=== PATIENT | female | born 1955 | race Caucasian/White ===

== ENCOUNTER 2022-11-07 13:36 | Outpatient (CLI) | payer MEDICARE | END 2022-11-07 13:37 | disposition critical access hospital (66) | LOC: EMS 13:36 | DX: R41.0 Disorientation, unspecified (principal); F41.9 Anxiety disorder, unspecified | CPT/HCPCS: A0425; A0427 ==

== ENCOUNTER 2022-11-07 14:57 | Inpatient (IN) | payer MEDICARE, OTHER ==
[2022-11-07] MEDS ORDERED: ONDANSETRON 4 MG/2 ML VIAL IVP STA (15:05)
--- NOTE | 2022-11-07 15:08 | ED Physician Documentation ---
PD HPI ALTERED MENTAL STATUS - Stated complaint Stated Complaint: AMS - History obtained from History obtained from: EMS - Additional information Additional information: All of the history is from EMS as the patient has altered mental status and cannot participate in history. Per EMS the son called 911 today because the patient was altered. Reportedly has been altered for a week but much worse of the last day or so. Recent report of UTI, and reportedly completed antibiotocs, but we are not sure which antibiotic.There is a history of mental health issues. Some concern for overdose. Also a history of alcoholism. Prehospital blood press ure was high in the range 160/120, the rest of her vitals were unremarkable with unremarkable blood sugar. Review of Systems Unable to obtain: Confused PD PAST MEDICAL HISTORY - Allergies Allergies/Adverse Reactions: Allergies Allergy/AdvReac Type Severity Reaction Status Date / Time No Known Drug Allergies Allergy Verified 11/07/22 15:07 PD ED PE NORMAL - Vitals Vital signs reviewed: Yes - General General: Other (Vomiting, largish pupils, which are reactive. Alert and oriented to person only. Does follow simple commands. Appears to have chills.) - HEENT HEENT: Other (Large reactive, pupils, dry mucous membranes) - Neck Neck: Supple, no meningeal sign, No bony TTP - Cardiac Cardiac: RRR, No murmur - Respiratory Respiratory: No respiratory distress, Clear bilaterally - Abdomen Abdomen: Soft, Non tender - Back Back: No CVA TTP, No spinal TTP - Derm Derm: Normal color, Warm and dry - Extremities Extremities: No edema, No calf tenderness / cord - Neuro Neuro: No motor deficit, No sensory deficit Eye Opening: Spontaneous Motor: Obeys Commands Verbal: Confused GCS Score: 14 Results - Vitals Vitals: Vital Signs - 24 hr 11/07/22 11/07/22 11/07/22 15:04 15:07 17:26 Temperature 37.2 C 37.2 C Heart Rate 70 70 103 H Respiratory 13 13 20 Rate Blood Pressure 170/89 H 170/89 H 144/100 H O2 Saturation 96 96 98 11/07/22 11/07/22 11/07/22 18:26 18:30 19:22 Temperature Heart Rate 73 72 68 Respiratory 24 24 22 Rate Blood Pressure 146/99 H 140/90 H 141/114 H O2 Saturation 94 94 100 11/07/22 19:30 Temperature 37.0 C Heart Rate 66 Respiratory 20 Rate Blood Pressure 138/90 H O2 Saturation 100 Oxygen O2 Source Room air - EKG (time done) 1521 Rate: Rate (enter#) (63) Rhythm: NSR Eunice: Normal Intervals: Normal AL QRS: Normal Ischemia: Normal ST segments - Labs Labs: Laboratory Tests 11/07/22 11/07/22 11/07/22 16:23 16:23 16:23 WBC 21.6 H RBC 4.50 Hgb 13.1 Hct 40.1 MCV 89.1 MCH 29.1 MCHC 32.7 RDW 12.7 Plt Count 298 MPV 10.0 Neut # (Auto) Not Reportable Lymph # (Auto) Not Reportable [place] # (Auto) Not Reportable Eos # (Auto) Not Reportable Baso # (Auto) Not Reportable Absolute Nucleated RBC Not Reportable Total Counted 100 Band Neuts % (Manual) 2 Abnorm Lymph % (Manual) 0 Nucleated RBC % Not Reportable Neutrophils # (Manual) 18.8 H Lymphocytes # (Manual) 1.9 Monocytes # (Manual) 0.9 Eosinophils # (Manual) 0.0 Basophils # (Manual) 0.0 Differential Comment MANUAL DIFFERENTIAL WBC Morphology 1+ TOXIC GRANULATION Platelet Estimate NORMAL (130-450,000) Platelet Morphology NORMAL APPEARANCE RBC Morph Micro Appear NORMAL APPEARANCE Sodium 138 Potassium 3.4 L Chloride 105 Carbon Dioxide 20 L Anion Gap 13.0 BUN 15 Creatinine 0.7 Estimated GFR (MDRD) 84 L Glucose 135 H Lactic Acid 2.1 Calcium 8.9 Total Bilirubin 1.2 H AST 34 ALT 16 Alkaline Phosphatase 99 Total Protein 7.3 Albumin 3.4 Globulin 3.9 Albumin/Globulin Ratio 0.9 L TSH Urine Color Urine Clarity Urine pH Ur Specific [place] Urine Protein Urine Glucose (UA) Urine Ketones Urine Occult Blood Urine Nitrite Urine Bilirubin Urine Urobilinogen Ur Leukocyte Esterase Urine RBC Urine WBC Ur Squamous Epith Cells Amorphous Sediment Urine Bacteria Urine Culture Comments Nasal Adenovirus (PCR) Nasal B. parapertussis DNA (PCR) Nasal Coronavir 229E PCR Nasal Coronavir HKU1 PCR Nasal Coronavir NL63 PCR Nasal Coronavir OC43 PCR Nasal Enterovir/Rhinovir PCR Nasal Influenza B PCR Nasal Influenza A PCR Nasal Parainfluen 1 PCR Nasal Parainfluen 2 PCR Nasal Parainfluen 3 PCR Nasal Parainfluen 4 PCR Nasal RSV (PCR) Nasal B.pertussis DNA PCR Nasal C.pneumoniae (PCR) [place] Human Metapneumo PCR Nasal M.pneumoniae (PCR) Nasal SARS-CoV-2 (PCR) Salicylates < 6.0 Urine Opiates Screen Ur Oxycodone Screen Urine Methadone Screen Ur Propoxyphene Screen Acetaminophen < 10 L Ur Barbiturates Screen Ur Tricyclics Screen Ur Phencyclidine Scrn Ur Amphetamine Screen U Methamphetamines Scrn U Benzodiazepines Scrn Urine Cocaine Screen U Cannabinoids Screen Ethyl Alcohol < 5.0 11/07/22 11/07/22 11/07/22 16:23 17:21 17:21 WBC RBC Hgb Hct MCV MCH MCHC RDW Plt Count MPV Neut # (Auto) Lymph # (Auto) [place] # (Auto) Eos # (Auto) Baso # (Auto) Absolute Nucleated RBC Total Counted Band Neuts % (Manual) Abnorm Lymph % (Manual) Nucleated RBC % Neutrophils # (Manual) Lymphocytes # (Manual) Monocytes # (Manual) Eosinophils # (Manual) Basophils # (Manual) Differential Comment WBC Morphology Platelet Estimate Platelet Morphology RBC Morph Micro Appear Sodium Potassium Chloride Carbon Dioxide Anion Gap BUN Creatinine Estimated GFR (MDRD) Glucose Lactic Acid Calcium Total Bilirubin AST ALT Alkaline Phosphatase Total Protein Albumin Globulin Albumin/Globulin Ratio TSH 0.92 Urine Color YELLOW Urine Clarity CLEAR Urine pH 7.5 Ur Specific [place] 1.015 Urine Protein NEGATIVE Urine Glucose (UA) NEGATIVE Urine Ketones 15 H Urine Occult Blood TRACE-INTA Urine Nitrite NEGATIVE Urine Bilirubin NEGATIVE Urine Urobilinogen 0.2 (NORMAL) Ur Leukocyte Esterase NEGATIVE Urine RBC 0-5 Urine WBC 0-3 Ur Squamous Epith Cells NONE SEEN Amorphous Sediment Rare Urine Bacteria None Seen Urine Culture Comments NOT INDICATED Nasal Adenovirus (PCR) NOT DETECTED Nasal B. parapertussis DNA (PCR) NOT DETECTED Nasal Coronavir 229E PCR NOT DETECTED Nasal Coronavir HKU1 PCR NOT DETECTED Nasal Coronavir NL63 PCR NOT DETECTED Nasal Coronavir OC43 PCR NOT DETECTED Nasal Enterovir/Rhinovir PCR NOT DETECTED Nasal Influenza B PCR NOT DETECTED Nasal Influenza A PCR NOT DETECTED Nasal Parainfluen 1 PCR NOT DETECTED Nasal Parainfluen 2 PCR NOT DETECTED Nasal Parainfluen 3 PCR NOT DETECTED Nasal Parainfluen 4 PCR NOT DETECTED Nasal RSV (PCR) NOT DETECTED Nasal B.pertussis DNA PCR NOT DETECTED Nasal C.pneumoniae (PCR) NOT DETECTED [place] Human Metapneumo PCR NOT DETECTED Nasal M.pneumoniae (PCR) NOT DETECTED Nasal SARS-CoV-2 (PCR) NOT DETECTED Salicylates Urine Opiates Screen NEGATIVE Ur Oxycodone Screen NEGATIVE Urine Methadone Screen NEGATIVE Ur Propoxyphene Screen NEGATIVE Acetaminophen Ur Barbiturates Screen NEGATIVE Ur Tricyclics Screen NEGATIVE Ur Phencyclidine Scrn NEGATIVE Ur Amphetamine Screen NEGATIVE U Methamphetamines Scrn NEGATIVE U Benzodiazepines Scrn POSITIVE H Urine Cocaine Screen NEGATIVE U Cannabinoids Screen NEGATIVE Ethyl Alcohol 11/07/22 19:38 WBC RBC Hgb Hct MCV MCH MCHC RDW Plt Count MPV Neut # (Auto) Lymph # (Auto) [place] # (Auto) Eos # (Auto) Baso # (Auto) Absolute Nucleated RBC Total Counted Band Neuts % (Manual) Abnorm Lymph % (Manual) Nucleated RBC % Neutrophils # (Manual) Lymphocytes # (Manual) Monocytes # (Manual) Eosinophils # (Manual) Basophils # (Manual) Differential Comment WBC Morphology Platelet Estimate Platelet Morphology RBC Morph Micro Appear Sodium Potassium Chloride Carbon Dioxide Anion Gap BUN Creatinine Estimated GFR (MDRD) Glucose Lactic Acid 2.1 Calcium Total Bilirubin AST ALT Alkaline Phosphatase Total Protein Albumin Globulin Albumin/Globulin Ratio TSH Urine Color Urine Clarity Urine pH Ur Specific [place] Urine Protein Urine Glucose (UA) Urine Ketones Urine Occult Blood Urine Nitrite Urine Bilirubin Urine Urobilinogen Ur Leukocyte Esterase Urine RBC Urine WBC Ur Squamous Epith Cells Amorphous Sediment Urine Bacteria Urine Culture Comments Nasal Adenovirus (PCR) Nasal B. parapertussis DNA (PCR) Nasal Coronavir 229E PCR Nasal Coronavir HKU1 PCR Nasal Coronavir NL63 PCR Nasal Coronavir OC43 PCR Nasal Enterovir/Rhinovir PCR Nasal Influenza B PCR Nasal Influenza A PCR Nasal Parainfluen 1 PCR Nasal Parainfluen 2 PCR Nasal Parainfluen 3 PCR Nasal Parainfluen 4 PCR Nasal RSV (PCR) Nasal B.pertussis DNA PCR Nasal C.pneumoniae (PCR) [place] Human Metapneumo PCR Nasal M.pneumoniae (PCR) Nasal SARS-CoV-2 (PCR) Salicylates Urine Opiates Screen Ur Oxycodone Screen Urine Methadone Screen Ur Propoxyphene Screen Acetaminophen Ur Barbiturates Screen Ur Tricyclics Screen Ur Phencyclidine Scrn Ur Amphetamine Screen U Methamphetamines Scrn U Benzodiazepines Scrn Urine Cocaine Screen U Cannabinoids Screen Ethyl Alcohol - Rads (name of study) Single view chest x-ray demonstrates multifocal right-sided opacities Radiology: Final report received, EMP read indepedently CT of the head shows atrophy and chronic ischemic change without anything acute. Radiology: Final report received, EMP read indepedently CT of the abdomen shows bibasilar pulmonary opacities, large hiatal hernia, otherwise unremarkable Radiology: Final report received, EMP read indepedently PD Medical Decision Making - ED course ED course: 66-year-old woman presents with an acute encephalopathy, complaints of abdominal pain but fairly benign exam but vomiting. She is tachycardic. Unable to participate in history. Work-up demonstrates a CBC showing significant leukocytosis of 21,600. CMP grossly unremarkable. Lactate normal at 2.1. TSH normal at 0.92. Urinalysis with some ketones but otherwise negative consistent with mild dehydration. Urine drug screen positive for benzodiazepines and alcohol, acetaminophen, and salicylate levels were negative. Chest x-ray demonstrating multifocal right- sided pneumonia. This fits with a leukocytosis. CT of the head and abdomen which were without acute findings. She was administered Rocephin and Zithromax after blood cultures. She will need to be admitted for pneumonia and encephalopathy. Decision to admit was made at approximately 6 PM on November 07. Unfortunately no beds are available in the hospital at this juncture and she will be boarding in the emergency department pending admission. Departure - Departure Disposition: [facility] DC/Xfer Clinical Impression: Encephalopathy, Pneumonia, Abdominal pain Condition: Serious
--- NOTE | 2022-11-07 16:23 | XRAY Report ---
PROCEDURE: Chest 1 View X-Ray INDICATIONS: chills, altered mental status TECHNIQUE: One view of the chest was acquired. COMPARISON: None. FINDINGS: Surgical changes and devices: None. Lungs and pleura: Mild opacities present at both lung bases and the right mid lung. No pleural effus ion or pneumothorax. Mediastinum: Cardiac silhouette is within normal limits for size. Possible hiatal hernia. Bones and chest wall: No suspicious bony lesions. Overlying soft tissues appear unremarkable. IMPRESSION: Opacities present at the right mid lung and both lung bases, could represent multifocal pneumonia but are nonspecific and other etiologies including but not limited to edema or atelectasis are also poss ible. Reviewed by: Jc Siddiqui MD on 11/07/2022 4:22 PM PST Approved by: Jc Siddiqui MD on 11/07/2022 4:22 PM PST Station ID: [id number]
[2022-11-07 16:34] LABS: BASOPHILS % (AUTO) 0.2 %; EOSINOPHILS % (AUTO) 0.1 %; HCT - HEMATOCRIT 40.1 % (37.0-47.0); HGB - HEMOGLOBIN 13.1 g/dL (12.0-16.0); LYMPHOCYTES % (AUTO) 6.8 %; MEAN CORPUSCULAR HEMOGLOBIN 29.1 pg (27.0-31.0); MEAN CORPUSCULAR HGB CONC 32.7 g/dL (32.0-36.0); MEAN CORPUSCULAR VOLUME 89.1 fL (81.0-99.0); MONOCYTES % (AUTO) 1.6 %; NEUTROPHILS % (AUTO) 90.5 %; PLT - PLATELET COUNT 298 10^3/uL (130-450); RED CELL DISTRIBUTION WIDTH 12.7 % (12.0-15.0); WHITE BLOOD COUNT 21.6 x10^3/uL (4.8-10.8)
[2022-11-07 16:38] LABS: ABNORMAL LYMPHS % (MANUAL) 0 %
[2022-11-07 16:45] LABS: LACTIC ACID, VENOUS 2.1 mmol/L (0.5-2.2)
[2022-11-07 16:50] LABS: ACETAMINOPHEN < 10 ug/mL (10-30); ALBUMIN 3.4 g/dL (3.2-5.5); ALBUMIN/GLOBULIN RATIO 0.9 (1.0-2.2); ALKALINE PHOSPHATASE 99 IU/L (42-121); ALT ALANINE AMINOTRANSFERASE 16 IU/L (10-60); AST ASPARTATE AMINOTRANSFERASE 34 IU/L (10-42); BILIRUBIN,TOTAL 1.2 mg/dL (0.2-1.0); BUN - BLOOD UREA NITROGEN 15 mg/dL (6-20); CALCIUM 8.9 mg/dL (8.5-10.3); CARBON DIOXIDE - CO2 20 mmol/L (21-32); CHLORIDE 105 mmol/L (101-111); CREATININE 0.7 mg/dL (0.4-1.0); ETOH - ETHANOL < 5.0 mg/dL; GFR - MDRD 84 (>89); GLUCOSE 135 mg/dL (70-100); POTASSIUM 3.4 mmol/L (3.5-5.0); SALICYLATE < 6.0 mg/dL; SODIUM 138 mmol/L (135-145); TOTAL PROTEIN 7.3 g/dL (6.7-8.2)
[2022-11-07] MEDS ORDERED: iohexoL-300 100 ML VIAL ONE (16:58)
[2022-11-07 17:01] LABS: BAND NEUTROPHILS % (MANUAL) 2 %; LYMPHOCYTES # (MANUAL) 1.9 10^3/uL (1.5-3.5); LYMPHOCYTES % (MANUAL) 9 %; MONOCYTES # (MANUAL) 0.9 10^3/uL (0.0-1.0); NEUTROPHILS # (MANUAL) 18.8 10^3/uL (1.5-6.6)
[2022-11-07 17:02] LABS: DIFFERENTIAL COMMENT MANUAL DIFFERENTIAL; PLATELET ESTIMATE, MANUAL NORMAL (130-450,000) (NORMAL); PLATELET MORPHOLOGY NORMAL APPEARANCE (NORMAL); RBC MORPHOLOGY (MULTIPLE) NORMAL APPEARANCE (NORMAL); WBC MORPHOLOGY (MULTIPLE) 1+ TOXIC GRANULATION (NORMAL)
[2022-11-07 17:26] LABS: MUDS CUTOFF CONCENTRATIONS CUTOFF CONC BELOW:
[2022-11-07 17:32] LABS: BILIRUBIN,URINE NEGATIVE (NEGATIVE); GLUCOSE, URINE (UA) NEGATIVE (NEGATIVE); KETONES,URINE (UA) 15 mg/dL (NEGATIVE); LEUKOCYTE ESTERASE, URINE NEGATIVE (NEGATIVE); NITRITE,URINE NEGATIVE (NEGATIVE); OCCULT BLOOD,URINE TRACE-INTA (NEGATIVE); PH,URINE 7.5 PH (5.0-7.5); PROTEIN,URINE NEGATIVE (NEGATIVE); UROBILINOGEN,URINE 0.2 (NORMAL) E.U./dL (NORMAL)
[2022-11-07 17:45] LABS: AMORPHOUS SEDIMENT,UR Rare /LPF; BACTERIA,URINE None Seen /HPF (None Seen); CLARITY,URINE CLEAR (CLEAR); RBC,URINE 0-5 /HPF (0-5); SQUAMOUS EPITHELIAL CELL,UR NONE SEEN (<= Few); WBC,URINE 0-3 /HPF (0-5)
[2022-11-07 17:47] LABS: AMPHETAMINE SCREEN,URINE NEGATIVE (NEGATIVE); BARBITURATE SCREEN,UR NEGATIVE (NEGATIVE); BENZODIAZEPINES SCREEN, URINE POSITIVE (NEGATIVE); COCAINE SCREEN URINE NEGATIVE (NEGATIVE); METHADONE SCREEN, URINE NEGATIVE (NEGATIVE); METHAMPHETAMINES SCREEN, URINE NEGATIVE (NEGATIVE); OPIATE SCREEN, URINE NEGATIVE (NEGATIVE); OXYCODONE SCREEN, URINE NEGATIVE (NEGATIVE); PROPOXYPHENE SCREEN, URINE NEGATIVE (NEGATIVE); THC CANNABINOID SCREEN, URINE NEGATIVE (NEGATIVE); TRICYCLIC ANTIDEPRESSANT,URINE NEGATIVE (NEGATIVE)
[2022-11-07] MEDS ORDERED: AZITHROMYCIN INJ 500 MG in SODIUM CHLORIDE 0.9% 250 ML IV STA (17:55)
[2022-11-07] MEDS ORDERED: cefTRIAXone 1 GM VIAL IVP STA (17:55)
[2022-11-07] MEDS ORDERED: ACETAMINOPHEN 500 MG TABLET PO PRN (17:56)
--- NOTE | 2022-11-07 18:08 | CT Report ---
PROCEDURE: CT brain without contrast INDICATIONS: ams TECHNIQUE: Noncontrast 4.5 mm thick angled axial sections acquired from the foramen magnum to the vertex. For r adiation dose reduction, the following was used: automated exposure control, adjustment of mA and/or kV according to patient size. COMPARISON: None. FINDINGS: Image quality: Excellent. CSF spaces: Basal cisterns are patent. No extra-axial fluid collections. Ventricles are normal in size and shape. Brain: No midline shift. No intracranial masses or hemorrhage. Honeycutt-white matter interface is norm al. Moderate atrophy and multifocal white matter chronic ischemic change noted. Atherosclerotic vasc ular calcification noted in the cavernous segments of both internal carotid arteries as well as the i ntradural vertebral arteries. Skull and face: Calvarium and visualized facial bones are intact, without suspicious lesions. Sinuses: Visualized sinuses and mastoids are clear. IMPRESSION: Atrophy and chronic ischemic change without intracranial hemorrhage or mass effect Reviewed by: Marvel Benson MD on 11/07/2022 5:07 PM AKST Approved by: Marvel Benson MD on 11/07/2022 5:07 PM AKST Station ID: [id number]
--- NOTE | 2022-11-07 18:11 | CT Report ---
PROCEDURE: ABDOMEN/PELVIS W INDICATIONS: iv only, abd pain CONTRAST: 100mL Omni 300 TECHNIQUE: After the administration of IV contrast, 5 mm thick sections acquired from the diaphragms to the symp hysis. 5 mm thick coronal and sagittal reformats were acquired. For radiation dose reduction, the f ollowing was used: automated exposure control, adjustment of mA and/or kV according to patient size. COMPARISON: None. FINDINGS: Image quality: Degraded by motion artifact. ABDOMEN: Lung bases: There is possible mild by basilar groundglass pulmonary opacity. Heart size is normal. Solid organs: Liver and spleen are normal in size and enhancement. Gallbladder grossly unremarkable . Biliary system is non dilated. Pancreas enhances normally. No adrenal nodules. Kidneys demonstr ate normal size and enhancement, without hydronephrosis. Peritoneum and bowel: Large hiatal hernia. Bowel loops demonstrate normal wall thickness and caliber . No free fluid or air. Normal appendix. Nodes and vessels: No retroperitoneal or mesenteric adenopathy by size criteria. Aorta and inferior vena cava are normal in size. Miscellaneous: No ventral hernias. PELVIS: Genitourinary: Bladder wall thickness is normal. Miscellaneous: No inguinal hernias or adenopathy. Bones: No suspicious bony lesions. No vertebral body compression fractures. IMPRESSION: 1. Bibasilar pulmonary opacities, consistent with edema versus pneumonia. 2. Large hiatal hernia. 3. Normal appendix. Reviewed by: Tomasa Arias MD on 11/07/2022 6:10 PM PST Approved by: Tomasa Arias MD on 11/07/2022 6:10 PM PST Station ID: [id number]
[2022-11-07 18:18] LABS: CORONAVIRUS 229E-RESP PCR NOT DETECTED; CORONAVIRUS HKU1-RESP PCR NOT DETECTED; CORONAVIRUS NL63-RESP PCR NOT DETECTED; CORONAVIRUS OC43-RESP PCR NOT DETECTED; HUMAN METAPNEUMOVIRUS NOT DETECTED; INFLUENZA A- RESP PCR PANEL NOT DETECTED; RHINOVIRUS/ENTEROVIRUS NOT DETECTED; SARS-CoV-2 -RESP PCR PANEL NOT DETECTED
[2022-11-07] MEDS: ONDANSETRON 4 MG/2 ML VIAL IVP PRN (18:18)
[2022-11-07 18:19] LABS: B. PARAPERTUSSIS- RESP PCR PAN NOT DETECTED; B. PERTUSSIS- RESP PCR PANEL NOT DETECTED; C. PNEUMONIAE- RESP PCR PANEL NOT DETECTED; INFLUENZA B - RESP PCR PANEL NOT DETECTED; M. PNEUMONIAE- RESP PCR PANEL NOT DETECTED; PARAINFLUENZA VIRUS 1 NOT DETECTED; PARAINFLUENZA VIRUS 2 NOT DETECTED; PARAINFLUENZA VIRUS 3 NOT DETECTED; PARAINFLUENZA VIRUS 4 NOT DETECTED; RSV- RESP PCR PANEL NOT DETECTED
[2022-11-07] MEDS ORDERED: iohexoL-300 100 ML VIAL IVP ONE (19:31)
[2022-11-07 19:54] LABS: LACTIC ACID, VENOUS 2.1 mmol/L (0.5-2.2)
[2022-11-07] MEDS ORDERED: METOCLOPRAMIDE 10 MG/2 ML VIAL IVP PRN (21:12)
[2022-11-07] MEDS ORDERED: LORazepam 2 MG/ML VIAL IVP STA (22:55)
[2022-11-07 23:05] LABS: LACTIC ACID, VENOUS 2.4 mmol/L (0.5-2.2)
[2022-11-08] MEDS ORDERED: LORazepam 2 MG/ML VIAL IVP STA ×3 (01:09→06:03)
[2022-11-08] MEDS: ONDANSETRON 4 MG/2 ML VIAL IVP PRN (04:50)
[2022-11-08 05:55] LABS: BASOPHILS % (AUTO) 0.2 %; HCT - HEMATOCRIT 37.7 % (37.0-47.0); HGB - HEMOGLOBIN 12.6 g/dL (12.0-16.0); LYMPHOCYTES # (AUTO) 1.7 10^3/uL (1.5-3.5); MEAN CORPUSCULAR HEMOGLOBIN 29.6 pg (27.0-31.0); MEAN CORPUSCULAR HGB CONC 33.4 g/dL (32.0-36.0); MEAN CORPUSCULAR VOLUME 88.5 fL (81.0-99.0); MEAN PLATELET VOLUME 10.2 fL (7.9-10.8); MONOCYTES # (AUTO) 0.7 10^3/uL (0.0-1.0); MONOCYTES % (AUTO) 3.7 %; NEUTROPHILS # (AUTO) 15.8 10^3/uL (1.5-6.6); NEUTROPHILS % (AUTO) 86.5 %; PLT - PLATELET COUNT 330 10^3/uL (130-450); RED BLOOD COUNT 4.26 10^6/uL (4.20-5.40); RED CELL DISTRIBUTION WIDTH 12.9 % (12.0-15.0); WHITE BLOOD COUNT 18.3 x10^3/uL (4.8-10.8)
[2022-11-08 06:11] LABS: CALCIUM 8.7 mg/dL (8.5-10.3); CREATININE 0.8 mg/dL (0.4-1.0); POTASSIUM 2.9 mmol/L (3.5-5.0)
[2022-11-08] MEDS ORDERED: PANTOPRAZOLE 40 MG TABLET PO SCH (07:00)
[2022-11-08] MEDS ORDERED: PANTOPRAZOLE 80 MG in SODIUM CHLORIDE 0.9% 100ML 100 ML IV STA ×4 (08:29)
[2022-11-08] MEDS ORDERED: SODIUM CHLORIDE 0.9% 1,000 ML IV STA (08:30)
--- NOTE | 2022-11-08 08:47 | ED Physician Documentation ---
ED Addendum - Addendum Addendum: Patient was signed out to me at shift change. She is boarding in the emergency department awaiting an inpatient bed.She is being treated for alcohol withdrawal, altered mental status, pneumonia and UTI. This morning she had 2 episodes of coffee-ground emesis. Lovenox was ordered but does not appear to have been given yet as DVT prophylaxis for pending admission.She was not able to tolerate p.o. Protonix this morning. Her potassium is low at 2.9. I did order IV replacement.I have DC'd the Lovenox and the p.o. Protonix. I have ordered a Protonix bolus and drip. 11/08/22 08:37 Discussed with on-call surgery, Dr. Aguilera. She will evaluate the patient And request that medicine help with resuscitating the patient first before consideration of any procedure. She does not band varices. I do not see any prior endoscopy notes here or through the [facility] to see if she has a known history of varices. 0842 - I updated the patient's son Baltazar. He reports that she has a history of acid reflux and was scheduled for an upper endoscopy at [facility] on November 15. He does not know of any prior upper endoscopies. He states that his mother has been sober since 2013 and does not feel that she has recently been drinking without his knowledge.He is aware of her episodes of emesis concerning for blood at this morning and continued plans for admission. Case D/W Dr. English. There is a bed available Patient will be admitted to the hospitalist service. She requests an ammonia level which has resulted and is negative.Patient has not had any further episodes of coffee-ground emesis. Patient was a difficult IV access. Anesthesia came down and placed a central line as there was high volume and acuity in the ED. She was given 2 mg of Versed for cooperation. She has been encephalopathic and trying to sit up and get out of bed so nonviolent restraints were also ordered. Departure - Departure Disposition: [facility] DC/Xfer Clinical Impression: Encephalopathy, Pneumonia, Abdominal pain, Coffee ground emesis Condition: Serious Discharge Date/Time: 11/08/22 15:37
[2022-11-08] MEDS ORDERED: cefTRIAXone 1 GM in SODIUM CHLORIDE 0.9% MINIBAG 100 ML IV SCH (09:00)
[2022-11-08] MEDS ORDERED: AZITHROMYCIN INJ 500 MG in SODIUM CHLORIDE 0.9% 250 ML IV SCH (09:00)
[2022-11-08] MEDS ORDERED: ENOXAPARIN 40 MG/0.4 ML SYRINGE SUBQ SCH (09:00)
[2022-11-08] MEDS: MULTIVITAMIN TABLET PO SCH (09:06)
[2022-11-08 09:39] LABS: HCT - HEMATOCRIT 39.4 % (37.0-47.0); HGB - HEMOGLOBIN 12.8 g/dL (12.0-16.0)
[2022-11-08 09:49] LABS: INR 1.2 (0.8-1.2); PT - PROTHROMBIN TIME 13.1 secs (9.9-12.6)
[2022-11-08] MEDS: POTASSIUM CHLOR 10 MEQ/100 ML 10 MEQ/100 ML BAG IV SCH ×4 (09:49→13:22)
--- NOTE | 2022-11-08 11:10 | CONSULTATION NOTE ---
Referring Provider Name of Referring Provider:: ED physician Consult Date: 11/08/22 Chief Complaint - Chief Complaint Chief Complaint: Hematemesis, altered mental status History of Present Illness - Admitted From Admitted From:: ED - History Obtained From History obtained from: ED physician Exam Limitations: Patient with altered mental status and unable to provide history - History of Present Illness HPI Comment/Other: The patient was admitted yesterday to the ED with altered mental status. She has a history of alcohol abuse. She does not have any documented scopes. This morning she had coffee-ground emesis. For this reason I was consulted. Upon my consult she was nonverbal and not able to answer any questions. Meds/Allgy - Allergies Allergies/Adverse Reactions: Allergies Allergy/AdvReac Type Severity Reaction Status Date / Time No Known Drug Allergies Allergy Verified 11/07/22 15:07 Review of Systems - Other Findings Other Findings: Unable to obtain due to nonverbal status except for grunting and mumbling Exam - Vital Signs Vital Signs: Vital Signs x48h Temp Pulse Resp BP Pulse Ox 11/08/22 10:49 100 27 H 123/101 H 99 11/08/22 10:13 92 22 120/77 98 11/08/22 08:18 98.8 F 102 H 23 132/76 H 98 11/08/22 07:00 73 20 131/85 H 99 11/08/22 06:30 94 20 107/88 H 99 11/08/22 06:00 100 24 140/87 H 96 11/08/22 05:30 73 25 H 140/87 H 96 11/08/22 05:00 97.3 F L 106 H 26 H 113/83 H 11/08/22 04:30 113 H 29 H 104/69 94 11/08/22 03:30 104 H 23 141/88 H 98 - Physical Exam General Appearance: positive: No acute distress, Other (Disheveled and nonverbal) Eyes Bilateral: positive: No scleral icterus Neck: positive: Nml inspection, No JVD, Trachea midline Respiratory: positive: Chest non-tender, No respiratory distress Cardiovascular: positive: Tachycardia (Mild sinus tachycardia) Peripheral Pulses: positive: 2+ Abdomen: positive: Non-tender, No organomegaly, No distention Skin: positive: Color nml Extremities: positive: Non-tender Neurologic/Psychiatric: positive: Disoriented to person, Disoriented to place, Disoriented to time Conclusion/Plan - Problem List (1) Hematemesis Conclusion/Plan: I have discussed plan with both the ED and the hospitalist. I will consult for hematemesis, but if the patient has any bright red blood she would need transfer for higher level of care due to concern for esophageal varices. Continue management for encephalopathy. Protonix drip. Continue n.p.o. status. - Lab Results Fish Bones: 11/08/22 09:33 11/08/22 05:16 - Diagnostic Imaging Results Diagnostic Imaging Results: positive: Final report reviewed (Films reviewed)
[2022-11-08] MEDS ORDERED: MIDAZOLAM 2 MG/2 ML VIAL IVP STA (11:55)
--- NOTE | 2022-11-08 12:26 | ANESTHESIA PROCEDURE NOTE ---
Anesth Central Line Template - Central Line Central Line Preparation: Unable to obtain consent, Time out completed, Ultra sound used, Sterile prep and drape Central line location: Right IJ Central line type: Triple lumen Central line catheter tip site resides: Superior vena cava (SVC) Central line aftercare: Chlorhexidine disc placed, Secured, Placement confirmed, No complications, Pt tolerated well
--- NOTE | 2022-11-08 13:19 | XRAY Report ---
PROCEDURE: Chest for Line Placement INDICATIONS: check for central line placement TECHNIQUE: One view of the chest was acquired. COMPARISON: 11/07/2022 FINDINGS: Surgical changes and devices: Right internal jugular vein central venous catheter is present, tip of which is in the lower SVC. Lungs and pleura: No pleural effusions or pneumothorax. Lungs are clear. Mediastinum: Mediastinal contours appear normal. Heart size is normal. Bones and chest wall: No suspicious bony lesions. Overlying soft tissues appear unremarkable. IMPRESSION: No acute process. Reviewed by: Tomasa Arias MD on 11/08/2022 1:18 PM PST Approved by: Tomasa Arias MD on 11/08/2022 1:18 PM PST Station ID: [id number]
[2022-11-08] MEDS ORDERED: ONDANSETRON 4 MG/2 ML VIAL IVP PRN (14:16)
[2022-11-08] MEDS ORDERED: SODIUM CHLORIDE FLUSH 0.9% 10 ML SYRINGE IVP PRN (14:16)
[2022-11-08] MEDS ORDERED: ONDANSETRON ODT 4 MG TABLET TL PRN (14:16)
[2022-11-08] MEDS ORDERED: ACETAMINOPHEN 325 MG TABLET PO PRN (14:16)
--- NOTE | 2022-11-08 14:29 | HISTORY & PHYSICAL EXAMINATION ---
History of Present Illness - Admitted From Admitted From:: home - History Obtained From Records Reviewed: [facility] History obtained from: son and Dr. Willoughby Exam Limitations: she is still not verbalizing - History of Present Illness HPI Comment/Other: Son lives with her and he called EMS. She'd been sick for 2 weeks. Got a UTI and on abx for that. Sees Ny Wiley at [facility]. Bseline for her is fine. She has GERD easily. Scheduled for endoscopy in next few days. Kind of tired and s edentary. Slowing down. In last few years cognitive ability going and can't remember things. She's worried bc of family hx of Alzheimers. Mental health issues are depression over the years, some anxiety. She has at times talked about killing herself but in the past described suicidal ideation but no attempts. Finances are a issue right now and last year so more anxious. 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 2 days before Saturday not sleeping much bc of anxiety so by Saturday went to bed and sleeping round the clock. When asked if she was ok she said her mind was racing about taxes but no fevers, cough, runny nose. On saturday still sleeping and i afternoon, emesis. Dry heaving. Delirious. Not speaking correctly and not making sense. 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 Brought in. When ambulance brought her into the ER temperature is 37.2. Heart rate was 70, regular, and sinus rhythm. Blood pressure 170/89. Respiratory effort was 13, normal, nonlabored. She is 96% on room air. She started having emesis. Pupils were large but reactive. She was alert and oriented to person only. Could not follow commands and appeared to be having rigors. She had dry mucous membranes. No respiratory distress. Benign abdomen. And a Miller Coma Scale of 14. Chest x-ray had right midlung and lung base opacities. Multifocal pneumonia was thought about, or atelectasis. A repeat chest x-ray after central line today shows no infiltrates. Because of the emesis head CT and abdominal pelvis CT was done. The head had atrophic and chronic ischemic changes without intracranial hemorrhage or affect. The abdomen had mild bibasilar groundglass opacities. Heart was normal. Solid organs were all normal. There is no hydronephrosis. On peritoneum and bowel she had a large hiatal hernia, and bowel loops were normal. No free air. Pelvis had normal bladder, no adenopathy no suspicious lesions. Urinalysis was without infection. White cell count was 21.6, and is now 18.3. Hemoglobin is 13.1 and is 12.8 today. Platelets were 298 and today they are 330. MCV is normal. INR is 1.2. Admission sodium was 138. Potassium 3.4. BUN 15, creatinine 0.7. Random glucose 135. Lactic acid was 2.1. Total bili 1.2. Liver enzymes normal. Ammonia level is 15. TSH is 0.92. Even though her son stated that mom was not drinking, there was a suspicion of alcohol withdrawal. Alcohol level was less than 5. Acetaminophen and salicylate levels were low. Her talk screen was positive for only benzodiazepines. She does not have benzodiazepines on her med list. Her son states that she had a bottle of temazepam in her room. Its a bottle that was le ft over from her 's prescriptions. Son is postulating that mom was so tired and wanted to get some sleep and may have taken her 's temazepam to get to sleep on Saturday. She was kept in the emergency room overnight because there are no beds. And this morning she had 2 episodes of coffee-ground emesis. She was not able to take p.o. Potassium was 2.9. As such a central line was placed in the ER, and she had potassium replacement. General surgery was called and she evaluated the patient but advised us that this hospital cannot handle esophageal varices. At this time CT of the chest and abdomen do not show us esophageal varices. She does not have black tarry stools. Over the course of her ER stay hemoglobin began at 13.1 and is 12.8 today. INR is 1.2. She has received azithromycin and ceftriaxone for the abnormal chest x-ray was identified the first time around. There has been no fever during her stay. She has been hypertensive at 154/111. Oxygenating well. There is now a bed available on [facility] and the patient is being placed in acute care status to be evaluated for the continued encephalopathy. History - Past Medical History Cardiovascular: reports: None Respiratory: reports: None Neuro: reports: None GI: reports: GERD, Other (hepatitis C) HOME MORTGAGE DISCLOSURE ACT SPECIALIST: reports: Other () : reports: Kidney stones HEENT: reports: Other (wears glasses) Psych: reports: Depression, Anxiety Musculoskeletal: reports: Osteoarthritis, Chronic back pain MRSA Hx?: No - Past Surgical History Ortho: reports: Arthroscopic surgery (L knee) /HOME MORTGAGE DISCLOSURE ACT SPECIALIST: reports: Hysterectomy, Oophrectomy - Family & Social History Family History Comment/Other: smoker. quit years ago. She was about 2013. alco hol abuse, quit 2013,. lives with son. Worked until 2005 when she and moved here. Was in [place], Living arrangement: At home Living Situation: With family Social History Notes: Mom still alive but dementia in [facility]. Dad of heart failure. Siblings: younger brother (halthy_ and older sister (stroke). Son is healthy - Substance History Use: Uses substance without health or social issues: NONE Abuse: Recurrent use of substance despite neg consequences: NONE Dependence: Experiences withdrawal or developed tolerances: NONE - POLST Patient has POLST: No POLST Status: Full Code (has advanced directive to be DNR if terminal or vegetative) Meds/Allgy - Allergies Allergies/Adverse Reactions: Allergies Allergy/AdvReac Type Severity Reaction Status Date / Time No Known Drug Allergies Allergy Verified 11/07/22 15:07 Review of Systems - Other Findings Other Findings: Unable to do review of systems other than what son told me in HPI Prior Level of Functionality: Described as still driving, paying bills, buying groceries, cooking, cleaning house. Slowing down, and no use of durable medical equipment Exam - Vital Signs Vital Signs: Vital Signs x48h Temp Pulse Resp BP Pulse Ox 11/08/22 14:00 95 21 152/94 H 95 11/08/22 13:30 102 H 19 147/114 H 100 11/08/22 12:30 100 24 134/100 H 98 11/08/22 11:30 36.4 C L 95 21 154/111 H 98 11/08/22 11:15 36.3 C L 94 26 H 131/84 H 96 11/08/22 10:49 100 27 H 123/101 H 99 11/08/22 10:13 92 22 120/77 98 11/08/22 08:18 37.1 C 102 H 23 132/76 H 98 11/08/22 07:00 73 20 131/85 H 99 11/08/22 06:30 94 20 107/88 H 99 Conclusion/Plan - Problem List (1) Encephalopathy Conclusion/Plan: Differential diagnosis of drug overdose with her 's temazepam. But no other toxicology is positive. Possibility of infection with white cell count of 21.6 thousand on admission. Today it is 18.3 with empiric antibiotics. However chest x-ray shows resolution of the pneumonia seen on admission, and no blood or urine cultures were done. Urinalysis had ketonuria but no bacteria was seen. Belly is benign and CT of chest abdomen pelvis and head do not show any anatomic changes of an infection. Possibility of stroke or seizure. No stroke is seen on CT. If this is seizure, this is a very prolonged postictal state. Plan: Supportive care is going to be our focus. IV fluids, antipyretics. (2) Coffee ground emesis Conclusion/Plan: In a patient who has a history of severe reflux, a large hiatal hernia. Sober since 2013 with alcohol level less than 5. CT of the chest shows no changes of the esophagus indicating varices. She does not have black tarry stools and her hemoglobin hematocrit are normal. This all seems to be more indicative of a gastritis. She is already been on a proton pump inhibitor. General surgery is already been consulted. Plan: Serial hemograms Continue proton pump inhibitor IV since she is not clearly taking p.o. (3) Leukocytosis Conclusion/Plan: Again, infection has already been considered and a good work-up has been done. The only thing left to do would be a lumbar puncture. White cell count is come down with empiric antibiotics to treat the "pneumonia" seen on first chest x- ray. She may have had some emesis changes with some pneumonitis. What I am seeing on the chest x-ray after central line placement and on lung exam is no signs or symptoms of pneumonia. I will not continue antibiotics and will continue to monitor for pneumonia Qualifiers: Leukocytosis type: unspecified Qualified Code(s): D72.829 - Elevated white blood cell count, unspecified - Lab Results Lab results reviewed: Yes Fish Bones: 11/08/22 09:33 11/08/22 05:16 - Diagnostic Imaging Results Diagnostic Imaging Results: positive: Final report reviewed - EKG Results EKG Interpreted Independently: No Core Measures - Anticipated LOS I expect patient to be DC'd or transferred within 96 hours.: Yes - DVT/VTE - Prophylaxis VTE/DVT Prophylaxis med ordered at admit?: Yes
[2022-11-08] MEDS: SODIUM CHLORIDE 0.9% 1,000 ML IV SCH (17:48)
[2022-11-08] MEDS: SODIUM CHLORIDE FLUSH 0.9% 10 ML SYRINGE IVP SCH (22:29)
[2022-11-09] MEDS: SODIUM CHLORIDE FLUSH 0.9% 10 ML SYRINGE IVP SCH ×3 (01:17→16:26)
[2022-11-09] MEDS: LORazepam 2 MG/ML VIAL IVP PRN ×2 (01:49→05:19)
[2022-11-09] MEDS: SODIUM CHLORIDE 0.9% 1,000 ML IV SCH ×2 (01:54→12:34)
[2022-11-09] MEDS: MULTIVITAMIN TABLET PO SCH (09:08)
[2022-11-09 09:12] LABS: BASOPHILS % (AUTO) 0.1 %; HCT - HEMATOCRIT 34.3 % (37.0-47.0); HGB - HEMOGLOBIN 11.4 g/dL (12.0-16.0); LYMPHOCYTES # (AUTO) 2.5 10^3/uL (1.5-3.5); LYMPHOCYTES % (AUTO) 18.1 %; MEAN CORPUSCULAR HEMOGLOBIN 29.8 pg (27.0-31.0); MEAN CORPUSCULAR HGB CONC 33.2 g/dL (32.0-36.0); MEAN CORPUSCULAR VOLUME 89.6 fL (81.0-99.0); MEAN PLATELET VOLUME 9.8 fL (7.9-10.8); MONOCYTES # (AUTO) 0.8 10^3/uL (0.0-1.0); NEUTROPHILS # (AUTO) 10.6 10^3/uL (1.5-6.6); NEUTROPHILS % (AUTO) 75.3 %; PLT - PLATELET COUNT 300 10^3/uL (130-450); RED BLOOD COUNT 3.83 10^6/uL (4.20-5.40); RED CELL DISTRIBUTION WIDTH 13.1 % (12.0-15.0); WHITE BLOOD COUNT 14.1 x10^3/uL (4.8-10.8)
[2022-11-09 09:18] LABS: CALCIUM 8.6 mg/dL (8.5-10.3); CREATININE 0.7 mg/dL (0.4-1.0)
--- NOTE | 2022-11-09 10:38 | PROVIDER PROGRESS NOTE ---
Subjective - Prog Note Date Prog Note Date: 11/09/22 Prog Note Time: 10:36 - Subjective Subjective: No acute events Objective - Vital Signs/Intake & Output Vital Signs: Vital Signs x48h Temp Pulse Resp BP BP Pulse Ox 11/09/22 08:33 99.1 F 73 16 131/83 H 98 11/09/22 04:00 99.0 F 80 18 138/81 H 97 Intake & Output: Intake & Output 11/06/22 11/07/22 11/08/22 11/09/22 23:59 23:59 23:59 23:59 Intake Total 250 1841.667 810 Output Total 300 Balance -50 1841.667 810 - Objective General Appearance: positive: No acute distress Neck: positive: Nml inspection Respiratory: positive: No respiratory distress Cardiovascular: positive: Regular rate & rhythm Abdomen: positive: Non-tender, No distention Extremities: positive: Non-tender Neurologic/Psychiatric: positive: Disoriented to place, Disoriented to time - Lab Results Fish Bones: 11/09/22 09:03 11/09/22 09:03 Other Labs: Lab Results x24hrs 11/09/22 11/09/22 11/08/22 Range/Units 09:03 09:03 12:15 WBC 14.1 H (4.8-10.8) x10^3/uL RBC 3.83 L (4.20-5.40) 10^6/uL Hgb 11.4 L (12.0-16.0) g/dL Hct 34.3 L (37.0-47.0) % MCV 89.6 (81.0-99.0) fL MCH 29.8 (27.0-31.0) pg MCHC 33.2 (32.0-36.0) g/dL RDW 13.1 (12.0-15.0) % Plt Count 300 (130-450) 10^3/uL MPV 9.8 (7.9-10.8) fL Neut # (Auto) 10.6 H (1.5-6.6) 10^3/uL Lymph # (Auto) 2.5 (1.5-3.5) 10^3/uL [place] # (Auto) 0.8 (0.0-1.0) 10^3/uL Eos # (Auto) 0.0 (0.0-0.7) 10^3/uL Baso # (Auto) 0.0 (0.0-0.1) 10^3/uL Absolute Nucleated RBC 0.00 x10^3/uL Nucleated RBC % 0.0 /100WBC Sodium 141 (135-145) mmol/L Potassium 3.0 L (3.5-5.0) mmol/L Chloride 111 (101-111) mmol/L Carbon Dioxide 17 L (21-32) mmol/L Anion Gap 13.0 (6-13) BUN 14 (6-20) mg/dL Creatinine 0.7 (0.4-1.0) mg/dL Estimated GFR (MDRD) 84 L (>89) Glucose 103 H (70-100) mg/dL Calcium 8.6 (8.5-10.3) mg/dL Ammonia 15.7 (7-35) umol/L - Diagnostic Imaging Diagnostic Imaging Results: positive: Final report reviewed Assessment/Plan - Problem List (1) Hematemesis Impression: H/H currently stable, no evidence of further hematemesis at this point. Mental status slightly improved. Continue medical mgmt. Will need outpatient endoscopy. Will follow for any surgical needs.
[2022-11-09] MEDS: POTASSIUM CHLORIDE 10 MEQ CAPSULE PO SCH ×3 (11:35→19:26)
[2022-11-09] MEDS: ENOXAPARIN 40 MG/0.4 ML SYRINGE SUBQ SCH (11:36)
[2022-11-09] MEDS: PANTOPRAZOLE 40 MG TABLET PO SCH ×2 (11:36→16:25)
--- NOTE | 2022-11-09 14:29 | PROVIDER PROGRESS NOTE ---
Subjective - Prog Note Date Prog Note Date: 11/09/22 Prog Note Time: 14:36 - Subjective Subjective: Patient is lying in bed quietly. Eyes open and she stares at the ceiling and wall. Turns her head to look at me when I walk in. Smiled spontaneously. Re straints are still in place because she is fidgety, agitated and keeps on wanting to pull out things. She has a right IJ. Unable to answer any my questions in a meaningful way. Current Medications - Current Medications Current Medications: Active Medications Acetaminophen (Acetaminophen 325 Mg Tablet) 650 mg PO Q4HR PRN PRN Reason: Pain 1 to 4, or Fever Enoxaparin Sodium (Enoxaparin 40 Mg/0.4 Ml Syringe) 40 mg SUBQ DAILY [facility] Last Admin: 11/09/22 11:36 Dose: 40 mg Sodium Chloride (Normal Saline 0.9%) 1,000 mls @ 100 mls/hr IV .Q10H [facility] Last Admin: 11/09/22 12:34 Dose: 100 mls/hr Lorazepam (Lorazepam 2 Mg/Ml Vial) 0.5 mg IVP Q2H PRN PRN Reason: Anxiety Last Admin: 11/09/22 05:19 Dose: 0.5 mg Metoclopramide HCl (Metoclopramide 10 Mg/2 Ml Vial) 10 mg IVP Q6H PRN PRN Reason: Nausea / Vomiting Last Admin: 11/07/22 21:23 Dose: 10 mg Multivitamins (Multivitamin Tablet) 1 tab PO DAILYWM [facility] Last Admin: 11/09/22 09:08 Dose: 1 tab Ondansetron HCl (Ondansetron Odt 4 Mg Tablet) 4 mg TL Q6HR PRN PRN Reason: Nausea / Vomiting Ondansetron HCl (Ondansetron 4 Mg/2 Ml Vial) 4 mg IVP Q6HR PRN PRN Reason: Nausea / Vomiting Pantoprazole Sodium (Pantoprazole 40 Mg Tablet) 40 mg PO BIDAC [facility] Last Admin: 11/09/22 11:36 Dose: 40 mg Potassium Chloride (Potassium Chloride 10 Meq Capsule) 20 meq PO Q4H [facility] Stop: 11/09/22 18:01 Last Admin: 11/09/22 11:35 Dose: 20 meq Sodium Chloride (Sodium Chloride Flush 0.9% 10 Ml Syringe) 10 ml IVP PRN PRN PRN Reason: NEEDED PER PROVIDER ORDERS Sodium Chloride (Sodium Chloride Flush 0.9% 10 Ml Syringe) 10 ml IVP 0100,090 0,1700 JAZMIN Last Admin: 11/09/22 09:09 Dose: 10 ml Ibuprofen [Motrin] 800 mg PO Q8H PRN 11/08/22 cephALEXin [Keflex] 500 mg PO Q6H 11/08/22 Objective - Vital Signs/Intake & Output Reviewed Vital Signs: Yes Vital Signs: Vital Signs x48h Temp Pulse Resp BP Pulse Ox 11/09/22 11:40 37.2 C 65 16 139/57 H 98 11/09/22 08:33 37.3 C 73 16 131/83 H 98 11/09/22 08:00 37.2 C 16 98 Intake & Output: Intake & Output 11/06/22 11/07/22 11/08/22 11/09/22 23:59 23:59 23:59 23:59 Intake Total 250 1474.997 4693 Output Total 300 Balance -50 1698.828 8487 - Objective General Appearance: positive: No acute distress, Alert, Other (Eyes open, looks at me, but verbal ability limited and she has echolalia) Eyes Bilateral: positive: PERRL, EOMI ENT: positive: No signs of dehydration Neck: positive: No JVD. negative: Stiff neck Respiratory: positive: No respiratory distress. negative: Wheezes, Rales, Rhonchi Cardiovascular: positive: Regular rate & rhythm Abdomen: positive: Non-tender, No organomegaly, Nml bowel sounds, No distention Skin: positive: Warm, Dry Extremities: positive: Full ROM. negative: No pedal edema Neurologic/Psychiatric: positive: CN's nml (2-12), Motor nml, Disoriented to person, Disoriented to place, Disoriented to time, Slurred/abnml speech (While she does repeat what I ask her. No spontaneous conversation. No questions of her own) - Lab Results Fish Bones: 11/09/22 09:03 11/09/22 09:03 Other Labs: Lab Results x24hrs 11/09/22 11/09/22 Range/Units 09:03 09:03 WBC 14.1 H (4.8-10.8) x10^3/uL RBC 3.83 L (4.20-5.40) 10^6/uL Hgb 11.4 L (12.0-16.0) g/dL Hct 34.3 L (37.0-47.0) % MCV 89.6 (81.0-99.0) fL MCH 29.8 (27.0-31.0) pg MCHC 33.2 (32.0-36.0) g/dL RDW 13.1 (12.0-15.0) % Plt Count 300 (130-450) 10^3/uL MPV 9.8 (7.9-10.8) fL Neut # (Auto) 10.6 H (1.5-6.6) 10^3/uL Lymph # (Auto) 2.5 (1.5-3.5) 10^3/uL [place] # (Auto) 0.8 (0.0-1.0) 10^3/uL Eos # (Auto) 0.0 (0.0-0.7) 10^3/uL Baso # (Auto) 0.0 (0.0-0.1) 10^3/uL Absolute Nucleated RBC 0.00 x10^3/uL Nucleated RBC % 0.0 /100WBC Sodium 141 (135-145) mmol/L Potassium 3.0 L (3.5-5.0) mmol/L Chloride 111 (101-111) mmol/L Carbon Dioxide 17 L (21-32) mmol/L Anion Gap 13.0 (6-13) BUN 14 (6-20) mg/dL Creatinine 0.7 (0.4-1.0) mg/dL Estimated GFR (MDRD) 84 L (>89) Glucose 103 H (70-100) mg/dL Calcium 8.6 (8.5-10.3) mg/dL Assessment/Plan - Problem List (1) Encephalopathy Impression: (1) Encephalopathy Conclusion/Plan: Differential diagnosis of drug overdose with her 's temazepam. Our thought of that is because that was the only positive drug in her toxicology screen. Pharmacy shared with me that she also had Nucynta in the plastic bag of pills brought in. It's generic name is Tapentadol, brand names Nucynta among others, and is a centrally acting opioid analgesic of the benzenoid class with a dual mode of action as an agonist of the mu-opioid receptor and as a norepinephrine reuptake inhibitor. Analgesia occurs within 32 minutes of oral administration, and lasts for 46 hours. Our pharmacist tells me that it is not available in this country. It needs to be brought [place] from [place]. [place] specifically. But I would think that her opioid tox screen would be positive and it is not. Other possibility of infection with white cell count of 21.6 thousand on admission. Today it has come down to 14.1 with empiric antibiotics. However repeat chest x-ray shows resolution of the pneumonia seen on admission, And urin e cultures were not done. Blood cultures were done and are negative.. Urinalysis had ketonuria but no bacteria was seen. Belly is benign and CT of chest abdomen pelvis and head do not show any anatomic changes of an infection. Possibility of stroke or seizure. No stroke is seen on CT. If this is seizure, this is a very prolonged postictal state. Possibility of some type of psychotic break. She started waking up the afternoon of November 08. But had echolalia. This morning she continues to be asleep but awakens easily. Smiles, is cooperative, and can tell me her name but not her last name. Cannot tell me where she is. And to be honest repeats the questions I asked her with echolalia again. She is fidgety. Restless. Constantly rolling back and forth in bed. She has a central line with the right IJ in place. Nurses are worried she is going to pull it out. She has been in restraints since admission. Plan: Supportive care Continues to be our focus. IV fluids, antipyretics. I am removing restraints to see how she does. But if she starts picking at her IV or her central line we may have to go back to the using a soft extremity restraints Start diet Telepsych phone consult when she is more verbal and able to participate (2) Coffee ground emesis Conclusion/Plan: In a patient who has a history of severe reflux, a large hiatal hernia. Sober since 2013 with alcohol level less than 5. CT of the chest shows no changes of the esophagus indicating varices. She does not have black tarry stools and her hemoglobin hematocrit are normal. This all seems to be more indicative of a gastritis. She is already been on a proton pump inhibitor. She had 2 episodes in the emergency room and has had none since she was brought to [facility] yesterday. General surgery has seen her as well. Hemoglobin staying stable. Plan: Serial hemograms Will stop today. Change proton pump inhibitor to p.o. I told general surgery they could sign off the case and she seems to be stable and no intervention on their part is needed right now. I will recall them if we need to (3) Leukocytosis Conclusion/Plan: Again, infection has already been considered and a good work-up has been done. The only thing left to do would be a lumbar puncture. White cell count is come down with empiric antibiotics to treat the "pneumonia" seen on first chest x- ray. She may have had some emesis changes with some pneumonitis. What I am seeing on the chest x-ray after central line placement and on lung exam is no signs or symptoms of pneumonia. I will not continue antibiotics and will continue to monitor for pneumonia So far exam has been negative. No hypoxia. No fever. And white cell count continues to come down with empiric antibiotics. Qualifiers: Leukocytosis type: unspecified Qualified Code(s): D72.829 - Elevated white blood cell count, unspecified (4) hypokalemia Supplement p.o. And recheck tomorrow.
[2022-11-09] MEDS ORDERED: AZITHROMYCIN INJ 500 MG in SODIUM CHLORIDE 0.9% 250 ML IV STA (14:40)
[2022-11-09] MEDS: cefTRIAXone 1 GM in SODIUM CHLORIDE 0.9% MINIBAG 100 ML IV SCH (14:55)
[2022-11-09] MEDS ORDERED: ZINC OXIDE 20% OINT 30 GM TUBE TOP PRN (18:25)
[2022-11-10] MEDS: SODIUM CHLORIDE 0.9% 1,000 ML IV SCH (00:16)
[2022-11-10] MEDS: SODIUM CHLORIDE FLUSH 0.9% 10 ML SYRINGE IVP SCH ×3 (00:16→16:35)
[2022-11-10 05:05] LABS: BASOPHILS % (AUTO) 0.1 %; HCT - HEMATOCRIT 35.4 % (37.0-47.0); HGB - HEMOGLOBIN 11.6 g/dL (12.0-16.0); LYMPHOCYTES # (AUTO) 1.9 10^3/uL (1.5-3.5); LYMPHOCYTES % (AUTO) 19.2 %; MEAN CORPUSCULAR HEMOGLOBIN 28.9 pg (27.0-31.0); MEAN CORPUSCULAR HGB CONC 32.8 g/dL (32.0-36.0); MEAN CORPUSCULAR VOLUME 88.1 fL (81.0-99.0); MEAN PLATELET VOLUME 9.9 fL (7.9-10.8); MONOCYTES # (AUTO) 0.8 10^3/uL (0.0-1.0); MONOCYTES % (AUTO) 7.8 %; NEUTROPHILS # (AUTO) 7.3 10^3/uL (1.5-6.6); NEUTROPHILS % (AUTO) 72.4 %; PLT - PLATELET COUNT 317 10^3/uL (130-450); RED BLOOD COUNT 4.02 10^6/uL (4.20-5.40); RED CELL DISTRIBUTION WIDTH 12.6 % (12.0-15.0); WHITE BLOOD COUNT 10.1 x10^3/uL (4.8-10.8)
[2022-11-10 05:24] LABS: CALCIUM 8.5 mg/dL (8.5-10.3); CREATININE 0.7 mg/dL (0.4-1.0)
[2022-11-10 06:02] LABS: POTASSIUM 2.5 mmol/L (3.5-5.0)
[2022-11-10] MEDS ORDERED: POTASSIUM CHLOR 10 MEQ/100 ML 10 MEQ/100 ML BAG IV ONE (06:40)
[2022-11-10] MEDS: PANTOPRAZOLE 40 MG TABLET PO SCH ×2 (07:08→16:34)
[2022-11-10] MEDS: ENOXAPARIN 40 MG/0.4 ML SYRINGE SUBQ SCH ×2 (09:54→10:05)
[2022-11-10] MEDS: POTASSIUM CHLOR 10 MEQ/100 ML 10 MEQ/100 ML BAG IV SCH ×4 (09:54→13:02)
[2022-11-10] MEDS: MULTIVITAMIN TABLET PO SCH (09:55)
[2022-11-10] MEDS: cefTRIAXone 1 GM in SODIUM CHLORIDE 0.9% MINIBAG 100 ML IV SCH (10:07)
--- NOTE | 2022-11-10 16:32 | PROVIDER PROGRESS NOTE ---
Progress Note November 10, 2022 4:19 PM She continues to need restraints this morning and all day long. She pulled out her IV last night. She still has the IJ in the right neck. Nursing reports that she was up all night long. She really did not sleep at all. Her last Ativan was around 11 PM, and she stayed awake all night. And then this morning around 8 AM went to sleep and is difficult to arouse. When I saw her this morning, she would not wake up to my shoulder shaking or calling her name. Pupils are still mid dilated, but reactive. She appears comfortable in her sleep. At 4:00 this afternoon I heard somebody saying "I need to pee". I got up to see who it was and its this patient. She is awake, alert, and does not really remember how she got here. But she knows that her son told her that she was acting strangely and that she vomited. She says that she is lucid. She is awake. And she promises not to pull out her IJ line. She also asks again "can I please go to the bathroom". In order to maintain the IJ, I redid the restraint orders for soft restraints. I may remove the order if she is compliant. Active Medications Acetaminophen (Acetaminophen 325 Mg Tablet) 650 mg PO Q4HR PRN PRN Reason: Pain 1 to 4, or Fever Enoxaparin Sodium (Enoxaparin 40 Mg/0.4 Ml Syringe) 40 mg SUBQ DAILY JAZMIN Last Admin: 11/10/22 10:05 Dose: Not Given Ceftriaxone Sodium 1 gm/ (Sodium Chloride) 100 mls @ 200 mls/hr IV DAILY [facility] Last Infusion: 11/10/22 10:37 Dose: Infused Lorazepam (Lorazepam 2 Mg/Ml Vial) 0.5 mg IVP Q2H PRN PRN Reason: Anxiety Last Admin: 11/09/22 05:19 Dose: 0.5 mg Metoclopramide HCl (Metoclopramide 10 Mg/2 Ml Vial) 10 mg IVP Q6H PRN PRN Reason: Nausea / Vomiting Last Admin: 11/07/22 21:23 Dose: 10 mg Multi-Ingredient Ointment (Zinc Oxide 20% Oint 30 Gm Tube) 1 applic TOP PRN PRN PRN Reason: Skin Care Last Admin: 11/10/22 14:41 Dose: 1 applic Multivitamins (Multivitamin Tablet) 1 tab PO DAILYWM [facility] Last Admin: 11/10/22 09:55 Dose: Not Given Ondansetron HCl (Ondansetron Odt 4 Mg Tablet) 4 mg TL Q6HR PRN PRN Reason: Nausea / Vomiting Ondansetron HCl (Ondansetron 4 Mg/2 Ml Vial) 4 mg IVP Q6HR PRN PRN Reason: Nausea / Vomiting Pantoprazole Sodium (Pantoprazole 40 Mg Tablet) 40 mg PO BIDAC [facility] Last Admin: 11/10/22 07:08 Dose: 40 mg Sodium Chloride (Sodium Chloride Flush 0.9% 10 Ml Syringe) 10 ml IVP PRN PRN PRN Reason: NEEDED PER PROVIDER ORDERS Last Admin: 11/09/22 19:26 Dose: 10 ml Sodium Chloride (Sodium Chloride Flush 0.9% 10 Ml Syringe) 10 ml IVP 0100,0900,1700 [facility] Last Admin: 11/10/22 09:55 Dose: 10 ml Ibuprofen [Motrin] 800 mg PO Q8H PRN 11/08/22 cephALEXin [Keflex] 500 mg PO Q6H 11/08/22 Exam: Temperature is 36.8. Pulse 65. Blood pressure 126/76. Respirations 16. 98% on room air. Alert oriented to place but not time. Does not really have a recollection of what happened in the last few days. Neck is supple and the right IJ is in place Lungs are clear to auscultation percussion without any tachypnea or respiratory effort. She is comfortable from a respiratory perspective Regular rate and rhythm Abdomen is soft, nontender. Even though she has been offered food she has not really eaten anything because she is not been awake enough. Last bowel movement was November 09. She has normal bowel sounds. Extremities are without edema. Sodium 139, potassium 2.5, BUN 10, creatinine 0.7. Hemoglobin 11.6. White cell count 10.1. Hematocrit 35. Platelets 317. Blood culture without growth for 2 days Assessment/plan 1. Acute encephalopathy. We wondered if she accidentally had a drug overdose with her 's temazepam. She is also taking a drug not approved by the FDA called Nucynta. We ruled her out for stroke, and treated her for him infection with empiric antibiotics, and thought about a mental disorder. Today she is abruptly at baseline. I am very happy for her. Right now she wo uld like to go to the bathroom. Would like to eat something. After a while I may go back and we speak to her about her recollection of anything that happened before this. It was a temazepam? Was that the Nucynta? I will stop restraint orders. And she promises not to pull out her right IJ 2. Coffee-ground emesis in the emergency room while awaiting admission. She is on proton pump inhibitor. Has not had recurrence of the emesis. Hemoglobin started at 13.1 and admission is now 11.6. General surgery has signed off. She may be a candidate for EGD in the outpatient setting. 3. Leukocytosis. Resolved today. We have been treating her empirically with ceftriaxone and azithromycin for possible scant pneumonia that was identified in the emergency room on chest x-ray. She completed azithromycin. Today will be day 3 of Rocephin. Plan for 5 days then discontinue. 4. Continued hypokalemia. Yesterday she can only take 2 of her 3 doses of potassium. This morning she continues to be hypokalemic. We gave her a K rider. Now that she is awake [place] supplemented orally.
[2022-11-10] MEDS: LORazepam 2 MG/ML VIAL IVP PRN (22:57)
[2022-11-11] MEDS: SODIUM CHLORIDE FLUSH 0.9% 10 ML SYRINGE IVP SCH ×3 (01:00→16:58)
[2022-11-11] MEDS: PANTOPRAZOLE 40 MG TABLET PO SCH ×2 (06:30→16:58)
[2022-11-11 08:09] LABS: CALCIUM 8.8 mg/dL (8.5-10.3); CREATININE 0.7 mg/dL (0.4-1.0); POTASSIUM 2.9 mmol/L (3.5-5.0)
[2022-11-11] MEDS: ENOXAPARIN 40 MG/0.4 ML SYRINGE SUBQ SCH (09:26)
[2022-11-11] MEDS: cefTRIAXone 1 GM in SODIUM CHLORIDE 0.9% MINIBAG 100 ML IV SCH (09:27)
[2022-11-11] MEDS: MULTIVITAMIN TABLET PO SCH (09:27)
[2022-11-11 10:16] LABS: BASOPHILS % (AUTO) 0.1 %; HCT - HEMATOCRIT 36.2 % (37.0-47.0); HGB - HEMOGLOBIN 12.2 g/dL (12.0-16.0); LYMPHOCYTES # (AUTO) 2.1 10^3/uL (1.5-3.5); LYMPHOCYTES % (AUTO) 22.1 %; MEAN CORPUSCULAR HEMOGLOBIN 29.5 pg (27.0-31.0); MEAN CORPUSCULAR HGB CONC 33.7 g/dL (32.0-36.0); MEAN CORPUSCULAR VOLUME 87.7 fL (81.0-99.0); MEAN PLATELET VOLUME 9.9 fL (7.9-10.8); MONOCYTES # (AUTO) 0.8 10^3/uL (0.0-1.0); MONOCYTES % (AUTO) 8.1 %; NEUTROPHILS # (AUTO) 6.6 10^3/uL (1.5-6.6); NEUTROPHILS % (AUTO) 69.1 %; PLT - PLATELET COUNT 350 10^3/uL (130-450); RED BLOOD COUNT 4.13 10^6/uL (4.20-5.40); RED CELL DISTRIBUTION WIDTH 12.7 % (12.0-15.0); WHITE BLOOD COUNT 9.5 x10^3/uL (4.8-10.8)
--- NOTE | 2022-11-11 15:13 | Discharge Plan ---
Discharge Plan Problem Reviewed?: Yes Disposition: Home, Self Care Condition: Fair Prescriptions: Pantoprazole [Protonix] 40 mg PO DAILY #30 tablet Diet: Regular Activity Restrictions: Activity as Tolerated Shower Restrictions: No Driving Restrictions: No Health Concerns: You presented to the hospital by ambulance because your son could not wake you up. You have been getting increasingly anxious about taxes and finances since your . He had not filed taxes for 2 years and you were left within approximately $60,000 tax burden. This was leaving you feeling more more anxious. You had not slept in a couple of days. We were able to figure out from what your son said and what you told us later that you took your 's tranquilizer pills. We also found you with blister packets of Nucynta which is an opioid drug from [place]. It is not available in the [place]. Your son let you sleep for the day but the next day you were not waking up. And when he did try and wake you up you were delirious and not making any sense we called an ambulance. While you are in the emergency room you vomited twice and you vomit ed but we think may have been old blood. We brought you into the hospital and gave you IV fluids just to support you through this. Your delirious, not making any sense. When he finally were able to speak you just repeated everything somebody asked you. On the evening of November 10 you woke up. You were yourself. You were lucid, and really could not remember much of anything. You were evaluated by department of mental health today. We talked about your previous history of depression, but this was not an overdose attempt. As such, the mental health provider feels that you are safe to go home. Plan of Treatment: 1. Please see your primary care provider, Ny Wiley, in the next 2 weeks. We would like her to see you for anxiety and depression and possibly refer you for counseling as well as medication. 2. Pharmacy feels that the tranquilizers from her 's prescription, and the Nucynta are not safe for you and those will not be returned to you. 3. Because you had the vomiting in the emergency room, please take Protonix once a day for the next 30 days. You are scheduled for an upper and lower endoscopy in the next few weeks. Make sure you keep that appointment. Care Goals: Hopefully the stressors in your life will not remain overwhelming. We offered our condolences on the loss of your . And we also understand what you must be going through with regards to finances and stressors. We hope that you have an answer to your reflux with the endoscopies in the next couple of weeks. And we hope that you are able to see your primary care provider for help. Assessment: Patient is alert, oriented, completely lucid again. Speech is normal. Following commands. Son will now be helping her take her medications. No Smoking: If you smoke, Please STOP! Call for help. Follow-up with: NY WILEY ARNP [Primary Care Provider] -
[2022-11-11] MEDS ORDERED: POTASSIUM CHLORIDE 20 MEQ TABLET PO ONE (15:26)
--- NOTE | 2022-11-11 15:30 | DISCHARGE SUMMARY ---
Discharge Summary Admit Date: 11/08/22 Discharge Date: 11/11/22 Discharging Provider: Casi English MD Primary Care Provider: Ny Wiley MD Code Status: Attempt Resuscitation Condition at Discharge: Fair Discharge Disposition: 01 Home, Self Care - DIAGNOSES Discharge Diagnoses with Status of Each Condition: 1. Acute metabolic encephalopathy and delirium 2. Coffee-ground emesis 3. Leukocytosis 4. Hypokalemia 5. Depression with anxiety 6. Use of nonprescription opioid drugs 7. Patient takes nonprescribed prescription medication - HPI History of Present Illness: Son lives with her and he called EMS. She'd been sick for 2 weeks. Got a UTI and on abx for that. Sees Ny Wiley at [facility]. Bseline for her is fine. She has GERD easily. Scheduled for endoscopy in next few days. Kind of tired and sedentary. Slowing down. In last few years cognitive ability going and can't remember things. She's worried bc of family hx of Alzheimers. Mental health issues are depression over the years, some anxiety. She has at times talked about killing herself but in the past described suicidal ideation but no attempts. Finances are a issue right now and last year so more anxious. 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 2 days before Saturday not sleeping much bc of anxiety so by Saturday went to bed and sleeping round the clock. When asked if she was ok she said her mind was racing about taxes but no fevers, cough, runny nose. On saturday still sleeping and i afternoon, emesis. Dry heaving. Delirious. Not speaking correctly and not making sense. 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 Brought in. When ambulance brought her into the ER temperature is 37.2. Heart rate was 70, regular, and sinus rhythm. Blood pressure 170/89. Respiratory effort was 13, normal, nonlabored. She is 96% on room air. She started having emesis. Pupils were large but reactive. She was alert and oriented to person only. Could not follow commands and appeared to be having rigors. She had dry mucous membranes. No respiratory distress. Benign abdomen. And a [place] Coma Scale of 14. Chest x-ray had right midlung and lung base opacities. Multifocal pneumonia was thought about, or atelectasis. A repeat chest x-ray after central line today shows no infiltrates. Because of the emesis head CT and abdominal pelvis CT was done. The head had atrophic and chronic ischemic changes without intracranial hemorrhage or affect. The abdomen had mild bibasilar groundglass opacities. Heart was normal. Solid organs were all normal. There is no hydronephrosis. On peritoneum and bowel she had a large hiatal hernia, and bowel loops were normal. No free air. Pelvis had normal bladder, no adenopathy no suspicious lesions. Urinalysis was without infection. White cell count was 21.6, and is now 18.3. Hemoglobin is 13.1 and is 12.8 today. Platelets were 298 and today they are 330. MCV is normal. INR is 1.2. Admission sodium was 138. Potassium 3.4. BUN 15, creatinine 0.7. Random glucose 135. Lactic acid was 2.1. Total bili 1.2. Liver enzymes normal. Ammonia level is 15. TSH is 0.92. Even though her son stated that mom was not drinking, there was a suspicion of alcohol withdrawal. Alcohol level was less than 5. Acetaminophen and salicylate levels were low. Her talk screen was positive for only benzodiazepines. She does not have benzodiazepines on her med list. Her son states that she had a bottle of temazepam in her room. Its a bottle that was left over from her 's prescriptions. Son is postulating that mom was so tired and wanted to get some sleep and may have taken her 's temazepam to get to sleep on Saturday. She was kept in the emergency room overnight because there are no beds. And this morning she had 2 episodes of coffee-ground emesis. She was not able to take p.o. Potassium was 2.9. As such a central line was placed in the ER, and she had potassium replacement. General surgery was called and she evaluated the patient but advised us that this hospital cannot handle esophageal varices. At this time CT of the chest and abdomen do not show us esophageal varices. She does not have black tarry stools. Over the course of her ER stay hemoglobin began at 13.1 and is 12.8 today. INR is 1.2. She has received azithromycin and ceftriaxone for the abnormal chest x-ray was identified the first time around. There has been no fever during her stay. She has been hypertensive at 154/111. Oxygenating well. There is now a bed available on [facility] and the patient is being placed in acute care status to be evaluated for the continued encephalopathy. - Past Medical History Cardiovascular: reports: None Respiratory: reports: None Neuro: reports: None GI: reports: GERD, Other (hepatitis C) SHOP TECH: reports: Other () : reports: Kidney stones HEENT: reports: Other (wears glasses) Psych: reports: Depression, Anxiety Musculoskeletal: reports: Osteoarthritis, Chronic back pain MRSA Hx?: No - Past Surgical History Ortho: reports: Arthroscopic surgery (L knee) /SHOP TECH: reports: Hysterectomy, Oophrectomy - HOSPITAL COURSE Hospital Course: The patient took 2 days to wake up. When she was alert enough to speak, she had echolalia. She was cooperative but really not eating or drinking on her own. We provided her with IV fluids. Unfortunately we had to have her in soft upper extremity restraints because she kept on fidgeting. She pulled out her IV. And we did not want her to pull out her right IJ line. On the evening of November 10 she was completely awake. I heard a voice in the hallway asking "can someone help me pee" and I went to get up and it was her. She was lucid. Speech was intact. Conversation was normal. She was asking appropriate questions and answering appropriately. We found that she had been taking her 's temazepam (he is and had an old bottle left at home) and we also found that she was taking Nucynta. The latter is a controlled substance that is available through [place] and not available in the [place]. She has been clean and sober since 2013 and is adamant she is not drinking alcohol. She did receive empiric antibiotics for a scant infiltrate seen on chest x-ray. She completed 3 days of azithromycin and 4 days of Rocephin. White cell count was 21,000 on admission and it came down to 10,000 on November 10. At discharge she was 9.5 thousand. Oxygenating normally and had a normal lung exam. Because we were worried about anxiety, depression and possibly a suicide attemp t, [facility] was called and evaluated her. They were able to elicit a history of stress, anxiety, and quite a bit of financial worried because of her 's . But there is no suicide attempt. She was advised not to take any prescriptions that were not specifically for her. She is to follow-up with an upper and lower endoscopy in the next few weeks as already scheduled by her primary care provider for other problems. She is discharged in stable condition, temperature is 37. Heart rate 64. Blood pressure 113/66. Respirations 17. 97% on room air. Lungs were clear. No respiratory distress. Regular rate and rhythm. Abdomen soft, nontender. Extremities without edema. Ambulating in the room without any assistance or ataxia. She was alert and oriented to person place and time. No cranial nerve deficits found. No focal neurologic strength deficits found. Greater than 30 minutes was spent coordinating discharge - ALLERGIES Allergies/Adverse Reactions: Allergies Allergy/AdvReac Type Severity Reaction Status Date / Time No Known Drug Allergies Allergy Verified 11/07/22 15:07 - MEDICATIONS Home Medications: Ambulatory Orders Medication Instructions Recorded Confirmed Ibuprofen [Motrin] 800 mg PO Q8H PRN 11/08/22 11/08/22 cephALEXin [Keflex] 500 mg PO Q6H 11/08/22 11/08/22 Pantoprazole [Protonix] 40 mg PO DAILY #30 tablet 11/11/22 - LABS Result Diagrams: 11/11/22 04:20 11/11/22 04:20
[2022-11-11 17:45] VITALS: BP 138/81
== END 2022-11-11 18:00 | disposition home or self-care (01) | DRG 917 ==
LOC: EDUNIT# → ED 14:57 → MS2 11-08 14:16
PROVIDERS: ADMIT Specialist; ATTEND Specialist
DX: T42.4X4A Poisoning by benzodiazepines, undetermined, initial encounter (principal); G93.40 Encephalopathy, unspecified; F10.239 Alcohol dependence with withdrawal, unspecified; G92.8 Other toxic encephalopathy; R41.82 Altered mental status, unspecified; R11.10 Vomiting, unspecified; J18.9 Pneumonia, unspecified organism; N39.0 Urinary tract infection, site not specified; Z20.822 Contact with and (suspected) exposure to COVID-19; K92.0 Hematemesis; Y92.009 Unspecified place in unspecified non-institutional (private) residence as the place of occurrence of the external cause; K29.70 Gastritis, unspecified, without bleeding; E87.6 Hypokalemia; F41.8 Other specified anxiety disorders; T40.2X4A Poisoning by other opioids, undetermined, initial encounter; K21.9 Gastro-esophageal reflux disease without esophagitis; R41.89 Other symptoms and signs involving cognitive functions and awareness; Z78.1 Physical restraint status; I10 Essential (primary) hypertension; R48.8 Other symbolic dysfunctions; F43.9 Reaction to severe stress, unspecified; Z87.891 Personal history of nicotine dependence; K44.9 Diaphragmatic hernia without obstruction or gangrene
CPT/HCPCS: 36415; 51701; 70450; 71045; 74177; 80048; 80053; 80306; 80307; 81001; 82140; 83605; 83735; 84443; 85014; 85018; 85025; 85610; 86850; 86900; 86901; 87040; 87633; 93005; 96365; 96366; 96367; 96368; 96375; 96376; 99284; 99285; A9270; G0480; J1650; J2060; J2765; Q9967; 80320; 80329; 87086

== ENCOUNTER 2022-11-13 12:41 | Outpatient (CLI) | payer MEDICARE | END 2022-11-13 12:42 | disposition left against medical advice (07) | LOC: EMS 12:41 | DX: R44.1 Visual hallucinations (principal); R11.2 Nausea with vomiting, unspecified; Z72.820 Sleep deprivation; R45.4 Irritability and anger; R45.1 Restlessness and agitation; M79.605 Pain in left leg; M79.604 Pain in right leg ==

== ENCOUNTER 2023-05-20 13:12 | Outpatient (CLI) | payer MEDICARE | END 2023-05-20 23:59 | disposition short-term general hospital (02) | LOC: EMS 13:12 | DX: R53.1 Weakness (principal); R11.2 Nausea with vomiting, unspecified; R30.0 Dysuria; R41.0 Disorientation, unspecified | CPT/HCPCS: A0425; A0427; A0888 ==

== ENCOUNTER 2023-05-27 11:08 | Outpatient (CLI) | payer MEDICARE | END 2023-05-27 23:59 | disposition short-term general hospital (02) | LOC: EMS 11:08 | DX: R11.2 Nausea with vomiting, unspecified (principal) | CPT/HCPCS: A0425; A0427; A0888 ==

== ENCOUNTER 2023-09-24 12:19 | Outpatient (CLI) | payer MEDICARE | END 2023-09-24 12:20 | disposition short-term general hospital (02) | LOC: EMS 12:19 | PROVIDERS: ATTEND Emergency Medicine | DX: R10.31 Right lower quadrant pain (principal); R19.7 Diarrhea, unspecified; R11.2 Nausea with vomiting, unspecified | CPT/HCPCS: A0425; A0429 ==

== ENCOUNTER 2024-04-20 19:55 | Outpatient (CLI) | payer MEDICARE | END 2024-04-20 23:59 | disposition critical access hospital (66) | LOC: EMS 19:55 | DX: T40.2X1A Poisoning by other opioids, accidental (unintentional), initial encounter (principal); R41.82 Altered mental status, unspecified; R29.810 Facial weakness | CPT/HCPCS: A0425; A0427 ==

== ENCOUNTER 2024-04-20 20:23 | Inpatient (IN) | payer MEDICARE ==
[2024-04-20] MEDS: LORazepam 2 MG/ML VIAL IVP STA (20:45)
[2024-04-20] MEDS: SODIUM CHLORIDE 0.9% 1,000 ML IV STA (20:45)
[2024-04-20 21:22] LABS: INR 1.1 (0.8-1.2); PT - PROTHROMBIN TIME 12.4 secs (9.9-12.6)
[2024-04-20] MEDS: DROPERIDOL 5 MG/2 ML VIAL IVP STA (21:22)
[2024-04-20 21:31] LABS: CK- CREATINE KINASE 71 IU/L (30-223); ETOH - ETHANOL < 10.0 mg/dL; MAGNESIUM 1.8 mg/dL (1.7-2.3)
[2024-04-20 21:33] LABS: ALBUMIN 4.5 g/dL (3.2-5.5); ALBUMIN/GLOBULIN RATIO 1.2 (1.0-2.2); ALKALINE PHOSPHATASE 111 IU/L (42-121); ALT ALANINE AMINOTRANSFERASE 11 IU/L (10-60); AST ASPARTATE AMINOTRANSFERASE 23 IU/L (10-42); BILIRUBIN,TOTAL 0.8 mg/dL (0.2-1.0); BUN - BLOOD UREA NITROGEN 14 mg/dL (6-20); CALCIUM 10.3 mg/dL (8.5-10.3); CARBON DIOXIDE - CO2 22 mmol/L (21-32); CHLORIDE 104 mmol/L (101-111); CREATININE 0.8 mg/dL (0.6-1.3); GFR - MDRD 72 (>89); GLUCOSE 164 mg/dL (74-104); LIPASE < 10 U/L (11-82); POTASSIUM 3.8 mmol/L (3.5-4.5); SODIUM 142 mmol/L (135-145); TOTAL PROTEIN 8.4 g/dL (6.4-8.9)
[2024-04-20 21:34] LABS: ACETAMINOPHEN < 0.1 ug/mL; SALICYLATE < 1.5 mg/dL
[2024-04-20 22:00] LABS: BASOPHILS % (AUTO) 0.1 %; HCT - HEMATOCRIT 39.8 % (37.0-47.0); LYMPHOCYTES % (AUTO) 10.1 %; MEAN CORPUSCULAR HEMOGLOBIN 25.4 pg (27.0-31.0); MEAN CORPUSCULAR HGB CONC 30.2 g/dL (32.0-36.0); MEAN CORPUSCULAR VOLUME 84.3 fL (81.0-99.0); MEAN PLATELET VOLUME 9.7 fL (7.9-10.8); MONOCYTES # (AUTO) 0.3 10^3/uL (0.0-1.0); MONOCYTES % (AUTO) 3.1 %; NEUTROPHILS # (AUTO) 8.6 10^3/uL (1.5-6.6); NEUTROPHILS % (AUTO) 86.5 %; PLT - PLATELET COUNT 352 10^3/uL (130-450); RED BLOOD COUNT 4.72 10^6/uL (4.20-5.40); WHITE BLOOD COUNT 9.9 x10^3/uL (4.8-10.8)
[2024-04-20 22:01] LABS: VBG BASE EXCESS -2.4 mmol/L (-2 - +2); VBG HCO3 19.6 mmol/L (23-28); VBG OXYGEN SATURATION 78.3 % (60-80); VBG PCO2 26.8 mmHg (41-51); VBG PH 7.482 (7.31-7.41); VBG PO2 39.8 mmHg (25-47); VBG TOTAL CO2 20.4 mmol/L (24-29)
[2024-04-20 22:09] LABS: B. PARAPERTUSSIS- RESP PCR PAN NOT DETECTED; B. PERTUSSIS- RESP PCR PANEL NOT DETECTED; C. PNEUMONIAE- RESP PCR PANEL NOT DETECTED; CORONAVIRUS 229E-RESP PCR NOT DETECTED; CORONAVIRUS HKU1-RESP PCR NOT DETECTED; CORONAVIRUS NL63-RESP PCR NOT DETECTED; CORONAVIRUS OC43-RESP PCR NOT DETECTED; HUMAN METAPNEUMOVIRUS NOT DETECTED; INFLUENZA A- RESP PCR PANEL NOT DETECTED; INFLUENZA B - RESP PCR PANEL NOT DETECTED; M. PNEUMONIAE- RESP PCR PANEL NOT DETECTED; PARAINFLUENZA VIRUS 1 NOT DETECTED; PARAINFLUENZA VIRUS 2 NOT DETECTED; PARAINFLUENZA VIRUS 3 NOT DETECTED; PARAINFLUENZA VIRUS 4 NOT DETECTED; RHINOVIRUS/ENTEROVIRUS NOT DETECTED; RSV- RESP PCR PANEL NOT DETECTED; SARS-CoV-2 -RESP PCR PANEL NOT DETECTED
--- NOTE | 2024-04-20 22:35 | XRAY Report ---
PROCEDURE: Chest 1V INDICATIONS: chest pain TECHNIQUE: One view of the chest was acquired. COMPARISON: Chest x-ray 8 11/08/2022 FINDINGS: Surgical changes and devices: None. Lungs and pleura: No pleural effusions or pneumothorax. Lungs are clear. Mediastinum: Mediastinal contours appear normal. Heart size is normal. Bones and chest wall: No suspicious bony lesions. Overlying soft tissues appear unremarkable. IMPRESSION: No acute cardiopulmonary process. Reviewed by: Vickie Thompson MD on 04/20/2024 10:33 PM PDT Approved by: Vickie Thompson MD on 04/20/2024 10:33 PM PDT Station ID: [id number]
--- NOTE | 2024-04-20 22:36 | CT Report ---
PROCEDURE: Head WO INDICATIONS: AMS TECHNIQUE: Noncontrast 4.5 mm thick angled axial sections acquired from the foramen magnum to the vertex. For r adiation dose reduction, the following was used: automated exposure control, adjustment of mA and/or kV according to patient size. COMPARISON: CT head 11/07/2022 FINDINGS: Image quality: Excellent. CSF spaces: Basal cisterns are patent. No extra-axial fluid collections. Ventricles are normal in size and shape. Brain: No midline shift. No intracranial masses or hemorrhage. Honeycutt-white matter interface is norm al. Skull and face: Calvarium and visualized facial bones are intact, without suspicious lesions. Sinuses: Visualized sinuses demonstrate trace scattered mucosal thickening most prominent in the max illary sinuses. IMPRESSION: No acute intracranial pathology. Reviewed by: Vickie Thompson MD on 04/20/2024 10:34 PM PDT Approved by: Vickie Thompson MD on 04/20/2024 10:34 PM PDT Station ID: [id number]
[2024-04-20 23:36] LABS: BILIRUBIN,URINE NEGATIVE (NEGATIVE); GLUCOSE, URINE (UA) 100 mg/dL (NEGATIVE); KETONES,URINE (UA) 15 mg/dL (NEGATIVE); LEUKOCYTE ESTERASE, URINE NEGATIVE (NEGATIVE); NITRITE,URINE NEGATIVE (NEGATIVE); OCCULT BLOOD,URINE TRACE-LYSE (NEGATIVE); PH,URINE 7.5 PH (5.0-7.5); PROTEIN,URINE NEGATIVE (NEGATIVE); UROBILINOGEN,URINE 0.2 (NORMAL) E.U./dL (NORMAL)
[2024-04-20 23:37] LABS: CLARITY,URINE CLEAR (CLEAR)
[2024-04-20 23:48] LABS: AMPHETAMINE SCREEN,URINE NEGATIVE (NEGATIVE); BARBITURATE SCREEN,UR NEGATIVE (NEGATIVE); BENZODIAZEPINES SCREEN, URINE POSITIVE (NEGATIVE); BUPRENORPHINE SCREEN, URINE NEGATIVE (NEGATIVE); COCAINE SCREEN URINE NEGATIVE (NEGATIVE); METHADONE SCREEN, URINE NEGATIVE (NEGATIVE); METHAMPHETAMINES SCREEN, URINE NEGATIVE (NEGATIVE); OPIATE SCREEN, URINE NEGATIVE (NEGATIVE); OXYCODONE SCREEN, URINE NEGATIVE (NEGATIVE); THC CANNABINOID SCREEN, URINE NEGATIVE (NEGATIVE); TRICYCLIC ANTIDEPRESSANT,URINE NEGATIVE (NEGATIVE)
[2024-04-20] MEDS: cefTRIAXone 1 GM VIAL IVP STA (23:53)
[2024-04-21] MEDS ORDERED: iohexoL-300 100 ML VIAL ONE (00:37)
[2024-04-21] MEDS: METOCLOPRAMIDE 10 MG/2 ML VIAL IVP STA ×2 (00:39→03:22)
[2024-04-21] MEDS: iohexoL-300 100 ML VIAL IVP ONE (01:47)
--- NOTE | 2024-04-21 01:53 | CT Report ---
PROCEDURE: Angio Chest INDICATIONS: AMS, sepsis unknown sour, rule out PE CONTRAST: Omni 300, 100mls TECHNIQUE: After the administration of intravenous contrast, 2 mm axial images were acquired from the pulmonary apices to the posterior costophrenic angles during the arterial phase. In addition, 1 mm lung kernel and 5 mm soft tissue kernel reconstructions were performed. 3-dimensional coronal oblique maximum int ensity projection (MIP) reformats, 8 mm axial MIP, and 5 mm coronal and sagittal MPR reformats were t hen performed through the thorax. For radiation dose reduction, the following was used: automated exp osure control, adjustment of mA and/or kV according to patient size. COMPARISON: Chest x-ray 04/20/2024 FINDINGS: Image quality: Contrast opacification of the pulmonary arteries is suboptimal for branches distal to the central pulmonary arteries. Large vessels: No filling defects within the opacified pulmonary arteries, accounting for motion and contrast timing. No evidence of acute aortic syndrome or aortic aneurysm. Lungs and pleura: No consolidation. No pleural effusions. No pneumothorax. No suspicious pulmonary n odules which require follow up. Mediastinum: Heart size is normal. No pericardial effusion. No large vessel abnormality. No mediastin al adenopathy by size criteria. Large hiatal hernia. Chest wall and lower neck: Thyroid is unremarkable. No axillary or supraclavicular adenopathy by size . Bones: No aggressive osseous abnormality. Upper Abdomen: Unremarkable. IMPRESSION: No central pulmonary embolism. Reviewed by: Vickie Thompson MD on 04/21/2024 1:52 AM PDT Approved by: Vickie Thompson MD on 04/21/2024 1:52 AM PDT Station ID: [id number]
--- NOTE | 2024-04-21 01:56 | CT Report ---
PROCEDURE: Abdomen/Pelvis W INDICATIONS: AMS, N/V, sepsis, unclear source CONTRAST: Omni 300, 100mls TECHNIQUE: After the administration of intravenous contrast, a CT scan of the abdomen and pelvis was performed. Images were recorded and evaluated at appropriate window settings. Reformats: coronal and sagittal. F or radiation dose reduction, the following was used: automated exposure control, adjustment of mA and /or kV according to patient size. COMPARISON: CT abdomen pelvis 11/07/2022. FINDINGS: Image quality: Diagnostic. Lower chest: Unremarkable. Liver: No solid mass. Hepatic steatosis. Gallbladder: Unremarkable. Biliary tree: No intrahepatic or extrahepatic dilation, accounting for age. Spleen: No splenomegaly. Pancreas: No pancreatic ductal dilation. Adrenals: No adrenal nodule. Kidneys and ureters: No hydronephrosis. No renal cystic lesion which requires follow up. No solid mas s. Stomach, bowel and peritoneum: No gastric or small bowel dilation. Colon demonstrates a diffuse thick ened appearance although incompletely distended. Small areas of questionable minimal inflammatory stef nge are present.. No pathologic free fluid. Large hiatal hernia is. Lymph nodes: No central or retroperitoneal adenopathy. Vessels: No infrarenal aortic aneurysm. Patent portal vein. PELVIS Reproductive organs: Unremarkable. Bladder: No abnormal wall thickening, accounting for underdistention. Pelvic lymph nodes: No pelvic adenopathy by size criteria. Bones: No aggressive osseous abnormality. Other: No significant ventral or inguinal hernia. IMPRESSION: Diffuse appearance of colonic thickening. While this could be secondary to incomplete distention, it is noted small areas of inflammatory change are present. Findings are suspicious for developing colit is secondary to infection/formation. Large hiatal hernia. Reviewed by: Vickie Thompson MD on 04/21/2024 1:54 AM PDT Approved by: Vickie Thompson MD on 04/21/2024 1:54 AM PDT Station ID: [id number]
[2024-04-21] MEDS: SODIUM CHLORIDE 0.9% 1,000 ML IV STA (03:22)
--- NOTE | 2024-04-21 04:45 | ED Physician Documentation ---
History of Present Illness - Stated complaint Stated Complaint: AMS - Chief complaint Chief Complaint: Neuro - Additonal information Additional information: 68-year-old female presents to the emergency department with altered mental status. Last known well more than 24 hours ago. Family found her obtunded and confused at home. There were 5 x10 packs of the medication known as tapentadol, 100 mg tabletsNear her. Family does not know anything about this medication, by whom it was prescribed and why. She was given Narcan prior to arrival with significant improvement in mentation however remains persistently confused. She is intermittently alert and orientated to self. Moves all extremities spontaneously. History limited by her altered mentation. 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: Hysterectomy, Oophrectomy - Present Medications Home Medications: Ambulatory Orders Medication Instructions Recorded Confirmed Ibuprofen [Motrin] 800 mg PO Q8H PRN 11/08/22 11/08/22 cephALEXin [Keflex] 500 mg PO Q6H 11/08/22 11/08/22 Pantoprazole [Protonix] 40 mg PO DAILY #30 tablet 11/11/22 - Allergies Allergies/Adverse Reactions: Allergies Allergy/AdvReac Type Severity Reaction Status Date / Time No Known Drug Allergies Allergy Verified 04/20/24 20:49 - Social History Does the pt smoke?: No Smoking Status: Never smoker - POLST Patient has POLST: No POLST Status: Full Code (has advanced directive to be DNR if terminal or vegetative) PD ED PE NORMAL - Vitals Vital signs reviewed: Yes - General General: No acute distress, Well developed/nourished, Other (Patient is alert, sitting up in bed, she demonstrates some psychomotor agitation, fidgeting continuously with her upper and lower extremities.) - HEENT HEENT: Atraumatic, PERRL, EOMI, Ears normal, Moist mucous membranes, Pharynx benign, Dentition benign, Other - Neck Neck: Supple, no meningeal sign, No bony TTP, No JVD, No bruit, C-Spine cleared by NEXUS criteria - Cardiac Cardiac: RRR, No gallop - Respiratory Respiratory: No respiratory distress, Clear bilaterally - Abdomen Abdomen: Normal bowel sounds, Soft, Non tender - Female Female : Deferred - Rectal Rectal: Deferred - Back Back: No CVA TTP - Derm Derm: Normal color - Extremities Extremities: No deformity - 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, No motor deficit, No sensory deficit, Normal speech Results - Vitals Vitals: Vital Signs - 24 hr 04/20/24 04/20/24 04/20/24 20:27 20:32 22:00 Temperature 37.9 C Heart Rate 78 86 84 Respiratory 16 21 20 Rate Blood Pressure 143/85 H 149/77 H 160/102 H O2 Saturation 98 98 99 04/20/24 04/20/24 04/21/24 23:31 23:36 00:17 Temperature Heart Rate 77 73 Respiratory 30 H 24 32 H Rate Blood Pressure 142/78 H O2 Saturation 94 94 04/21/24 04/21/24 01:30 03:27 Temperature 100.5 C H Heart Rate 69 81 Respiratory 22 18 Rate Blood Pressure 128/98 H 153/90 H O2 Saturation 97 97 Oxygen O2 Source Room air - Labs Labs: Laboratory Tests 04/20/24 04/20/24 04/20/24 20:55 20:56 20:56 WBC RBC Hgb Hct MCV MCH MCHC RDW Plt Count MPV Neut # (Auto) Lymph # (Auto) [place] # (Auto) Eos # (Auto) Baso # (Auto) Absolute Nucleated RBC Nucleated RBC % PT 12.4 INR 1.1 VBG pH VBG pCO2 VBG pO2 VBG HCO3 VBG Total CO2 VBG O2 Saturation VBG Base Excess Sodium 142 Potassium 3.8 Chloride 104 Carbon Dioxide 22 Anion Gap 16.0 H BUN 14 Creatinine 0.8 Estimated GFR (MDRD) 72 L Glucose 164 H Lactic Acid Calcium 10.3 Magnesium 1.8 Total Bilirubin 0.8 AST 23 ALT 11 Alkaline Phosphatase 111 Ammonia 26.4 Total Creatine Kinase 71 Troponin I High Sens Total Protein 8.4 Albumin 4.5 Globulin 3.9 Albumin/Globulin Ratio 1.2 Lipase < 10 L Urine Color Urine Clarity Urine pH Ur Specific Jeffrey Urine Protein Urine Glucose (UA) Urine Ketones Urine Occult Blood Urine Nitrite Urine Bilirubin Urine Urobilinogen Ur Leukocyte Esterase Ur Microscopic Review Urine Culture Comments Nasal Adenovirus (PCR) Nasal B. parapertussis DNA (PCR) Nasal Coronavir 229E PCR Nasal Coronavir HKU1 PCR Nasal Coronavir NL63 PCR Nasal Coronavir OC43 PCR Nasal Enterovir/Rhinovir PCR Nasal Influenza B PCR Nasal Influenza A PCR Nasal Parainfluen 1 PCR Nasal Parainfluen 2 PCR Nasal Parainfluen 3 PCR Nasal Parainfluen 4 PCR Nasal RSV (PCR) Nasal B.pertussis DNA PCR Nasal C.pneumoniae (PCR) [place] Human Metapneumo PCR Nasal M.pneumoniae (PCR) Nasal SARS-CoV-2 (PCR) Salicylates < 1.5 Urine Opiates Screen Ur Buprenorphine Scrn Ur Oxycodone Screen Urine Methadone Screen Acetaminophen < 0.1 Ur Barbiturates Screen Ur Tricyclics Screen Ur Phencyclidine Scrn Ur Amphetamine Screen U Methamphetamines Scrn U Benzodiazepines Scrn Urine Cocaine Screen U Cannabinoids Screen Ur Drug Screen Comment Ethyl Alcohol < 10.0 04/20/24 04/20/24 04/20/24 21:15 21:55 21:55 WBC 9.9 RBC 4.72 Hgb 12.0 Hct 39.8 MCV 84.3 MCH 25.4 L MCHC 30.2 L RDW 15.0 Plt Count 352 MPV 9.7 Neut # (Auto) 8.6 H Lymph # (Auto) 1.0 L [place] # (Auto) 0.3 Eos # (Auto) 0.0 Baso # (Auto) 0.0 Absolute Nucleated RBC 0.00 Nucleated RBC % 0.0 PT INR VBG pH VBG pCO2 VBG pO2 VBG HCO3 VBG Total CO2 VBG O2 Saturation VBG Base Excess Sodium Potassium Chloride Carbon Dioxide Anion Gap BUN Creatinine Estimated GFR (MDRD) Glucose Lactic Acid 3.6 H* Calcium Magnesium Total Bilirubin AST ALT Alkaline Phosphatase Ammonia Total Creatine Kinase Troponin I High Sens Total Protein Albumin Globulin Albumin/Globulin Ratio Lipase Urine Color Urine Clarity Urine pH Ur Specific Jeffrey Urine Protein Urine Glucose (UA) Urine Ketones Urine Occult Blood Urine Nitrite Urine Bilirubin Urine Urobilinogen Ur Leukocyte Esterase Ur Microscopic Review Urine Culture Comments Nasal Adenovirus (PCR) NOT DETECTED Nasal B. parapertussis DNA (PCR) NOT DETECTED Nasal Coronavir 229E PCR NOT DETECTED Nasal Coronavir HKU1 PCR NOT DETECTED Nasal Coronavir NL63 PCR NOT DETECTED Nasal Coronavir OC43 PCR NOT DETECTED Nasal Enterovir/Rhinovir PCR NOT DETECTED Nasal Influenza B PCR NOT DETECTED Nasal Influenza A PCR NOT DETECTED Nasal Parainfluen 1 PCR NOT DETECTED Nasal Parainfluen 2 PCR NOT DETECTED Nasal Parainfluen 3 PCR NOT DETECTED Nasal Parainfluen 4 PCR NOT DETECTED Nasal RSV (PCR) NOT DETECTED Nasal B.pertussis DNA PCR NOT DETECTED Nasal C.pneumoniae (PCR) NOT DETECTED [place] Human Metapneumo PCR NOT DETECTED Nasal M.pneumoniae (PCR) NOT DETECTED Nasal SARS-CoV-2 (PCR) NOT DETECTED Salicylates Urine Opiates Screen Ur Buprenorphine Scrn Ur Oxycodone Screen Urine Methadone Screen Acetaminophen Ur Barbiturates Screen Ur Tricyclics Screen Ur Phencyclidine Scrn Ur Amphetamine Screen U Methamphetamines Scrn U Benzodiazepines Scrn Urine Cocaine Screen U Cannabinoids Screen Ur Drug Screen Comment Ethyl Alcohol 04/20/24 04/20/24 04/21/24 21:55 23:20 03:20 WBC RBC Hgb Hct MCV MCH MCHC RDW Plt Count MPV Neut # (Auto) Lymph # (Auto) [place] # (Auto) Eos # (Auto) Baso # (Auto) Absolute Nucleated RBC Nucleated RBC % PT INR VBG pH 7.482 H VBG pCO2 26.8 L VBG pO2 39.8 VBG HCO3 19.6 L VBG Total CO2 20.4 L VBG O2 Saturation 78.3 VBG Base Excess -2.4 L Sodium Potassium Chloride Carbon Dioxide Anion Gap BUN Creatinine Estimated GFR (MDRD) Glucose Lactic Acid 1.6 Calcium Magnesium Total Bilirubin AST ALT Alkaline Phosphatase Ammonia Total Creatine Kinase Troponin I High Sens Total Protein Albumin Globulin Albumin/Globulin Ratio Lipase Urine Color YELLOW Urine Clarity CLEAR Urine pH 7.5 Ur Specific Jeffrey 1.020 Urine Protein NEGATIVE Urine Glucose (UA) 100 H Urine Ketones 15 H Urine Occult Blood TRACE-LYSE Urine Nitrite NEGATIVE Urine Bilirubin NEGATIVE Urine Urobilinogen 0.2 (NORMAL) Ur Leukocyte Esterase NEGATIVE Ur Microscopic Review NOT INDICATED Urine Culture Comments NOT INDICATED Nasal Adenovirus (PCR) Nasal B. parapertussis DNA (PCR) Nasal Coronavir 229E PCR Nasal Coronavir HKU1 PCR Nasal Coronavir NL63 PCR Nasal Coronavir OC43 PCR Nasal Enterovir/Rhinovir PCR Nasal Influenza B PCR Nasal Influenza A PCR Nasal Parainfluen 1 PCR Nasal Parainfluen 2 PCR Nasal Parainfluen 3 PCR Nasal Parainfluen 4 PCR Nasal RSV (PCR) Nasal B.pertussis DNA PCR Nasal C.pneumoniae (PCR) [place] Human Metapneumo PCR Nasal M.pneumoniae (PCR) Nasal SARS-CoV-2 (PCR) Salicylates Urine Opiates Screen NEGATIVE Ur Buprenorphine Scrn NEGATIVE Ur Oxycodone Screen NEGATIVE Urine Methadone Screen NEGATIVE Acetaminophen Ur Barbiturates Screen NEGATIVE Ur Tricyclics Screen NEGATIVE Ur Phencyclidine Scrn NEGATIVE Ur Amphetamine Screen NEGATIVE U Methamphetamines Scrn NEGATIVE U Benzodiazepines Scrn POSITIVE H Urine Cocaine Screen NEGATIVE U Cannabinoids Screen NEGATIVE Ur Drug Screen Comment CUTOFF CONC BELOW: Ethyl Alcohol 04/21/24 04:10 WBC RBC Hgb Hct MCV MCH MCHC RDW Plt Count MPV Neut # (Auto) Lymph # (Auto) [place] # (Auto) Eos # (Auto) Baso # (Auto) Absolute Nucleated RBC Nucleated RBC % PT INR VBG pH VBG pCO2 VBG pO2 VBG HCO3 VBG Total CO2 VBG O2 Saturation VBG Base Excess Sodium Potassium Chloride Carbon Dioxide Anion Gap BUN Creatinine Estimated GFR (MDRD) Glucose Lactic Acid Calcium Magnesium Total Bilirubin AST ALT Alkaline Phosphatase Ammonia Total Creatine Kinase Troponin I High Sens 25.7 H* Total Protein Albumin Globulin Albumin/Globulin Ratio Lipase Urine Color Urine Clarity Urine pH Ur Specific Jeffrey Urine Protein Urine Glucose (UA) Urine Ketones Urine Occult Blood Urine Nitrite Urine Bilirubin Urine Urobilinogen Ur Leukocyte Esterase Ur Microscopic Review Urine Culture Comments Nasal Adenovirus (PCR) Nasal B. parapertussis DNA (PCR) Nasal Coronavir 229E PCR Nasal Coronavir HKU1 PCR Nasal Coronavir NL63 PCR Nasal Coronavir OC43 PCR Nasal Enterovir/Rhinovir PCR Nasal Influenza B PCR Nasal Influenza A PCR Nasal Parainfluen 1 PCR Nasal Parainfluen 2 PCR Nasal Parainfluen 3 PCR Nasal Parainfluen 4 PCR Nasal RSV (PCR) Nasal B.pertussis DNA PCR Nasal C.pneumoniae (PCR) [place] Human Metapneumo PCR Nasal M.pneumoniae (PCR) Nasal SARS-CoV-2 (PCR) Salicylates Urine Opiates Screen Ur Buprenorphine Scrn Ur Oxycodone Screen Urine Methadone Screen Acetaminophen Ur Barbiturates Screen Ur Tricyclics Screen Ur Phencyclidine Scrn Ur Amphetamine Screen U Methamphetamines Scrn U Benzodiazepines Scrn Urine Cocaine Screen U Cannabinoids Screen Ur Drug Screen Comment Ethyl Alcohol PD Medical Decision Making - ED course Complexity details: reviewed old records, reviewed results, re-evaluated patient, considered differential, d/w family ED course: 68-year-old female comes to the emergency department with altered mental status. She is found down by family, last known well greater than 1 day ago. She received Narcan prior to arrival with improvement in her mentation. She arrives alert and orientated x 1, demonstrating psychomotor agitation, diaphoresis and piloerection consistent with mild to moderate opiate withdrawal. She is initially given Ativan as well as droperidol for chemical calming as she is too agitated to allow for accurate EKG and obtaining further blood work and imaging. Notably she moves all extremities spontaneously. She has no nuchal rigidity. She has clear aeration in all lung snyder and is maintaining oxygen saturations on room air. Her abdominal exam is benign. She does have frequent episodes nausea vomiting and is given doses Reglan to help with this. CT of the head is benign. CT of the chest abdomen pelvis is similarly benign. Her lab work is all very reassuring. Her initial EKG had a minimal QT prolongation at [address]-T wave abnormalities in the setting of moderate motion artifact. Poison control was contacted concerning the 5 blister packs ofTapentadol. They recommend monitoring until patient back at baseline mentation. The remainder of her labs are all very reassuring. No leukocytosis. She does have mild fever here in the emergency department however no nuchal rigidity is appreciated though she remains confused her mentation appears to be clearing slowly here in the emergency department. On repeat evaluation at approximately 0330 hrs. she seemed able to answer yes/no questions, denies any pain, and was able to follow some commands. I do not see any indication for lumbar puncture at this time. She was given a single dose of Rocephin empirically as part of her early workup. Her care is discussed with the hospitalist service who graciously agreed to hospitalize for further evaluation and treatment. Departure - Departure Disposition: 67 [facility] DC/Xfer Clinical Impression: Encephalopathy, Fever Opiate overdose Qualifiers: Encounter type: initial encounter Injury intent: undetermined intent Qualified Code(s): T40.604A - Poisoning by unspecified narcotics, undetermined, initial encounter Forms: PCP List
[2024-04-21] MEDS ORDERED: SODIUM CHLORIDE FLUSH 0.9% 10 ML SYRINGE IVP PRN (05:02)
[2024-04-21] MEDS ORDERED: ACETAMINOPHEN 325 MG TABLET PO PRN (05:02)
--- NOTE | 2024-04-21 05:12 | HISTORY & PHYSICAL EXAMINATION ---
Chief Complaint - Chief Complaint Chief Complaint: syncope due to opioid overdose History of Present Illness - Admitted From Admitted From:: ED - History Obtained From Records Reviewed: EMR History obtained from: ED staff and RN Exam Limitations: Tele medicine - History of Present Illness HPI Comment/Other: 68YOF who was found down at home with opioids around her. It seems patient had overdose on opioid Tapentadol. Patient had a blister pack and it was not clear how much did she take. Patient reportedly found by . EMS was called and patient was given Narcan which had a positive effect in the field. Patient was brought into the ED where workup has been non insightful. Oddly urine drug screen was not positive for opioids. Patient's mentation has slowly improved while in the ED. Non focal exam. She is now following command however her response to questions are still not baseline. ED subsequently reached out to Poison Control who recommended observing still baseline. ED staff then reached out to Hospital Medicine for assistance with medical management. 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 quit years ago. She was about 2013. alcohol abuse, quit 2013,. lives with son. Worked until 2005 when she and moved here. Was in [place], Living Situation: With family Social History Notes: Mom still alive but dementia in [place]. Dad of heart failure. Siblings: younger brother (halthy_ and older sister (stroke). Son is healthy - Substance History Use: Uses substance without health or social issues: NONE - POLST Patient has POLST: No POLST Status: Full Code (has advanced directive to be DNR if terminal or vegetative) Meds/Allgy - Home Medications Home Medications: Ambulatory Orders Medication Instructions Recorded Confirmed Ibuprofen [Motrin] 800 mg PO Q8H PRN 11/08/22 11/08/22 cephALEXin [Keflex] 500 mg PO Q6H 11/08/22 11/08/22 Pantoprazole [Protonix] 40 mg PO DAILY #30 tablet 11/11/22 - Allergies Allergies/Adverse Reactions: Allergies Allergy/AdvReac Type Severity Reaction Status Date / Time No Known Drug Allergies Allergy Verified 04/20/24 20:49 Review of Systems - Other Findings Other Findings: limited 2/2 encephalopathy Exam - Vital Signs Reviewed Vital Signs: Yes Vital Signs: Vital Signs x48h Temp Pulse Resp BP Pulse Ox 04/21/24 05:06 75 24 162/82 H 99 04/21/24 03:27 100.5 C H 81 18 153/90 H 97 04/21/24 01:30 69 22 128/98 H 97 04/21/24 00:17 73 32 H 94 04/20/24 23:36 24 04/20/24 23:31 77 30 H 142/78 H 94 04/20/24 22:00 84 20 160/102 H 99 - Physical Exam General Appearance: positive: No acute distress, Alert Eyes Bilateral: positive: Normal inspection ENT: positive: ENT inspection nml Neck: positive: Nml inspection Skin: positive: Color nml Extremities: positive: Full ROM, Nml appearance Neurologic/Psychiatric: positive: CN's nml (2-12), Motor nml. negative: Oriented x3 Conclusion/Plan - Problem List (1) Encephalopathy Conclusion/Plan: currently not at baseline but improving. hx and pattern of improvement in the ED supportive of encephalopathy from tapentadol overdose. vital stable. on room air. Per ED staff d/w Poison Control, no further intervention needed and simply monitor. will obs monitor patient. fall and aspiration precaution. monitor for possible occult infection. Qualifiers: Encephalopathy type: toxic Toxic encephalopathy cause: unspecified toxin Qualified Code(s): G92.9 - Unspecified toxic encephalopathy (2) Opioid abuse Conclusion/Plan: noted abuse of tapentadol. stable vitals. monitor as noted above. (3) GERD (gastroesophageal reflux disease) Conclusion/Plan: noted hx of GERD c large hiatal hernia on imaging. PPI equivalent. Qualifiers: Esophagitis presence: without esophagitis Qualified Code(s): K21.9 - Gastro-esophageal reflux disease without esophagitis - Lab Results Lab results reviewed: Yes Fish Bones: 04/20/24 21:55 04/20/24 20:56 - Diagnostic Imaging Results Diagnostic Imaging Results: positive: Final report reviewed Diagnostic Imaging Results Comments: large hiatal hernia. otherwise CT head, CTA chest. CT abd/pelvis were non insightful Core Measures - Anticipated LOS I expect patient to be DC'd or transferred within 96 hours.: Yes - Issues Hospital Issues and Management Plan: The patient consented to receive this telemedicine service, which I performed via live two-way audiovisual equipment. The patient is at ([facility]) and I am physically in Health system. A nurse assisted me in the visit. Full code SCD Observation Devaughn Ruiz DO Internal Medicine [employer] Tele Branch Coordinator - DVT/VTE - Prophylaxis VTE/DVT Device ordered at admit?: Yes Telemedicine Consult Details - Provider Location & Consult Time Telemedicine consultation conducted via videoconferencing?: Yes List names and roles of persons who participated in consult:: ED staff and RN and patient Telemedicine provider location:: [facility] Time Telemedicine consult began:: 04:50 Time Telemedicine consult completed:: 05:45
[2024-04-21 07:19] LABS: BASOPHILS % (AUTO) 0.1 %; HCT - HEMATOCRIT 34.7 % (37.0-47.0); LYMPHOCYTES % (AUTO) 14.2 %; MEAN CORPUSCULAR HEMOGLOBIN 25.9 pg (27.0-31.0); MEAN CORPUSCULAR HGB CONC 31.7 g/dL (32.0-36.0); MEAN CORPUSCULAR VOLUME 81.6 fL (81.0-99.0); MEAN PLATELET VOLUME 9.6 fL (7.9-10.8); MONOCYTES # (AUTO) 0.8 10^3/uL (0.0-1.0); MONOCYTES % (AUTO) 5.5 %; NEUTROPHILS # (AUTO) 11.4 10^3/uL (1.5-6.6); NEUTROPHILS % (AUTO) 79.8 %; PLT - PLATELET COUNT 371 10^3/uL (130-450); RED BLOOD COUNT 4.25 10^6/uL (4.20-5.40); RED CELL DISTRIBUTION WIDTH 15.5 % (12.0-15.0); WHITE BLOOD COUNT 14.3 x10^3/uL (4.8-10.8)
[2024-04-21 07:23] LABS: ALBUMIN/GLOBULIN RATIO 1.2 (1.0-2.2); ALKALINE PHOSPHATASE 92 IU/L (42-121); ALT ALANINE AMINOTRANSFERASE 10 IU/L (10-60); AST ASPARTATE AMINOTRANSFERASE 21 IU/L (10-42); BILIRUBIN,TOTAL 0.6 mg/dL (0.2-1.0); BUN - BLOOD UREA NITROGEN 12 mg/dL (6-20); CARBON DIOXIDE - CO2 22 mmol/L (21-32); CHLORIDE 107 mmol/L (101-111); CREATININE 0.8 mg/dL (0.6-1.3); GFR - MDRD 72 (>89); GLUCOSE 137 mg/dL (74-104); MAGNESIUM 1.4 mg/dL (1.7-2.3); PHOSPHORUS 1.4 mg/dL (2.5-5.0); POTASSIUM 2.8 mmol/L (3.5-4.5); SODIUM 139 mmol/L (135-145); TOTAL PROTEIN 7.3 g/dL (6.4-8.9)
[2024-04-21 07:25] LABS: PROCALCITONIN < 0.05 ng/mL (<0.5)
[2024-04-21 07:28] LABS: TROPONIN I HIGH SENSITIVITY 28.8 ng/L (2.3-14.8)
[2024-04-21 07:34] LABS: THYROID STIMULATING HORMONE 1.62 uIU/mL (0.34-5.60)
[2024-04-21] MEDS ORDERED: POTASSIUM CHLORIDE INJ 40 MEQ in SODIUM CHLORIDE 0.9% 500 ML IV ONE (07:34)
[2024-04-21] MEDS: SODIUM CHLORIDE 0.9% 1,000 ML IV SCH (08:29)
[2024-04-21] MEDS: MAGNESIUM SULFATE 2 GRAM 2 GM/50 ML BAG IV ONE (08:29)
[2024-04-21] MEDS: POTASSIUM CHLOR 10 MEQ/100 ML 10 MEQ/100 ML BAG IV SCH (08:37)
[2024-04-21] MEDS: SODIUM CHLORIDE FLUSH 0.9% 10 ML SYRINGE IVP SCH (08:38)
--- NOTE | 2024-04-21 11:24 | PHARMACY PROGRESS NOTE ---
- Best Possible Medication History Admit Date and Time: 04/21/24 0504 Processed by: Pharmacy Medications reviewed in ED?: No Patient Interview: Pt unable to participate Secondary Source(s): Other family member (Medication Reconciliation completed v ia telephone call with patient's son by Process Mechanic Carmina) As the person ultimately responsible for medication therapy, providers are able to order a medication from an existing home medication list in [facility] via the "Reconcile Routine" prior to Confirmation of that medication by field support rep. Such practice is discouraged except when the physician, in their clinical judgment, deems that a medical need exists for a medication without regard to previous use.
[2024-04-21] MEDS: PANTOPRAZOLE 40 MG TABLET PO SCH (11:37)
--- NOTE | 2024-04-21 12:05 | PROVIDER PROGRESS NOTE ---
Assessment/Plan - Problem List (1) Encephalopathy Qualifiers: Encephalopathy type: toxic Toxic encephalopathy cause: unspecified toxin Qualified Code(s): G92.9 - Unspecified toxic encephalopathy Assessment/Plan: Most likely secondary to drug overdose with benzo's and /or Nucynta. Have spoken to son over the phone and patient had similar presentation last year (11/29). Does not have a prescription for either and UDS + benzo but negative for opiates. Continues to be somnolent and not able to follow commands but ple asant. Oriented to self. On admit CT head-negative, CTA chest-negative and CT abdomen and pelvis-concerning for developing colitis. Hold antibiotics for now as patient is afebrile and WBC slightly elevated. (2) Opioid abuse Assessment/Plan: According to son patient is taking tapentadol or Nucynta. Did received narcan with improvement in alertness however need ativan afterwards due to agitation. UDS negative for opiates. Have discussed with son the need to fu with PCP vs psychiatry. Continue to hold all opiates, benzo's while inpatient. (3) Leukocytosis Assessment/Plan: Possibly due to developing colitis and diarrhea. Doubtful C diff as WBC not significantly elevated and only 4 large episodes. Will continue to trend WBC curve and hold antibiotics for now. (4) Elevated troponin level not due to acute coronary syndrome Assessment/Plan: Troponin elevation of 25.7 on admit to 32.6. Patient is unreliable as historian but does not appear to have chest pains. EKG not consistent with ACS. Most likely due to demand ischemia. Continue to trend troponin, check TTE and fu with PCP or cardiology as outpatient for possible stress test. - Current Meds Current Meds: Current Medications Generic Name Dose Route Start Last Admin Trade Name Freq PRN Reason Stop Dose Admin Sodium Chloride 1,000 mls @ 100 mls/hr 04/21/24 08:00 04/21/24 08:29 Normal Saline 0.9% IV 100 mls/hr .Q10H JAZMIN Administration Pantoprazole Sodium 40 mg 04/21/24 09:00 04/21/24 11:37 Pantoprazole 40 Mg Tablet PO Not Given DAILY JAZMIN Sodium Chloride 10 ml 04/21/24 09:00 04/21/24 08:38 Sodium Chloride Flush 0.9% 10 Ml Syringe IVP 10 ml 0100,0900,1700 JAZMIN Administration - Lab Result Fish Bone Diagrams: 04/21/24 06:50 04/21/24 06:50 - EKG Results EKG Interpreted Independently: Yes EKG Findings: NSR, borderline prolonged QT interval - Additional Planning My Orders: My Active Orders 04/21/24 07:31 Telemetry (24 Hour) [RC] Q4HR 04/21/24 08:00 Sodium Chloride 0.9% [Normal Saline 0.9%] 1,000 ml IV 100 mls/hr 04/21/24 10:56 Echo Transthoracic Complete [ECHO] Routine 04/21/24 17:00 TROPONIN I HIGH SENSITIVITY [CHEM] Routine Subjective - Subjective Patient Reports: Resting Comfortably Nursing Reports: Diarrhea Objective Vital Signs: Vital Signs - 24 hr 04/20/24 04/20/24 04/20/24 20:27 20:32 22:00 Temperature 37.9 C Heart Rate 78 86 84 Heart Rate [ Brachial] Respiratory 16 21 20 Rate Blood Pressure 143/85 H 149/77 H 160/102 H Blood Pressure [Right Brachial artery] O2 Saturation 98 98 99 04/20/24 04/20/24 04/21/24 23:31 23:36 00:17 Temperature Heart Rate 77 73 Heart Rate [ Brachial] Respiratory 30 H 24 32 H Rate Blood Pressure 142/78 H Blood Pressure [Right Brachial artery] O2 Saturation 94 94 04/21/24 04/21/24 04/21/24 01:30 03:27 05:06 Temperature 38.1 C H Heart Rate 69 81 75 Heart Rate [ Brachial] Respiratory 22 18 24 Rate Blood Pressure 128/98 H 153/90 H 162/82 H Blood Pressure [Right Brachial artery] O2 Saturation 97 97 99 04/21/24 04/21/24 06:36 08:00 Temperature 37.2 C 37.6 C Heart Rate Heart Rate [ 76 82 Brachial] Respiratory 16 18 Rate Blood Pressure Blood Pressure 160/84 H 165/92 H [Right Brachial artery] O2 Saturation 96 93 Oxygen O2 Source Room air I&O (Last 24 Hrs): Intake and Output Totals x24h 04/19/24 04/20/24 04/21/24 23:59 23:59 23:59 Intake Total 1000 100 Balance 1000 100 General: Cooperative, No acute distress HEENT: Atraumatic Neck: Supple Lymphatic: no adenopathy Neuro: Alert, Disoriented, Non Focal Cardiovascular: Regular rate Respiratory: Chest non-tender Abdomen: Normal bowel sounds Skin: No breakdown - Results Results: Laboratory Results WBC 14.3 x10^3/uL (4.8-10.8) H 04/21/24 06:50 RBC 4.25 10^6/uL (4.20-5.40) 04/21/24 06:50 Hgb 11.0 g/dL (12.0-16.0) L 04/21/24 06:50 Hct 34.7 % (37.0-47.0) L 04/21/24 06:50 MCV 81.6 fL (81.0-99.0) 04/21/24 06:50 MCH 25.9 pg (27.0-31.0) L 04/21/24 06:50 MCHC 31.7 g/dL (32.0-36.0) L 04/21/24 06:50 RDW 15.5 % (12.0-15.0) H 04/21/24 06:50 Plt Count 371 10^3/uL (130-450) 04/21/24 06:50 MPV 9.6 fL (7.9-10.8) 04/21/24 06:50 Neut # (Auto) 11.4 10^3/uL (1.5-6.6) H 04/21/24 06:50 Lymph # (Auto) 2.0 10^3/uL (1.5-3.5) 04/21/24 06:50 [place] # (Auto) 0.8 10^3/uL (0.0-1.0) 04/21/24 06:50 Eos # (Auto) 0.0 10^3/uL (0.0-0.7) 04/21/24 06:50 Baso # (Auto) 0.0 10^3/uL (0.0-0.1) 04/21/24 06:50 Absolute Nucleated RBC 0.00 x10^3/uL 04/21/24 06:50 Nucleated RBC % 0.0 /100WBC 04/21/24 06:50 PT 12.4 secs (9.9-12.6) 04/20/24 20:56 INR 1.1 (0.8-1.2) 04/20/24 20:56 VBG pH 7.482 (7.31-7.41) H 04/20/24 21:55 VBG pCO2 26.8 mmHg (41-51) L 04/20/24 21:55 VBG pO2 39.8 mmHg (25-47) 04/20/24 21:55 VBG HCO3 19.6 mmol/L (23-28) L 04/20/24 21:55 VBG Total CO2 20.4 mmol/L (24-29) L 04/20/24 21:55 VBG O2 Saturation 78.3 % (60-80) 04/20/24 21:55 VBG Base Excess -2.4 mmol/L (-2 - +2) L 04/20/24 21:55 Sodium 139 mmol/L (135-145) 04/21/24 06:50 Potassium 2.8 mmol/L (3.5-4.5) L 04/21/24 06:50 Chloride 107 mmol/L (101-111) 04/21/24 06:50 Carbon Dioxide 22 mmol/L (21-32) 04/21/24 06:50 Anion Gap 10.0 (6-13) 04/21/24 06:50 BUN 12 mg/dL (6-20) 04/21/24 06:50 Creatinine 0.8 mg/dL (0.6-1.3) 04/21/24 06:50 Estimated GFR (MDRD) 72 (>89) L 04/21/24 06:50 Glucose 137 mg/dL (74-104) H 04/21/24 06:50 Lactic Acid 1.6 mmol/L (0.5-2.2) 04/21/24 03:20 Calcium 9.0 mg/dL (8.5-10.3) 04/21/24 06:50 Phosphorus 1.4 mg/dL (2.5-5.0) L 04/21/24 06:50 Magnesium 1.4 mg/dL (1.7-2.3) L 04/21/24 06:50 Total Bilirubin 0.6 mg/dL (0.2-1.0) 04/21/24 06:50 AST 21 IU/L (10-42) 04/21/24 06:50 ALT 10 IU/L (10-60) 04/21/24 06:50 Alkaline Phosphatase 92 IU/L (42-121) 04/21/24 06:50 Ammonia 26.4 umol/L (18-72) 04/20/24 20:55 Total Creatine Kinase 71 IU/L (30-223) 04/20/24 20:56 Troponin I High Sens 32.6 ng/L (2.3-14.8) H* 04/21/24 10:24 B-Natriuretic Peptide 381 pg/mL (5-100) H 04/21/24 06:50 Total Protein 7.3 g/dL (6.4-8.9) 04/21/24 06:50 Albumin 4.0 g/dL (3.2-5.5) 04/21/24 06:50 Globulin 3.3 g/dL (2.1-4.2) 04/21/24 06:50 Albumin/Globulin Ratio 1.2 (1.0-2.2) 04/21/24 06:50 Lipase < 10 U/L (11-82) L 04/20/24 20:56 Procalcitonin Immunoas < 0.05 ng/mL (<0.5) 04/21/24 06:50 TSH 1.62 uIU/mL (0.34-5.60) 04/21/24 06:50 Urine Color YELLOW 04/20/24 23:20 Urine Clarity CLEAR (CLEAR) 04/20/24 23:20 Urine pH 7.5 PH (5.0-7.5) 04/20/24 23:20 Ur Specific [place] 1.020 (1.002-1.030) 04/20/24 23:20 Urine Protein NEGATIVE mg/dL (NEGATIVE) 04/20/24 23:20 Urine Glucose (UA) 100 mg/dL (NEGATIVE) H 04/20/24 23:20 Urine Ketones 15 mg/dL (NEGATIVE) H 04/20/24 23:20 Urine Occult Blood TRACE-LYSE (NEGATIVE) 04/20/24 23:20 Urine Nitrite NEGATIVE (NEGATIVE) 04/20/24 23:20 Urine Bilirubin NEGATIVE (NEGATIVE) 04/20/24 23:20 Urine Urobilinogen 0.2 (NORMAL) E.U./dL (NORMAL) 04/20/24 23:20 Ur Leukocyte Esterase NEGATIVE (NEGATIVE) 04/20/24 23:20 Ur Microscopic Review NOT INDICATED 04/20/24 23:20 Urine Culture Comments NOT INDICATED 04/20/24 23:20 Nasal Adenovirus (PCR) NOT DETECTED 04/20/24 21:15 Nasal B. parapertussis DNA (PCR) NOT DETECTED 04/20/24 21:15 Nasal Coronavir 229E PCR NOT DETECTED 04/20/24 21:15 Nasal Coronavir HKU1 PCR NOT DETECTED 04/20/24 21:15 Nasal Coronavir NL63 PCR NOT DETECTED 04/20/24 21:15 Nasal Coronavir OC43 PCR NOT DETECTED 04/20/24 21:15 Nasal Enterovir/Rhinovir PCR NOT DETECTED 04/20/24 21:15 Nasal Influenza B PCR NOT DETECTED 04/20/24 21:15 Nasal Influenza A PCR NOT DETECTED 04/20/24 21:15 Nasal Parainfluen 1 PCR NOT DETECTED 04/20/24 21:15 Nasal Parainfluen 2 PCR NOT DETECTED 04/20/24 21:15 Nasal Parainfluen 3 PCR NOT DETECTED 04/20/24 21:15 Nasal Parainfluen 4 PCR NOT DETECTED 04/20/24 21:15 Nasal RSV (PCR) NOT DETECTED 04/20/24 21:15 Nasal B.pertussis DNA PCR NOT DETECTED 04/20/24 21:15 Nasal C.pneumoniae (PCR) NOT DETECTED 04/20/24 21:15 [place] Human Metapneumo PCR NOT DETECTED 04/20/24 21:15 Nasal M.pneumoniae (PCR) NOT DETECTED 04/20/24 21:15 Nasal SARS-CoV-2 (PCR) NOT DETECTED 04/20/24 21:15 Salicylates < 1.5 mg/dL 04/20/24 20:56 Urine Opiates Screen NEGATIVE (NEGATIVE) 04/20/24 23:20 Ur Buprenorphine Scrn NEGATIVE (NEGATIVE) 04/20/24 23:20 Ur Oxycodone Screen NEGATIVE (NEGATIVE) 04/20/24 23:20 Urine Methadone Screen NEGATIVE (NEGATIVE) 04/20/24 23:20 Acetaminophen < 0.1 ug/mL 04/20/24 20:56 Ur Barbiturates Screen NEGATIVE (NEGATIVE) 04/20/24 23:20 Ur Tricyclics Screen NEGATIVE (NEGATIVE) 04/20/24 23:20 Ur Phencyclidine Scrn NEGATIVE (NEGATIVE) 04/20/24 23:20 Ur Amphetamine Screen NEGATIVE (NEGATIVE) 04/20/24 23:20 U Methamphetamines Scrn NEGATIVE (NEGATIVE) 04/20/24 23:20 U Benzodiazepines Scrn POSITIVE (NEGATIVE) H 04/20/24 23:20 Urine Cocaine Screen NEGATIVE (NEGATIVE) 04/20/24 23:20 U Cannabinoids Screen NEGATIVE (NEGATIVE) 04/20/24 23:20 Ur Drug Screen Comment CUTOFF CONC BELOW: 04/20/24 23:20 Ethyl Alcohol < 10.0 mg/dL 04/20/24 20:56 ABX Reporting Has patient been on IV antibiotics over the past 48 hours?: No
[2024-04-21 17:42] LABS: CALCIUM 9.1 mg/dL (8.5-10.3); CREATININE 0.7 mg/dL (0.6-1.3)
[2024-04-21 18:20] LABS: TROPONIN I HIGH SENSITIVITY 27.9 ng/L (2.3-14.8)
[2024-04-22 07:11] LABS: HSV 1 IGG TYPE SPEC <0.91 index (0.00-0.90); HSV 2 IGG TYPE SPEC <0.91 index (0.00-0.90)
--- NOTE | 2024-04-22 09:05 | PROVIDER PROGRESS NOTE ---
Assessment/Plan - Problem List (1) Encephalopathy Qualifiers: Encephalopathy type: toxic Toxic encephalopathy cause: unspecified toxin Qualified Code(s): G92.9 - Unspecified toxic encephalopathy Assessment/Plan: Encephalopathy type: toxic Toxic encephalopathy cause: unspecified toxin Qualified Code(s): G92.9 - Unspecified toxic encephalopathy Assessment/Plan: Most likely secondary to drug overdose with benzo's and /or Nucynta. Have spoken to son over the phone and patient had similar presentation last year (11/29). Does not have a prescription for either and UDS + benzo but negative for opiates. Continues to be somnolent and not able to follow commands but pleasant. Oriented to self. On admit CT head-negative, CTA chest-negative and CT abdomen and pelvis-concerning for developing colitis. Hold antibiotics for now as patient is afebrile and WBC slightly elevated. (2) Opioid abuse Assessment/Plan: According to son patient is taking tapentadol or Nucynta. Did received narcan with improvement in alertness however need ativan afterwards due to agitation. UDS negative for opiates. Have discussed with son the need to fu with PCP vs psychiatry. Continue to hold all opiates, benzo's while inpatient. (3) Leukocytosis Assessment/Plan: Possibly due to developing colitis and diarrhea. Doubtful C diff as WBC not significantly elevated and only 4 large episodes. Will continue to trend WBC curve and hold antibiotics for now. (4) Elevated troponin level not due to acute coronary syndrome Assessment/Plan: Troponin elevation of 25.7 on admit to 32.6. Patient is unreliable as historian but does not appear to have chest pains. EKG not consistent with ACS. Most likely due to demand ischemia. Continue to trend troponin, check TTE and fu with PCP or cardiology as outpatient for possible stress test. - Current Meds Current Meds: Current Medications Generic Name Dose Route Start Last Admin Trade Name Freq PRN Reason Stop Dose Admin Sodium Chloride 1,000 mls @ 100 mls/hr 04/21/24 08:00 04/22/24 04:16 Normal Saline 0.9% IV 100 mls/hr .Q10H JAZMIN Administration Pantoprazole Sodium 40 mg 04/21/24 09:00 04/21/24 11:37 Pantoprazole 40 Mg Tablet PO Not Given DAILY JAZMIN Sodium Chloride 10 ml 04/21/24 09:00 04/22/24 01:51 Sodium Chloride Flush 0.9% 10 Ml Syringe IVP 10 ml 0100,0900,1700 [facility] Administration - Lab Result Fish Bone Diagrams: 04/21/24 06:50 04/21/24 17:20 - Additional Planning My Orders: My Active Orders 04/23/24 05:00 BMP - BASIC METABOLIC PANEL [CHEM] Routine Objective Vital Signs: Vital Signs - 24 hr 04/21/24 04/21/24 04/22/24 15:48 20:16 01:00 Temperature 37.1 C 36.7 C 37.0 C Heart Rate [ 75 66 92 Brachial] Respiratory 20 24 16 Rate Blood Pressure 170/95 H 139/85 H 160/99 H [Right Brachial artery] O2 Saturation 97 96 98 04/22/24 04:43 Temperature 36.7 C Heart Rate [ 60 Brachial] Respiratory 18 Rate Blood Pressure 158/89 H [Right Brachial artery] O2 Saturation 98 Oxygen O2 Source Room air I&O (Last 24 Hrs): Intake and Output Totals x24h 04/20/24 04/21/24 04/22/24 23:59 23:59 23:59 Intake Total 1000 1193.333 985 Balance 1000 1193.333 985 - Results Results: Laboratory Results WBC 14.3 x10^3/uL (4.8-10.8) H 04/21/24 06:50 RBC 4.25 10^6/uL (4.20-5.40) 04/21/24 06:50 Hgb 11.0 g/dL (12.0-16.0) L 04/21/24 06:50 Hct 34.7 % (37.0-47.0) L 04/21/24 06:50 MCV 81.6 fL (81.0-99.0) 04/21/24 06:50 MCH 25.9 pg (27.0-31.0) L 04/21/24 06:50 MCHC 31.7 g/dL (32.0-36.0) L 04/21/24 06:50 RDW 15.5 % (12.0-15.0) H 04/21/24 06:50 Plt Count 371 10^3/uL (130-450) 04/21/24 06:50 MPV 9.6 fL (7.9-10.8) 04/21/24 06:50 Neut # (Auto) 11.4 10^3/uL (1.5-6.6) H 04/21/24 06:50 Lymph # (Auto) 2.0 10^3/uL (1.5-3.5) 04/21/24 06:50 [place] # (Auto) 0.8 10^3/uL (0.0-1.0) 04/21/24 06:50 Eos # (Auto) 0.0 10^3/uL (0.0-0.7) 04/21/24 06:50 Baso # (Auto) 0.0 10^3/uL (0.0-0.1) 04/21/24 06:50 Absolute Nucleated RBC 0.00 x10^3/uL 04/21/24 06:50 Nucleated RBC % 0.0 /100WBC 04/21/24 06:50 PT 12.4 secs (9.9-12.6) 04/20/24 20:56 INR 1.1 (0.8-1.2) 04/20/24 20:56 VBG pH 7.482 (7.31-7.41) H 04/20/24 21:55 VBG pCO2 26.8 mmHg (41-51) L 04/20/24 21:55 VBG pO2 39.8 mmHg (25-47) 04/20/24 21:55 VBG HCO3 19.6 mmol/L (23-28) L 04/20/24 21:55 VBG Total CO2 20.4 mmol/L (24-29) L 04/20/24 21:55 VBG O2 Saturation 78.3 % (60-80) 04/20/24 21:55 VBG Base Excess -2.4 mmol/L (-2 - +2) L 04/20/24 21:55 Sodium 140 mmol/L (135-145) 04/21/24 17:20 Potassium 3.0 mmol/L (3.5-4.5) L 04/21/24 17:20 Chloride 109 mmol/L (101-111) 04/21/24 17:20 Carbon Dioxide 22 mmol/L (21-32) 04/21/24 17:20 Anion Gap 9.0 (6-13) 04/21/24 17:20 BUN 10 mg/dL (6-20) 04/21/24 17:20 Creatinine 0.7 mg/dL (0.6-1.3) 04/21/24 17:20 Estimated GFR (MDRD) 83 (>89) L 04/21/24 17:20 Glucose 133 mg/dL (74-104) H 04/21/24 17:20 Lactic Acid 1.6 mmol/L (0.5-2.2) 04/21/24 03:20 Calcium 9.1 mg/dL (8.5-10.3) 04/21/24 17:20 Phosphorus 1.4 mg/dL (2.5-5.0) L 04/21/24 06:50 Magnesium 1.4 mg/dL (1.7-2.3) L 04/21/24 06:50 Total Bilirubin 0.6 mg/dL (0.2-1.0) 04/21/24 06:50 AST 21 IU/L (10-42) 04/21/24 06:50 ALT 10 IU/L (10-60) 04/21/24 06:50 Alkaline Phosphatase 92 IU/L (42-121) 04/21/24 06:50 Ammonia 26.4 umol/L (18-72) 04/20/24 20:55 Total Creatine Kinase 71 IU/L (30-223) 04/20/24 20:56 Troponin I High Sens 27.9 ng/L (2.3-14.8) H* 04/21/24 17:20 B-Natriuretic Peptide 381 pg/mL (5-100) H 04/21/24 06:50 Total Protein 7.3 g/dL (6.4-8.9) 04/21/24 06:50 Albumin 4.0 g/dL (3.2-5.5) 04/21/24 06:50 Globulin 3.3 g/dL (2.1-4.2) 04/21/24 06:50 Albumin/Globulin Ratio 1.2 (1.0-2.2) 04/21/24 06:50 Lipase < 10 U/L (11-82) L 04/20/24 20:56 Procalcitonin Immunoas < 0.05 ng/mL (<0.5) 04/21/24 06:50 TSH 1.62 uIU/mL (0.34-5.60) 04/21/24 06:50 Urine Color YELLOW 04/20/24 23:20 Urine Clarity CLEAR (CLEAR) 04/20/24 23:20 Urine pH 7.5 PH (5.0-7.5) 04/20/24 23:20 Ur Specific [place] 1.020 (1.002-1.030) 04/20/24 23:20 Urine Protein NEGATIVE mg/dL (NEGATIVE) 04/20/24 23:20 Urine Glucose (UA) 100 mg/dL (NEGATIVE) H 04/20/24 23:20 Urine Ketones 15 mg/dL (NEGATIVE) H 04/20/24 23:20 Urine Occult Blood TRACE-LYSE (NEGATIVE) 04/20/24 23:20 Urine Nitrite NEGATIVE (NEGATIVE) 04/20/24 23:20 Urine Bilirubin NEGATIVE (NEGATIVE) 04/20/24 23:20 Urine Urobilinogen 0.2 (NORMAL) E.U./dL (NORMAL) 04/20/24 23:20 Ur Leukocyte Esterase NEGATIVE (NEGATIVE) 04/20/24 23:20 Ur Microscopic Review NOT INDICATED 04/20/24 23:20 Urine Culture Comments NOT INDICATED 04/20/24 23:20 Nasal Adenovirus (PCR) NOT DETECTED 04/20/24 21:15 Nasal B. parapertussis DNA (PCR) NOT DETECTED 04/20/24 21:15 Nasal Coronavir 229E PCR NOT DETECTED 04/20/24 21:15 Nasal Coronavir HKU1 PCR NOT DETECTED 04/20/24 21:15 Nasal Coronavir NL63 PCR NOT DETECTED 04/20/24 21:15 Nasal Coronavir OC43 PCR NOT DETECTED 04/20/24 21:15 Nasal Enterovir/Rhinovir PCR NOT DETECTED 04/20/24 21:15 Nasal Influenza B PCR NOT DETECTED 04/20/24 21:15 Nasal Influenza A PCR NOT DETECTED 04/20/24 21:15 Nasal Parainfluen 1 PCR NOT DETECTED 04/20/24 21:15 Nasal Parainfluen 2 PCR NOT DETECTED 04/20/24 21:15 Nasal Parainfluen 3 PCR NOT DETECTED 04/20/24 21:15 Nasal Parainfluen 4 PCR NOT DETECTED 04/20/24 21:15 Nasal RSV (PCR) NOT DETECTED 04/20/24 21:15 Nasal B.pertussis DNA PCR NOT DETECTED 04/20/24 21:15 Nasal C.pneumoniae (PCR) NOT DETECTED 04/20/24 21:15 [place] Human Metapneumo PCR NOT DETECTED 04/20/24 21:15 Nasal M.pneumoniae (PCR) NOT DETECTED 04/20/24 21:15 Nasal SARS-CoV-2 (PCR) NOT DETECTED 04/20/24 21:15 Salicylates < 1.5 mg/dL 04/20/24 20:56 Urine Opiates Screen NEGATIVE (NEGATIVE) 04/20/24 23:20 Ur Buprenorphine Scrn NEGATIVE (NEGATIVE) 04/20/24 23:20 Ur Oxycodone Screen NEGATIVE (NEGATIVE) 04/20/24 23:20 Urine Methadone Screen NEGATIVE (NEGATIVE) 04/20/24 23:20 Acetaminophen < 0.1 ug/mL 04/20/24 20:56 Ur Barbiturates Screen NEGATIVE (NEGATIVE) 04/20/24 23:20 Ur Tricyclics Screen NEGATIVE (NEGATIVE) 04/20/24 23:20 Ur Phencyclidine Scrn NEGATIVE (NEGATIVE) 04/20/24 23:20 Ur Amphetamine Screen NEGATIVE (NEGATIVE) 04/20/24 23:20 U Methamphetamines Scrn NEGATIVE (NEGATIVE) 04/20/24 23:20 U Benzodiazepines Scrn POSITIVE (NEGATIVE) H 04/20/24 23:20 Urine Cocaine Screen NEGATIVE (NEGATIVE) 04/20/24 23:20 U Cannabinoids Screen NEGATIVE (NEGATIVE) 04/20/24 23:20 Ur Drug Screen Comment CUTOFF CONC BELOW: 04/20/24 23:20 Ethyl Alcohol < 10.0 mg/dL 04/20/24 20:56 HSV I IgG Ab <0.91 index (0.00-0.90) 04/21/24 07:30 HSV II IgG <0.91 index (0.00-0.90) 04/21/24 07:30
[2024-04-22 12:10] LABS: CALCIUM 9.3 mg/dL (8.5-10.3); CREATININE 0.7 mg/dL (0.6-1.3); POTASSIUM 2.7 mmol/L (3.5-4.5)
[2024-04-22] MEDS: POTASSIUM CHLORIDE 20 MEQ TABLET PO SCH ×2 (14:09→21:02)
[2024-04-22] MEDS: MAGNESIUM SULFATE 2 GRAM 2 GM/50 ML BAG IV ONE (14:09)
[2024-04-22] MEDS: POTASSIUM CHLOR 10 MEQ/100 ML 10 MEQ/100 ML BAG IV SCH (14:59)
[2024-04-22] MEDS: ONDANSETRON 4 MG/2 ML VIAL IVP PRN (21:02)
[2024-04-22] MEDS: FAMOTIDINE 20 MG TABLET PO SCH (21:02)
[2024-04-23] MEDS: hydrALAZINE INJ 20 MG/ML VIAL IVP ONE (00:59)
[2024-04-23 02:50] LABS: BILIRUBIN,URINE NEGATIVE (NEGATIVE); GLUCOSE, URINE (UA) NEGATIVE (NEGATIVE); KETONES,URINE (UA) TRACE mg/dL (NEGATIVE); LEUKOCYTE ESTERASE, URINE NEGATIVE (NEGATIVE); NITRITE,URINE NEGATIVE (NEGATIVE); OCCULT BLOOD,URINE SMALL (NEGATIVE); PROTEIN,URINE NEGATIVE (NEGATIVE); UROBILINOGEN,URINE 0.2 (NORMAL) E.U./dL (NORMAL)
[2024-04-23 02:52] LABS: CLARITY,URINE CLEAR (CLEAR)
[2024-04-23 03:00] LABS: BACTERIA,URINE Rare /HPF (None Seen); RBC,URINE 0-5 /HPF (0-5); SQUAMOUS EPITHELIAL CELL,UR FEW Squamous (<= Few); WBC,URINE 0-3 /HPF (0-5)
[2024-04-23] MEDS: PANTOPRAZOLE 40 MG TABLET PO SCH (06:17)
[2024-04-23 06:36] LABS: CALCIUM 9.4 mg/dL (8.5-10.3); CREATININE 0.8 mg/dL (0.6-1.3); POTASSIUM 2.9 mmol/L (3.5-4.5)
[2024-04-23] MEDS: MAGNESIUM SULFATE 2 GRAM 2 GM/50 ML BAG IV ONE (07:41)
[2024-04-23 08:04] VITALS: BP 141/95; O2SAT 97
--- NOTE | 2024-04-23 08:22 | PROVIDER PROGRESS NOTE ---
Assessment/Plan - Problem List (1) Encephalopathy Qualifiers: Encephalopathy type: toxic Toxic encephalopathy cause: unspecified toxin Qualified Code(s): G92.9 - Unspecified toxic encephalopathy Assessment/Plan: (1) Encephalopathy Qualifiers: Encephalopathy type: toxic Toxic encephalopathy cause: unspecified toxin Qualified Code(s): G92.9 - Unspecified toxic encephalopathy Assessment/Plan: Encephalopathy type: toxic Toxic encephalopathy cause: unspecified toxin Qualified Code(s): G92.9 - Unspecified toxic encephalopathy Assessment/Plan: Most likely secondary to drug overdose with benzo's and Tramadol. Have spoken t o son over the phone and patient had similar presentation last year (11/29). Does not have a prescription for either and UDS + benzo but negative for opiates. Mentation improved, oriented to self and place and more conversant this am. On admit CT head-negative, CTA chest-negative and CT abdomen and pelvis-concerning for developing colitis. (2) Opioid abuse Assessment/Plan: According to patient she has been taking Tramadol in addition to benzo's. In the Ed did received narcan with improvement in alertness however need ativan afterwards due to agitation. UDS negative for opiates. Have discussed with son the need to fu with PCP vs psychiatry. (3) Leukocytosis Assessment/Plan: Most likely reactive, doubtful infectious etiology, not currently on antibiotics, trend WBC and temp. (4) Elevated troponin level not due to acute coronary syndrome Assessment/Plan: Troponin elevation of 25.7 on admit to 32.6 and down trending to 27.9. Patient denies chest pains. EKG not consistent with ACS. Most likely due to demand ischemia. F/u TTE and fu with PCP or cardiology as outpatient for possible stress test. 5. Hypokalemia -continue to replace and monitor 6. Hypomag -replace - Current Meds Current Meds: Current Medications Generic Name Dose Route Start Last Admin Trade Name Freq PRN Reason Stop Dose Admin Famotidine 20 mg 04/22/24 21:00 04/22/24 21:02 Famotidine 20 Mg Tablet PO 20 mg BID JAZMIN Administration Ondansetron HCl 4 mg 04/21/24 05:02 04/22/24 21:02 Ondansetron 4 Mg/2 Ml Vial IVP 4 mg Q6HR PRN Administration Nausea / Vomiting Pantoprazole Sodium 40 mg 04/23/24 07:00 04/23/24 06:17 Pantoprazole 40 Mg Tablet PO 40 mg QDAC JAZMIN Administration Sodium Chloride 10 ml 04/21/24 09:00 04/23/24 01:03 Sodium Chloride Flush 0.9% 10 Ml Syringe IVP 10 ml 0100,0900,1700 JAZMIN Administration - Lab Result Fish Bone Diagrams: 04/21/24 06:50 04/23/24 05:39 - Additional Planning My Orders: My Active Orders 04/22/24 21:00 Famotidine [Pepcid] 20 mg PO BID 04/23/24 09:00 Potassium Chloride [K-Dur] 40 meq PO BID lisinopriL [Zestril] 5 mg PO DAILY Objective Vital Signs: Vital Signs - 24 hr 04/22/24 04/22/24 04/22/24 09:00 15:36 20:55 Temperature 36.7 C 37.1 C 37.3 C Heart Rate [ 54 L 102 H 85 Brachial] Respiratory 18 20 20 Rate Blood Pressure Blood Pressure 182/110 H [Left Brachial artery] Blood Pressure 164/91 H 156/103 H [Right Brachial artery] Blood Pressure [Right Radial artery] O2 Saturation 97 98 97 04/22/24 04/22/24 04/23/24 20:59 23:36 00:59 Temperature 37.4 C Heart Rate [ 84 60 Brachial] Respiratory 18 Rate Blood Pressure 172/90 H Blood Pressure 159/80 H [Left Brachial artery] Blood Pressure [Right Brachial artery] Blood Pressure 185/114 H [Right Radial artery] O2 Saturation 94 04/23/24 04/23/24 04/23/24 01:19 01:23 01:27 Temperature 37.3 C Heart Rate [ 73 87 Brachial] Respiratory 16 Rate Blood Pressure Blood Pressure 146/86 H 157/87 H 149/98 H [Left Brachial artery] Blood Pressure [Right Brachial artery] Blood Pressure [Right Radial artery] O2 Saturation 04/23/24 04/23/24 01:33 07:54 Temperature 36.7 C Heart Rate [ 95 Brachial] Respiratory 16 Rate Blood Pressure Blood Pressure 153/95 H 141/95 H [Left Brachial artery] Blood Pressure [Right Brachial artery] Blood Pressure [Right Radial artery] O2 Saturation 97 Oxygen O2 Source Room air I&O (Last 24 Hrs): Intake and Output Totals x24h 04/21/24 04/22/24 04/23/24 23:59 23:59 23:59 Intake Total 2193.333 1535 1100 Output Total 150 250 Balance 2193.333 1385 850 - Results Results: Laboratory Results WBC 14.3 x10^3/uL (4.8-10.8) H 04/21/24 06:50 RBC 4.25 10^6/uL (4.20-5.40) 04/21/24 06:50 Hgb 11.0 g/dL (12.0-16.0) L 04/21/24 06:50 Hct 34.7 % (37.0-47.0) L 04/21/24 06:50 MCV 81.6 fL (81.0-99.0) 04/21/24 06:50 MCH 25.9 pg (27.0-31.0) L 04/21/24 06:50 MCHC 31.7 g/dL (32.0-36.0) L 04/21/24 06:50 RDW 15.5 % (12.0-15.0) H 04/21/24 06:50 Plt Count 371 10^3/uL (130-450) 04/21/24 06:50 MPV 9.6 fL (7.9-10.8) 04/21/24 06:50 Neut # (Auto) 11.4 10^3/uL (1.5-6.6) H 04/21/24 06:50 Lymph # (Auto) 2.0 10^3/uL (1.5-3.5) 04/21/24 06:50 Payne # (Auto) 0.8 10^3/uL (0.0-1.0) 04/21/24 06:50 Eos # (Auto) 0.0 10^3/uL (0.0-0.7) 04/21/24 06:50 Baso # (Auto) 0.0 10^3/uL (0.0-0.1) 04/21/24 06:50 Absolute Nucleated RBC 0.00 x10^3/uL 04/21/24 06:50 Nucleated RBC % 0.0 /100WBC 04/21/24 06:50 PT 12.4 secs (9.9-12.6) 04/20/24 20:56 INR 1.1 (0.8-1.2) 04/20/24 20:56 VBG pH 7.482 (7.31-7.41) H 04/20/24 21:55 VBG pCO2 26.8 mmHg (41-51) L 04/20/24 21:55 VBG pO2 39.8 mmHg (25-47) 04/20/24 21:55 VBG HCO3 19.6 mmol/L (23-28) L 04/20/24 21:55 VBG Total CO2 20.4 mmol/L (24-29) L 04/20/24 21:55 VBG O2 Saturation 78.3 % (60-80) 04/20/24 21:55 VBG Base Excess -2.4 mmol/L (-2 - +2) L 04/20/24 21:55 Sodium 139 mmol/L (135-145) 04/23/24 05:39 Potassium 2.9 mmol/L (3.5-4.5) L 04/23/24 05:39 Chloride 109 mmol/L (101-111) 04/23/24 05:39 Carbon Dioxide 20 mmol/L (21-32) L 04/23/24 05:39 Anion Gap 10.0 (6-13) 04/23/24 05:39 BUN 13 mg/dL (6-20) 04/23/24 05:39 Creatinine 0.8 mg/dL (0.6-1.3) 04/23/24 05:39 Estimated GFR (MDRD) 72 (>89) L 04/23/24 05:39 Glucose 111 mg/dL (74-104) H 04/23/24 05:39 Lactic Acid 1.6 mmol/L (0.5-2.2) 04/21/24 03:20 Calcium 9.4 mg/dL (8.5-10.3) 04/23/24 05:39 Phosphorus 1.4 mg/dL (2.5-5.0) L 04/21/24 06:50 Magnesium 1.6 mg/dL (1.7-2.3) L 04/22/24 11:42 Total Bilirubin 0.6 mg/dL (0.2-1.0) 04/21/24 06:50 AST 21 IU/L (10-42) 04/21/24 06:50 ALT 10 IU/L (10-60) 04/21/24 06:50 Alkaline Phosphatase 92 IU/L (42-121) 04/21/24 06:50 Ammonia 26.4 umol/L (18-72) 04/20/24 20:55 Total Creatine Kinase 71 IU/L (30-223) 04/20/24 20:56 Troponin I High Sens 27.9 ng/L (2.3-14.8) H* 04/21/24 17:20 B-Natriuretic Peptide 381 pg/mL (5-100) H 04/21/24 06:50 Total Protein 7.3 g/dL (6.4-8.9) 04/21/24 06:50 Albumin 4.0 g/dL (3.2-5.5) 04/21/24 06:50 Globulin 3.3 g/dL (2.1-4.2) 04/21/24 06:50 Albumin/Globulin Ratio 1.2 (1.0-2.2) 04/21/24 06:50 Lipase < 10 U/L (11-82) L 04/20/24 20:56 Procalcitonin Immunoas < 0.05 ng/mL (<0.5) 04/21/24 06:50 TSH 1.62 uIU/mL (0.34-5.60) 04/21/24 06:50 Urine Color YELLOW 04/23/24 02:25 Urine Clarity CLEAR (CLEAR) 04/23/24 02:25 Urine pH 7.0 PH (5.0-7.5) 04/23/24 02:25 Ur Specific [employer] 1.020 (1.002-1.030) 04/23/24 02:25 Urine Protein NEGATIVE mg/dL (NEGATIVE) 04/23/24 02:25 Urine Glucose (UA) NEGATIVE mg/dL (NEGATIVE) 04/23/24 02:25 Urine Ketones TRACE mg/dL (NEGATIVE) 04/23/24 02:25 Urine Occult Blood SMALL (NEGATIVE) H 04/23/24 02:25 Urine Nitrite NEGATIVE (NEGATIVE) 04/23/24 02:25 Urine Bilirubin NEGATIVE (NEGATIVE) 04/23/24 02:25 Urine Urobilinogen 0.2 (NORMAL) E.U./dL (NORMAL) 04/23/24 02:25 Ur Leukocyte Esterase NEGATIVE (NEGATIVE) 04/23/24 02:25 Urine RBC 0-5 /HPF (0-5) 04/23/24 02:25 Urine WBC 0-3 /HPF (0-5) 04/23/24 02:25 Ur Squamous Epith Cells FEW Squamous (<= Few) 04/23/24 02:25 Urine Bacteria Rare /HPF (None Seen) 04/23/24 02:25 Ur Microscopic Review INDICATED 04/23/24 02:25 Urine Culture Comments NOT INDICATED 04/23/24 02:25 Nasal Adenovirus (PCR) NOT DETECTED 04/20/24 21:15 Nasal B. parapertussis DNA (PCR) NOT DETECTED 04/20/24 21:15 Nasal Coronavir 229E PCR NOT DETECTED 04/20/24 21:15 Nasal Coronavir HKU1 PCR NOT DETECTED 04/20/24 21:15 Nasal Coronavir NL63 PCR NOT DETECTED 04/20/24 21:15 Nasal Coronavir OC43 PCR NOT DETECTED 04/20/24 21:15 Nasal Enterovir/Rhinovir PCR NOT DETECTED 04/20/24 21:15 Nasal Influenza B PCR NOT DETECTED 04/20/24 21:15 Nasal Influenza A PCR NOT DETECTED 04/20/24 21:15 Nasal Parainfluen 1 PCR NOT DETECTED 04/20/24 21:15 Nasal Parainfluen 2 PCR NOT DETECTED 04/20/24 21:15 Nasal Parainfluen 3 PCR NOT DETECTED 04/20/24 21:15 Nasal Parainfluen 4 PCR NOT DETECTED 04/20/24 21:15 Nasal RSV (PCR) NOT DETECTED 04/20/24 21:15 Nasal B.pertussis DNA PCR NOT DETECTED 04/20/24 21:15 Nasal C.pneumoniae (PCR) NOT DETECTED 04/20/24 21:15 [place] Human Metapneumo PCR NOT DETECTED 04/20/24 21:15 Nasal M.pneumoniae (PCR) NOT DETECTED 04/20/24 21:15 Nasal SARS-CoV-2 (PCR) NOT DETECTED 04/20/24 21:15 Salicylates < 1.5 mg/dL 04/20/24 20:56 Urine Opiates Screen NEGATIVE (NEGATIVE) 04/20/24 23:20 Ur Buprenorphine Scrn NEGATIVE (NEGATIVE) 04/20/24 23:20 Ur Oxycodone Screen NEGATIVE (NEGATIVE) 04/20/24 23:20 Urine Methadone Screen NEGATIVE (NEGATIVE) 04/20/24 23:20 Acetaminophen < 0.1 ug/mL 04/20/24 20:56 Ur Barbiturates Screen NEGATIVE (NEGATIVE) 04/20/24 23:20 Ur Tricyclics Screen NEGATIVE (NEGATIVE) 04/20/24 23:20 Ur Phencyclidine Scrn NEGATIVE (NEGATIVE) 04/20/24 23:20 Ur Amphetamine Screen NEGATIVE (NEGATIVE) 04/20/24 23:20 U Methamphetamines Scrn NEGATIVE (NEGATIVE) 04/20/24 23:20 U Benzodiazepines Scrn POSITIVE (NEGATIVE) H 04/20/24 23:20 Urine Cocaine Screen NEGATIVE (NEGATIVE) 04/20/24 23:20 U Cannabinoids Screen NEGATIVE (NEGATIVE) 04/20/24 23:20 Ur Drug Screen Comment CUTOFF CONC BELOW: 04/20/24 23:20 Ethyl Alcohol < 10.0 mg/dL 04/20/24 20:56 HSV I IgG Ab <0.91 index (0.00-0.90) 04/21/24 07:30 HSV II IgG <0.91 index (0.00-0.90) 04/21/24 07:30
[2024-04-23] MEDS: lisinopriL 5 MG TABLET PO SCH (09:57)
[2024-04-23] MEDS: POTASSIUM CHLORIDE 20 MEQ TABLET PO SCH (09:58)
--- NOTE | 2024-04-23 10:12 | Discharge Plan ---
Discharge Plan Problem Reviewed?: Yes Disposition: Home, Self Care Condition: Good Prescriptions: lisinopriL [Zestril] 5 mg PO DAILY #30 tab Diet: Regular Activity Restrictions: No Restrictions Shower Restrictions: No Driving Restrictions: Yes (f/u with PCP before operating motor vehicle) Weight Bearing: Full Weight Health Concerns: F/u with cardiology as outpatient Assessment: (1) Encephalopathy Qualifiers: Encephalopathy type: toxic Toxic encephalopathy cause: unspecified toxin Qualified Code(s): G92.9 - Unspecified toxic encephalopathy Assessment/Plan: Encephalopathy type: toxic Toxic encephalopathy cause: unspecified toxin Qualified Code(s): G92.9 - Unspecified toxic encephalopathy Assessment/Plan: Most likely secondary to drug overdose with benzo's and Tramadol. Have spoken to son over the phone and patient had similar presentation last year (11/29). Does not have a prescription for either and UDS + benzo but negative for opiates. Mentation improved, oriented to self and place and more conversant this am. On admit CT head-negative, CTA chest-negative and CT abdomen and pelvis-concerning for developing colitis. (2) Opioid abuse Assessment/Plan: According to patient she has been taking Tramadol in addition to benzo's. In the Ed did received narcan with improvement in alertness however need ativan afterwards due to agitation. UDS negative for opiates. Have discussed with son the need to fu with PCP vs psychiatry. (3) Leukocytosis Assessment/Plan: Most likely reactive, doubtful infectious etiology, not currently on antibiotics, trend WBC and temp. (4) Elevated troponin level not due to acute coronary syndrome Assessment/Plan: Troponin elevation of 25.7 on admit to 32.6 and down trending to 27.9. Patient denies chest pains. EKG not consistent with ACS. Most likely due to demand ischemia. F/u TTE and fu with PCP or cardiology as outpatient for possible stress test. 5. Hypokalemia -continue to replace and monitor 6. Hypomag -replace Additional Instructions or Follow Up instructions: F/u with PCP in 1 week No Smoking: If you smoke, Please STOP! Call for help.
--- NOTE | 2024-04-23 10:29 | DISCHARGE SUMMARY ---
Discharge Summary Discharge Date: 04/23/24 Discharging Provider: Dr. Aman Lee Code Status: Attempt Resuscitation Condition at Discharge: Good Discharge Disposition: 01 Home, Self Care Discharge Facility Name: home - DIAGNOSES Admission Diagnoses: Acute toxic metabolic encephalopathy Discharge Diagnoses with Status of Each Condition: (1) Encephalopathy Qualifiers: Encephalopathy type: toxic Toxic encephalopathy cause: unspecified toxin Qualified Code(s): G92.9 - Unspecified toxic encephalopathy Assessment/Plan: (1) Encephalopathy Qualifiers: Encephalopathy type: toxic Toxic encephalopathy cause: unspecified toxin Qualified Code(s): G92.9 - Unspecified toxic encephalopathy Assessment/Plan: Encephalopathy type: toxic Toxic encephalopathy cause: unspecified toxin Qualified Code(s): G92.9 - Unspecified toxic encephalopathy Assessment/Plan: Most likely secondary to drug overdose with benzo's and Tramadol. Have spoken to son over the phone and patient had similar presentation last year (11/29). Does not have a prescription for either and UDS + benzo but negative for opiates. Mentation improved, oriented to self and place and more conversant this am. On admit CT head-negative, CTA chest-negative and CT abdomen and pelvis-concerning for developing colitis. (2) Opioid abuse Assessment/Plan: According to patient she has been taking Tramadol in addition to benzo's. In the Ed did received narcan with improvement in alertness however need ativan afterwards due to agitation. UDS negative for opiates. Have discussed with son the need to fu with PCP vs psychiatry. (3) Leukocytosis Assessment/Plan: Most likely reactive, doubtful infectious etiology, not currently on antibiotics, trend WBC and temp. (4) Elevated troponin level not due to acute coronary syndrome Assessment/Plan: Troponin elevation of 25.7 on admit to 32.6 and down trending to 27.9. Patient denies chest pains. EKG not consistent with ACS. Most likely due to demand ischemia. F/u TTE and fu with PCP or cardiology as outpatient for possible stress test. 5. Hypokalemia -continue to replace and monitor 6. Hypomag -replace - HPI History of Present Illness: [id number] who was found down at home with opioids around her. It seems patient had overdose on opioid Tapentadol. Patient had a blister pack and it was not clear how much did she take. Patient reportedly found by . EMS was called and patient was given Narcan which had a positive effect in the field. Patient was brought into the ED where workup has been non insightful. Oddly urine drug screen was not positive for opioids. Patient's mentation has slowly improved while in the ED. Non focal exam. She is now following command however her response to questions are still not baseline. ED subsequently reached out to Poison Control who recommended observing still baseline. ED staff then reached out to Hospital Medicine for assistance with medical management. - HOSPITAL COURSE Hospital Course: 68 year old female with a PMH as stated above. [facility] toxic metabolic enecphalopathy secondary to drug overdose. UDS + benzo's however negative for opiates. CT head negative. CTA negative for central pe, CT abdomen and pelvis showing diffuse appearance of colonic thickening, possibly representing colitis. Patient without abdominal pains, afebrile and no infectious etiology identified while as inpatient. No antibiotics given. On admit the patient did have an elevated high sensitivity troponin of 25.7, peaked at 32.6 and on 04/23/24 was 26.9. EKG did not show ischemic changes and the patient was not complaining of chest pains or chest tightness. Most likely due to demand ischemia. A TTE was ordered however not done prior to being discharged and she was told to fu with PCP to obtain as an outpatient. During her hospital course her mentation improved and on the day of discharge she was conversant and ambulating without difficulty. I was able to speak to the son on several occasions and give him updates and she was discharged today in stable condition. - ALLERGIES Allergies/Adverse Reactions: Allergies Allergy/AdvReac Type Severity Reaction Status Date / Time No Known Drug Allergies Allergy Verified 04/20/24 20:49 - MEDICATIONS Home Medications: Ambulatory Orders Medication Instructions Recorded Confirmed Escitalopram [Lexapro] 10 mg PO DAILY 04/21/24 04/21/24 Omeprazole 20 mg PO PRN PRN 04/21/24 04/21/24 Acetaminophen [Tylenol] 650 mg PO Q4HR PRN tab 04/23/24 Famotidine [Pepcid] 20 mg PO BID tab 04/23/24 lisinopriL [Zestril] 5 mg PO DAILY #30 tab 04/23/24 - PHYSICAL EXAM AT DISCHARGE General Appearance: positive: No acute distress, Alert Eyes Bilateral: positive: Normal inspection ENT: positive: ENT inspection nml Neck: positive: Nml inspection Respiratory: positive: Chest non-tender, No respiratory distress, Breath sounds nml Cardiovascular: positive: Regular rate & rhythm Abdomen: positive: Non-tender, No distention Back: positive: Nml inspection Skin: positive: No rash Extremities: positive: Non-tender Neurologic/Psychiatric: positive: Mood/affect nml - LABS Result Diagrams: 04/21/24 06:50 04/23/24 05:39 - DIAGNOSTIC IMAGING Diagnostic Imaging Results: Final report reviewed - QUALITY (Female Hip Fx Only) Was patient sent home on osteoporosis medication?: No - FOLLOW UP Follow Up: F/u with PCP in 7 days. Outpatient TTE re: elevated toponin while as inpatient. - TIME SPENT Time Spent in Discharge (Minutes): 45
== END 2024-04-23 12:37 | disposition home or self-care (01) | DRG 917 ==
LOC: EDUNIT# → ED 20:23 → MS2 04-21 05:02 → OBSVTOIN 04-22 12:21
PROVIDERS: ADMIT Internal Medicine; ATTEND Internal Medicine
DX: T40.2X4A Poisoning by other opioids, undetermined, initial encounter (principal); G92.8 Other toxic encephalopathy; T42.4X4A Poisoning by benzodiazepines, undetermined, initial encounter; Y92.009 Unspecified place in unspecified non-institutional (private) residence as the place of occurrence of the external cause; F11.10 Opioid abuse, uncomplicated; D72.829 Elevated white blood cell count, unspecified; F32.A Depression, unspecified; F41.9 Anxiety disorder, unspecified; E87.6 Hypokalemia; R79.89 Other specified abnormal findings of blood chemistry; E83.42 Hypomagnesemia; K21.9 Gastro-esophageal reflux disease without esophagitis; Z87.891 Personal history of nicotine dependence; K44.9 Diaphragmatic hernia without obstruction or gangrene
CPT/HCPCS: 36415; 51701; 70450; 71045; 71275; 74177; 80048; 80053; 80143; 80306; 81001; 81003; 82140; 82550; 82803; 83605; 83690; 83735; 83880; 84100; 84145; 84443; 84484; 85025; 85610; 86695; 86696; 87040; 87633; 93005; 93307; 96361; 96365; 96375; 96376; 99284; 99285; A9270; G0378; G0480; J2060; J2765; Q9967; 80179; 80365; 82077; 87086; 87529

== ENCOUNTER 2024-11-19 14:29 | Inpatient (IN) ==
--- NOTE | 2024-11-19 14:52 | ED Physician Documentation ---
PD HPI ALTERED MENTAL STATUS Stated complaint Stated Complaint: AMS Chief complaint Chief Complaint: Neuro History obtained from History obtained from: Patient and EMS History of Present Illness Timing - onset: How many days ago (EMS reports patient ill x 2 days with vomiting, congestion. Now confused today. ) Timing - details: Gradual onset Quality / character: Confused and Disoriented Associated symptoms: NVD; No Headache or Focal weakness Contributing factors: No Anticoagulated or Diabetic Basline status: Ambulatory Meds/Allgy Home Medications Ambulatory Orders Medication Instructions Recorded Confirmed Omeprazole 20 mg PO PRN PRN Per Pharmacy 04/21/24 04/21/24 escitalopram oxalate 10 mg tablet 10 mg PO DAILY 04/21/24 04/21/24 acetaminophen 325 mg tablet 650 mg (2 x 325 mg) PO Q4HR PRN 04/23/24 Pain 1 to 4, or Fever famotidine 20 mg tablet 20 mg PO BID 04/23/24 lisinopril 5 mg tablet 5 mg PO DAILY hypertension #30 tabs 04/23/24 Allergies Allergies Allergy/AdvReac Type Severity Reaction Status Date / Time No Known Drug Allergies Allergy Verified 11/19/24 14:45 PFSH Social History Social History Smoking Status: Never smoker If you are a former smoker, when did you quit? (Date/Year): 2013 Do you dip or chew tobacco?: No Do you vape?: No Living arrangement: At home Living Condition: With family Relationship: Child POLST Patient has POLST: No POLST Status: Full Code (has advanced directive to be DNR if terminal or vegetative) Exam Constitutional normal general appearance, no apparent distress (calm appearing and not anxious. Slow to respond to direction.) and average body habitus follows simple commands such as hand scalloper. Answers "yes" to most all questions and looks blankly if asked a more than yes/no quesiton. Not somnolent. NO head tenderness. HENMT normocephalic and head/scalp atraumatic Eyes PERRL (not constricted. ) and EOMs intact bilaterally Neck/C-Spine cervical spine nontender, supple and no meningeal signs Lymph no lymphadenopathy noted Chest inspection of chest normal and palpation of chest normal Respiratory breath sounds equal bilaterally and normal respiratory effort Cardiovascular normal heart rate noted and regular rhythm noted Gastrointestinal abdomen soft to palpation and nontender to palpation Back/Pelvis no thoracic spine tenderness and no lumbar spine tenderness Extremities normal to inspection and no deformity Neurology no movement abnormality noted, no focal motor deficit noted and no sensory deficits noted Psychiatry orientation abnormal (disoriented to place) and (disoriented to time), thought p rocess abnormality noted (confused) and affect abnormality noted (flat) Results Vitals Vitals: Vital Signs - 24 hr 11/19/24 14:40 11/19/24 16:46 11/19/24 17:50 Temperature 36.9 C 37.2 C 36.7 C Temperature Source Temporal Artery Scan Temporal Artery Scan Oral Pulse Rate 72 86 71 Respiratory Rate 18 18 18 Blood Pressure 180/103 H 172/111 H 193/87 H O2 Saturation 99 99 100 O2 Source Room air Room air Room air Pain Intensity 0 11/19/24 19:47 11/19/24 21:53 Temperature 37.3 C 37.2 C Temperature Source Tympanic Tympanic Pulse Rate 78 86 Respiratory Rate 18 16 Blood Pressure 168/92 H 155/89 H O2 Saturation 95 94 O2 Source Room air Room air Pain Intensity 0 0 Oxygen O2 Source Room air Labs Labs: Laboratory Tests 11/19/24 11/19/24 15:20 15:42 WBC 10.3 RBC 5.18 Hgb 13.2 Hct 42.0 MCV 81.1 MCH 25.5 L MCHC 31.4 L RDW 17.2 H Plt Count 507 H MPV 9.2 Neut # (Auto) 8.8 H Lymph # (Auto) 1.2 L [place] # (Auto) 0.2 Eos # (Auto) 0.0 Baso # (Auto) 0.0 Absolute Nucleated RBC 0.00 Nucleated RBC % 0.0 Sodium 142 Potassium 3.5 Chloride 106 Carbon Dioxide 20 L Anion Gap 16.0 H BUN 21 H Creatinine 0.9 Estimated GFR (MDRD) 62 L Glucose 166 H Calcium 10.6 H Magnesium 1.9 Total Bilirubin 0.8 AST 22 ALT 12 Alkaline Phosphatase 114 Total Protein 8.7 Albumin 4.8 Globulin 3.9 Albumin/Globulin Ratio 1.2 Lipase 11 Urine Color YELLOW Urine Clarity CLOUDY Urine pH 7.5 Ur Specific [place] 1.020 Urine Protein TRACE Urine Glucose (UA) NEGATIVE Urine Ketones TRACE Urine Occult Blood TRACE-INTA Urine Nitrite NEGATIVE Urine Bilirubin NEGATIVE Urine Urobilinogen 0.2 (NORMAL) Ur Leukocyte Esterase TRACE H Urine RBC 0-5 Urine WBC 6-10 H Ur Squamous Epith Cells RARE Squamous Urine Bacteria Many H Ur Microscopic Review INDICATED Urine Culture Comments INDICATED Urine Opiates Screen NEGATIVE Ur Buprenorphine Scrn NEGATIVE Ur Oxycodone Screen NEGATIVE Urine Methadone Screen NEGATIVE Ur Barbiturates Screen NEGATIVE Ur Tricyclics Screen NEGATIVE Ur Phencyclidine Scrn NEGATIVE Ur Amphetamine Screen NEGATIVE U Methamphetamines Scrn NEGATIVE U Benzodiazepines Scrn NEGATIVE Urine Cocaine Screen NEGATIVE U Cannabinoids Screen NEGATIVE Ur Drug Screen Comment CUTOFF CONC BELOW: Ethyl Alcohol < 10.0 PD Medical Decision Making ED course Complexity details: reviewed results (head CT without acute process. Labs without significant abnormality. UTox negative. Glucose is okay. No obvious infection source on exam. Not clear the cause of altered mentation. No focal deficit, so less likely crebrovascular. Has UTI but wbc and lactate are negative. ), considered differential and d/w patient Reviewed Lab Results: UTox negative but does not preclude substances not on that, such as fentanyl, Dex, etc, though these typically are sedating as well. ED course: The patient was brought in by EMS with report from I believe remote family members who called her and she was sounding confused. The patient reportedly was having emesis over the last day or 2 of bilious material and she had some yellow bile coloring on her clothing. Also general weakness and confusion. The patient is only really able to answer questions yes to most everything and seems to be confused though will able to answer her name and date of . No headache. She denies currently having chest pain or belly pain. No focal weaknesses. The patient was tested for basic blood count and electrolytes without any notable abnormality. Blood sugar was good. The urine tox screen was done and was negative on all counts as the report from EMS as the patient has had prior history of narcotic abuse. She did not have pinpoint pupils and was not somnolent per se. She does have a UTI but unclear whether this is enough to be accounting for her altered mentation. Head CT was done without any acute abnormalities. At this point we are giving the patient IV fluids and did give ceftriaxone IV for the UTI. No other acute medications at this point. I would see if she has improvement in her mentation with treating with fluids and antibiotics. Otherwise consider perhaps MRI to look for cerebrovascular process etc. Care of the patient transferred over to Dr. Miner at change of shift as there are no beds available in the hospital. I would otherwise have thought the patient should be admitted for further evaluation. Discharge Plan Discharge Patient Disposition: ED Place in Observation Condition: Stable Clinical Impression: Altered mental status, Confusion, Acute UTI Prescriptions: No Action escitalopram oxalate 10 MG tablet 10 mg PO DAILY Omeprazole 20 MG Tablet.Dr 20 mg PO PRN PRN (Reason: Per Pharmacy) acetaminophen 325 MG tablet 650 mg PO Q4HR PRN (Reason: Pain 1 to 4, or Fever) 0RF famotidine 20 MG tablet 20 mg PO BID 0RF lisinopril 5 MG tablet 5 mg PO DAILY Qty: 30 1RF Print Language: Turkish Stand Alone Forms: PCP List
[2024-11-19] MEDS: SODIUM CHLORIDE 0.9% 1,000 ML IV STA ×2 (15:22→17:54)
[2024-11-19 15:25] LABS: BASOPHILS % (AUTO) 0.1 %; EOSINOPHILS % (AUTO) 0.1 %; HGB - HEMOGLOBIN 13.2 g/dL (12.0-16.0); LYMPHOCYTES # (AUTO) 1.2 10^3/uL (1.5-3.5); LYMPHOCYTES % (AUTO) 11.7 %; MEAN CORPUSCULAR HEMOGLOBIN 25.5 pg (27.0-31.0); MEAN CORPUSCULAR HGB CONC 31.4 g/dL (32.0-36.0); MEAN CORPUSCULAR VOLUME 81.1 fL (81.0-99.0); MEAN PLATELET VOLUME 9.2 fL (7.9-10.8); MONOCYTES # (AUTO) 0.2 10^3/uL (0.0-1.0); MONOCYTES % (AUTO) 2.3 %; NEUTROPHILS # (AUTO) 8.8 10^3/uL (1.5-6.6); NEUTROPHILS % (AUTO) 85.3 %; PLT - PLATELET COUNT 507 10^3/uL (130-450); RED BLOOD COUNT 5.18 10^6/uL (4.20-5.40); RED CELL DISTRIBUTION WIDTH 17.2 % (12.0-15.0); WHITE BLOOD COUNT 10.3 x10^3/uL (4.8-10.8)
[2024-11-19 15:34] LABS: MAGNESIUM 1.9 mg/dL (1.7-2.3)
[2024-11-19 15:40] LABS: ETOH - ETHANOL < 10.0 mg/dL; LIPASE 11 U/L (11-82)
[2024-11-19 15:50] LABS: BILIRUBIN,URINE NEGATIVE (NEGATIVE); GLUCOSE, URINE (UA) NEGATIVE (NEGATIVE); KETONES,URINE (UA) TRACE mg/dL (NEGATIVE); LEUKOCYTE ESTERASE, URINE TRACE (NEGATIVE); NITRITE,URINE NEGATIVE (NEGATIVE); OCCULT BLOOD,URINE TRACE-INTA (NEGATIVE); PH,URINE 7.5 PH (5.0-7.5); PROTEIN,URINE TRACE mg/dL (NEGATIVE); UROBILINOGEN,URINE 0.2 (NORMAL) E.U./dL (NORMAL)
[2024-11-19 15:53] LABS: CLARITY,URINE CLOUDY (CLEAR)
--- NOTE | 2024-11-19 15:57 | CT Report ---
PROCEDURE: CT Head WO INDICATIONS: AMS today TECHNIQUE: Noncontrast 4.5 mm thick angled axial sections acquired from the foramen magnum to the vertex. For r adiation dose reduction, the following was used: automated exposure control, adjustment of mA and/or kV according to patient size. COMPARISON: CT head 04/20/2024 FINDINGS: Image quality: Excellent. CSF spaces: Basal cisterns are patent. No extra-axial fluid collections. Ventricles are normal in size and shape. Brain: No midline shift. No intracranial masses or hemorrhage. Honeycutt-white matter interface is norm al. Skull and face: Calvarium and visualized facial bones are intact, without suspicious lesions. Sinuses: Visualized sinuses and mastoids are clear. IMPRESSION: No acute intracranial pathology. Reviewed by: Vickie Thompson MD on 11/19/2024 3:56 PM PST Approved by: Vickie Thompson MD on 11/19/2024 3:56 PM PST Station ID: [id number]
[2024-11-19 16:08] LABS: ALBUMIN 4.8 g/dL (3.2-5.5); ALBUMIN/GLOBULIN RATIO 1.2 (1.0-2.2); ALKALINE PHOSPHATASE 114 IU/L (42-121); ALT ALANINE AMINOTRANSFERASE 12 IU/L (10-60); AST ASPARTATE AMINOTRANSFERASE 22 IU/L (10-42); BILIRUBIN,TOTAL 0.8 mg/dL (0.2-1.0); BUN - BLOOD UREA NITROGEN 21 mg/dL (6-20); CALCIUM 10.6 mg/dL (8.5-10.3); CARBON DIOXIDE - CO2 20 mmol/L (21-32); CHLORIDE 106 mmol/L (101-111); CREATININE 0.9 mg/dL (0.6-1.3); GFR - MDRD 62 (>89); GLUCOSE 166 mg/dL (74-104); POTASSIUM 3.5 mmol/L (3.5-4.5); SODIUM 142 mmol/L (135-145); TOTAL PROTEIN 8.7 g/dL (6.4-8.9)
[2024-11-19 16:16] LABS: BACTERIA,URINE Many /HPF (None Seen); RBC,URINE 0-5 /HPF (0-5); SQUAMOUS EPITHELIAL CELL,UR RARE Squamous (<= Few)
[2024-11-19 16:26] LABS: AMPHETAMINE SCREEN,URINE NEGATIVE (NEGATIVE); BARBITURATE SCREEN,UR NEGATIVE (NEGATIVE); BENZODIAZEPINES SCREEN, URINE NEGATIVE (NEGATIVE); BUPRENORPHINE SCREEN, URINE NEGATIVE (NEGATIVE); COCAINE SCREEN URINE NEGATIVE (NEGATIVE); METHADONE SCREEN, URINE NEGATIVE (NEGATIVE); METHAMPHETAMINES SCREEN, URINE NEGATIVE (NEGATIVE); OPIATE SCREEN, URINE NEGATIVE (NEGATIVE); OXYCODONE SCREEN, URINE NEGATIVE (NEGATIVE); THC CANNABINOID SCREEN, URINE NEGATIVE (NEGATIVE); TRICYCLIC ANTIDEPRESSANT,URINE NEGATIVE (NEGATIVE)
[2024-11-19] MEDS: ONDANSETRON ODT 4 MG TABLET TL STA (16:34)
[2024-11-19] MEDS: cefTRIAXone 1 GM VIAL IVP STA (17:24)
[2024-11-19] MEDS: ONDANSETRON 4 MG/2 ML VIAL IVP STA ×2 (17:55→21:47)
--- NOTE | 2024-11-20 07:59 | ED Physician Documentation ---
ED Addendum Addendum Addendum: Kathia Young is a 68y/o female with acute confusion and UTI she is left in my care at shift change and overnight she does not clear, she is improved but still has excessive speak latency (2-6 seconds) and delay in execution of motor commands. She has been treated with IV saline and rocephin and we will provide maintanence fluids until a bed becomes available for admission Discharge Plan Discharge Patient Disposition: ED Place in Observation Condition: Stable Clinical Impression: Altered mental status, Confusion, Acute UTI Prescriptions: No Action escitalopram oxalate 10 MG tablet 10 mg PO DAILY Omeprazole 20 MG Tablet.Dr 20 mg PO PRN PRN (Reason: Per Pharmacy) acetaminophen 325 MG tablet 650 mg PO Q4HR PRN (Reason: Pain 1 to 4, or Fever) 0RF famotidine 20 MG tablet 20 mg PO BID 0RF lisinopril 5 MG tablet 5 mg PO DAILY Qty: 30 1RF Print Language: Vietnamese Stand Alone Forms: PCP List
[2024-11-20] MEDS: SODIUM CHLORIDE 0.9% 1,000 ML IV STA (09:56)
--- NOTE | 2024-11-20 10:23 | HISTORY & PHYSICAL EXAMINATION ---
Chief Complaint Chief Complaint Chief Complaint: Confusion History of Present Illness Admitted From Admitted From:: Home History Obtained From Records Reviewed: EMR History obtained from: Patient's son, Baltazar Young - [phone] Exam Limitations: Patient altered History of Present Illness HPI Comment/Other: Patient is a 68-year-old female with a history of depression, GERD who presents for confusion. Patient is following commands, and is able to answer yes or no questions, but is taking a few minutes to answer. She is very slow to respond. As such, her son was spoken with. Baltazar Young, [id number], lives with her. Over the weekend, she stated that she was starting to have symptoms of a urinary tract infection. She stated that she was in a call her primary care provider and get antibiotics, but this was never done. Over the next few days, she began to feel little worse. Her son noticed that she was confused over the last couple days, and as such, decided to bring her in. He notes that she had C. difficile approximately 2 years ago, and had a similar mental status change at that time. In the emergency room, patient was vitally stable; her blood pressure was elevated in the 160s to 170s range, heart rate was 70s, she was breathing with a respiratory rate of 16, saturating 97% on room air. She was also afebrile. Lab work was reviewedshe had no leukocytosis. Her creatinine was within normal limits. Her glucose was mildly elevated. She also had a mild high anion gap of 16. Her calcium was mildly elevated at 10.6 as well UA was positive for WBCs, bacteria. Urine culture was sent. CT head showed no acute infarcts. IV fluids were given. She was started on Rocephin. MRI was ordered. She is admitted for further workup of altered mental status. Meds/Allgy Home Medications Ambulatory Orders Medication Instructions Recorded Confirmed Omeprazole 20 mg PO PRN PRN Per Pharmacy 04/21/24 04/21/24 escitalopram oxalate 10 mg tablet 10 mg PO DAILY 04/21/24 04/21/24 acetaminophen 325 mg tablet 650 mg (2 x 325 mg) PO Q4HR PRN 04/23/24 Pain 1 to 4, or Fever famotidine 20 mg tablet 20 mg PO BID 04/23/24 lisinopril 5 mg tablet 5 mg PO DAILY hypertension #30 tabs 04/23/24 Allergies Allergies Allergy/AdvReac Type Severity Reaction Status Date / Time No Known Drug Allergies Allergy Verified 11/19/24 14:45 [facility] Social History Social History Smoking Status: Never smoker If you are a former smoker, when did you quit? (Date/Year): 2013 Do you dip or chew tobacco?: No Do you vape?: No Living arrangement: At home Living Condition: With family Relationship: Child POLST Patient has POLST: No POLST Status: Full Code (has advanced directive to be DNR if terminal or vegetative) Review of Systems Status of ROS: unobtainable due to mental status (patient not answering questions appropriately at this time) Prior Level of Functionality: Fairly independent. Lives with son. Exam Constitutional normal general appearance, no apparent distress and average body habitus HENMT normocephalic, head/scalp atraumatic, hearing grossly normal bilaterally and external ears normal Eyes EOMs intact bilaterally and no nystagmus Pupils dilated but equal and reactive to light Neck/C-Spine visual inspection normal and trachea midline Lymph no lymphedema noted Chest inspection of chest normal Respiratory breath sounds equal bilaterally, normal respiratory effort, clear to auscultation bilaterally, no wheezes and no rales Cardiovascular normal heart rate noted, regular rhythm noted, no gallop, no rub and no murmur Gastrointestinal abdomen normal to inspection, abdomen soft to palpation, nontender to palpation, nondistended and normoactive bowel sounds Genitourinary no CVA tenderness and bladder normal to palpation Back/Pelvis spine normal to inspection Extremities normal to inspection, normal to palpation, no tenderness and full ROM Neurology no movement abnormality noted, no focal motor deficit noted and speech abnormality noted (Delayed speech) Patient is able to follow commandsstrength is 5-5 in all extremities. Psychiatry mental status grossly normal, orientation abnormal (disoriented to place) and (disoriented to time) and cooperative Skin skin color normal, no rash and no lesions Conclusion/Plan Problem List (1) Acute metabolic encephalopathy: Plan: Patient with delayed speech, confusion. Could be attributed to urinary tract infection. Continue Rocephin 1 g daily at this time. Per son when patient had C. difficile about 2 years ago, she had a similar presentation. CT head negative for any acute infarcts. MRI brain ordered, pending. (2) Acute UTI: Plan: Continue Rocephin. (3) Depression: Plan: Per son, patient takes Venlafaxine 37.5 mg daily. Will restart at this time. Qualifiers: Depression Type: unspecified Qualified Code(s): F32.A - Depression, unspecified (4) GERD (gastroesophageal reflux disease): Plan: Per son, patient takes Pepcid daily. Will restart at this time. Qualifiers: Esophagitis presence: without esophagitis Qualified Code(s): K21.9 - Gastro-esophageal reflux disease without esophagitis Lab Results Lab results reviewed: Yes 11/19/24 15:20 11/19/24 15:20 Diagnostic Imaging Results Diagnostic Imaging Results: positive Final report reviewed
[2024-11-20] MEDS ORDERED: ACETAMINOPHEN 325 MG TABLET PO PRN (10:35)
[2024-11-20] MEDS: cefTRIAXone 1 GM VIAL IVP SCH (12:02)
[2024-11-20] MEDS ORDERED: PANTOPRAZOLE 40 MG TABLET PO PRN (12:46)
[2024-11-20 13:09] LABS: THYROID STIMULATING HORMONE 1.02 uIU/mL (0.34-5.60)
--- NOTE | 2024-11-20 13:54 | ED Physician Documentation ---
ED Addendum Addendum Addendum: 68-year-old female with a UTI, altered mental status. Has been treated with IV antibiotics. Still having significant altered mental status today. Her head CT is negative. She was signed out awaiting bed availability. A bed did become available in the hospital, discussed the case with the hospitalist who accepts This document was made in part using voice recognition software. While efforts are made to proofread this document, sound alike and grammatical errors may occur. Discharge Plan Discharge Patient Disposition: ED Place in Observation Condition: Stable Clinical Impression: Altered mental status, Confusion, Acute UTI Interventions: ED Admission Assessment Last Done: 11/20/24 10:32
[2024-11-20] MEDS: SODIUM CHLORIDE FLUSH 0.9% 10 ML SYRINGE IVP SCH (16:19)
[2024-11-20] MEDS: LORazepam 2 MG/ML VIAL IVP PRN (17:28)
--- NOTE | 2024-11-20 20:22 | MRI Report ---
PROCEDURE: MRI Brain WO INDICATIONS: AMS TECHNIQUE: Noncontrast axial T1 spin echo, axial T2 fast spin echo, sagittal and axial FLAIR, coronal T2 fast sp in echo, axial gradient echo, axial diffusion and ADC through the brain. COMPARISON: 11/19/2024 CT FINDINGS: Image quality: Diagnostic CSF spaces: Basal cisterns are patent. Lateral ventricles are symmetric. Volume: Periventricular white matter signal abnormality is commonly seen with chronic microangiopathy . Volume loss is present. These findings are mild . Brain: There is no acute infarct on diffusion images. No significant hematoma. Craniofacial structures: No significant paranasal sinus opacity. IMPRESSION: There is no acute infarct or hematoma identified on brain MRI. Reviewed by: Sajan Strauss MD on 11/20/2024 8:20 PM PST Approved by: Sajan Strauss MD on 11/20/2024 8:20 PM PST Station ID: [id number]
[2024-11-21 05:45] LABS: HCT - HEMATOCRIT 34.7 % (37.0-47.0); HGB - HEMOGLOBIN 11.1 g/dL (12.0-16.0); MEAN CORPUSCULAR HEMOGLOBIN 25.6 pg (27.0-31.0); MEAN PLATELET VOLUME 8.9 fL (7.9-10.8); RED BLOOD COUNT 4.34 10^6/uL (4.20-5.40); WHITE BLOOD COUNT 9.5 x10^3/uL (4.8-10.8)
[2024-11-21] MEDS: SODIUM CHLORIDE FLUSH 0.9% 10 ML SYRINGE IVP PRN (05:45)
[2024-11-21 06:05] LABS: CALCIUM 9.2 mg/dL (8.5-10.3); CREATININE 0.7 mg/dL (0.6-1.3); MAGNESIUM 1.9 mg/dL (1.7-2.3); POTASSIUM 2.9 mmol/L (3.5-4.5)
[2024-11-21] MEDS: POTASSIUM CHLOR 10 MEQ/100 ML 10 MEQ/100 ML BAG IV SCH (08:28)
[2024-11-21] MEDS: ONDANSETRON 4 MG/2 ML VIAL IVP PRN (08:29)
[2024-11-21] MEDS: VENLAFAXINE ER 37.5 MG CAPSULE PO SCH (08:29)
--- NOTE | 2024-11-21 09:22 | XRAY Report ---
PROCEDURE: XR Abdomen 1 V INDICATIONS: abd pain TECHNIQUE: One view of the abdomen acquired. COMPARISON: Correlation is made with CT, 04/21/2024 FINDINGS: Surgical changes and devices: None. Bowel: Bowel gas pattern is normal. Soft tissues: No suspicious abdominal calcifications. Visualized solid organ contours appear normal in size. Bones: No suspicious bony lesions. Age-appropriate degenerative changes are seen. IMPRESSION: There is a nonobstructive bowel gas pattern seen. If the symptoms persist or worsen, please consider a dedicated follow-up CT for further evaluation. Reviewed by: Nick Escobar MD on 11/21/2024 8:21 AM [facility] Approved by: Nick Escobar MD on 11/21/2024 8:21 AM [facility] Station ID: [id number]
--- NOTE | 2024-11-21 10:31 | PROVIDER PROGRESS NOTE ---
Subjective Subjective Subjective: Patient is a little more alert today. I did wake her up, and she was very drowsy but able to respond. She denies any fevers or chills. She is able to answer yes or no questions faster. Current Medications Current Medications Current Medications: Current Medications Generic Name Dose Route Start Last Admin Trade Name Freq PRN Reason Stop Dose Admin Acetaminophen 650 mg 11/20/24 10:35 Acetaminophen 325 Mg Tablet PO Q4HR PRN Pain 1 to 4, or Fever Ceftriaxone Sodium 1 gm 11/20/24 12:00 11/21/24 08:28 Ceftriaxone 1 Gm Vial IVP 1 gm DAILY JAZMIN Administration Potassium Chloride 10 meq in 100 mls @ 100 mls/hr 11/21/24 08:00 11/21/24 10:29 Potassium Chloride IV 11/21/24 11:59 100 mls/hr Q1H JAZMIN Administration Ondansetron HCl 4 mg 11/20/24 10:35 11/21/24 08:29 Ondansetron 4 Mg/2 Ml Vial IVP 4 mg Q6HR PRN Administration Nausea / Vomiting Pantoprazole Sodium 40 mg 11/20/24 12:46 Pantoprazole 40 Mg Tablet PO QDAC PRN Per Pharmacy Sodium Chloride 10 ml 11/20/24 10:35 11/21/24 05:45 Sodium Chloride Flush 0.9% 10 Ml Syringe IVP 10 ml PRN PRN Administration NEEDED PER PROVIDER ORDERS Sodium Chloride 10 ml 11/20/24 17:00 11/21/24 08:28 Sodium Chloride Flush 0.9% 10 Ml Syringe IVP 10 ml 0100,0900,1700 JAZMIN Administration Venlafaxine HCl 37.5 mg 11/21/24 09:00 11/21/24 08:29 Venlafaxine Er 37.5 Mg Capsule PO 37.5 mg DAILY JAZMIN Administration Objective Vital Signs/Intake & Output Reviewed Vital Signs: Yes Vital Signs: Vital Signs x48h Temp Pulse Resp BP Pulse Ox 11/21/24 08:00 97.9 F 71 18 135/88 H 97 11/21/24 05:00 98.2 F 87 15 129/78 97 Intake & Output: Intake & Output 11/18/24 11/19/24 11/20/24 11/21/24 23:59 23:59 23:59 23:59 Intake Total 1999 1890 / 1890 200 / 200 Output Total 0 / 0 Balance 1999 200 / 200 Weight (kg) 62.2 kg Objective General Appearance: positive No acute distress, Alert and Lethargic; negative Severe distress or Anxious Eyes Bilateral: positive Normal inspection, PERRL and EOMI ENT: positive ENT inspection nml, Pharynx nml and No signs of dehydration Neck: positive Nml inspection, Thyroid nml and No JVD Respiratory: positive Chest non-tender and No respiratory distress; negative Wheezes, Rales or Rhonchi Cardiovascular: positive Regular rate & rhythm, No murmur and No gallop; negative Tachycardia or Bradycardia Abdomen: positive Non-tender, No organomegaly and No distention; negative Rebound, Hepatomegaly, Splenomegaly or Mass Back: positive Nml inspection; negative CVA tenderness (R) or CVA tenderness (L) Skin: positive Color nml, No rash and Warm Extremities: positive Non-tender, Full ROM and Nml appearance Neurologic/Psychiatric: positive Motor nml and Weakness; negative Disoriented to time Lab Results 11/21/24 05:22 11/21/24 05:22 Other Labs: Lab Results x24hrs 11/21/24 11/19/24 Range/Units 05:22 15:20 WBC 9.5 (4.8-10.8) x10^3/uL RBC 4.34 (4.20-5.40) 10^6/uL Hgb 11.1 L (12.0-16.0) g/dL Hct 34.7 L (37.0-47.0) % MCV 80.0 L (81.0-99.0) fL MCH 25.6 L (27.0-31.0) pg MCHC 32.0 (32.0-36.0) g/dL RDW 17.0 H (12.0-15.0) % Plt Count 433 (130-450) 10^3/uL MPV 8.9 (7.9-10.8) fL Sodium 138 (135-145) mmol/L Potassium 2.9 L (3.5-4.5) mmol/L Chloride 108 (101-111) mmol/L Carbon Dioxide 22 (21-32) mmol/L Anion Gap 8.0 (6-13) BUN 20 (6-20) mg/dL Creatinine 0.7 (0.6-1.3) mg/dL Estimated GFR (MDRD) 83 L (>89) Glucose 106 H (74-104) mg/dL Calcium 9.2 (8.5-10.3) mg/dL Magnesium 1.9 (1.7-2.3) mg/dL TSH 1.02 (0.34-5.60) uIU/mL Diagnostic Imaging Diagnostic Imaging Results: positive Final report reviewed Assessment/Plan Problem List (1) Acute metabolic encephalopathy: Impression: Patient with delayed speech, confusion. Could be attributed to urinary tract infection. Continue Rocephin 1 g daily at this time. Per son when patient had C. difficile about 2 years ago, she had a similar presentation. CT head negative for any acute infarcts. MRI brain negative for any acute ischemic event. (2) Acute UTI: Impression: Continue Rocephin. (3) Depression: Impression: Per son, patient takes Venlafaxine 37.5 mg daily. Will restart at this time. Qualifiers: Depression Type: unspecified Qualified Code(s): F32.A - Depression, unspecified (4) GERD (gastroesophageal reflux disease): Impression: Per son, patient takes Pepcid daily. Will restart at this time. Qualifiers: Esophagitis presence: without esophagitis Qualified Code(s): K21.9 - Gastro-esophageal reflux disease without esophagitis
--- NOTE | 2024-11-21 16:07 | PHARMACY PROGRESS NOTE ---
Best Possible Medication History Admit Date and Time: 11/20/24 [id number] Home Medications Medication Instructions Recorded Confirmed Type lisinopril 5 mg tablet 5 mg PO DAILY hypertension #30 tabs 04/23/24 11/21/24 Rx gabapentin 300 mg capsule 300 mg PO QPM 11/21/24 11/21/24 History venlafaxine 37.5 mg 37.5 mg PO DAILY 11/21/24 11/21/24 History capsule,extended release 24 hr Processed by: Pharmacy Medications reviewed in ED?: No Medication History completed: Yes Patient Interview: Pt unable to participate Secondary Source(s): Pharmacy records [facility] Statement: As the person ultimately responsible for medication therapy, providers are able to order a medication from an existing home medication list in [facility] via the "Reconcile Routine" prior to Confirmation of that medication by landing support specialist. Such practice is discouraged except when the physician, in their clinical judgment, deems that a medical need exists for a medication without regard to previous use.
[2024-11-22 00:58] VITALS: O2SAT 98
[2024-11-22 08:00] LABS: HCT - HEMATOCRIT 37.5 % (37.0-47.0); HGB - HEMOGLOBIN 11.9 g/dL (12.0-16.0); MEAN CORPUSCULAR HEMOGLOBIN 25.5 pg (27.0-31.0); MEAN CORPUSCULAR HGB CONC 31.7 g/dL (32.0-36.0); MEAN CORPUSCULAR VOLUME 80.5 fL (81.0-99.0); RED BLOOD COUNT 4.66 10^6/uL (4.20-5.40); RED CELL DISTRIBUTION WIDTH 16.7 % (12.0-15.0); WHITE BLOOD COUNT 10.1 x10^3/uL (4.8-10.8)
[2024-11-22 08:13] LABS: CALCIUM 9.2 mg/dL (8.5-10.3); CREATININE 0.7 mg/dL (0.6-1.3); POTASSIUM 3.1 mmol/L (3.5-4.5)
[2024-11-22 08:26] VITALS: BP 119/80; TEMP 97.9
[2024-11-22] MEDS: NITROFURANTOIN MACRO 100 MG CAPSULE PO SCH (10:45)
--- NOTE | 2024-11-22 11:23 | PROVIDER PROGRESS NOTE ---
Subjective Subjective Subjective: Patient is a little more alert today. I did wake her up, and she was very drowsy but able to respond. She denies any fevers or chills. She is able to answer yes or no questions faster. Current Medications Current Medications Current Medications: Current Medications Generic Name Dose Route Start Last Admin Trade Name Freq PRN Reason Stop Dose Admin Acetaminophen 650 mg 11/20/24 10:35 Acetaminophen 325 Mg Tablet PO Q4HR PRN Pain 1 to 4, or Fever Nitrofurantoin 100 mg 11/22/24 10:00 11/22/24 10:45 Nitrofurantoin Macro 100 Mg Capsule PO 100 mg BID JAZMIN Administration Ondansetron HCl 4 mg 11/20/24 10:35 11/21/24 08:29 Ondansetron 4 Mg/2 Ml Vial IVP 4 mg Q6HR PRN Administration Nausea / Vomiting Pantoprazole Sodium 40 mg 11/20/24 12:46 Pantoprazole 40 Mg Tablet PO QDAC PRN Per Pharmacy Sodium Chloride 10 ml 11/20/24 10:35 11/21/24 05:45 Sodium Chloride Flush 0.9% 10 Ml Syringe IVP 10 ml PRN PRN Administration NEEDED PER PROVIDER ORDERS Sodium Chloride 10 ml 11/20/24 17:00 11/22/24 08:58 Sodium Chloride Flush 0.9% 10 Ml Syringe IVP 10 ml 0100,0900,1700 JAZMIN Administration Venlafaxine HCl 37.5 mg 11/21/24 09:00 11/22/24 08:58 Venlafaxine Er 37.5 Mg Capsule PO 37.5 mg DAILY JAZMIN Administration Objective Vital Signs/Intake & Output Reviewed Vital Signs: Yes Vital Signs: Vital Signs x48h Temp Pulse Resp BP Pulse Ox 11/22/24 08:00 97.9 F 78 18 119/80 98 Intake & Output: Intake & Output 11/19/24 11/20/24 11/21/24 11/22/24 23:59 23:59 23:59 23:59 Intake Total 1999 760 / 760 Output Total 0 / 0 50 / 50 Balance 1999 760 / 760 -50 / -50 Weight (kg) 62.2 kg Objective General Appearance: positive No acute distress, Alert and Lethargic; negative Severe distress or Anxious Eyes Bilateral: positive Normal inspection, PERRL and EOMI ENT: positive ENT inspection nml, Pharynx nml and No signs of dehydration Neck: positive Nml inspection, Thyroid nml and No JVD Respiratory: positive Chest non-tender and No respiratory distress; negative Wheezes, Rales or Rhonchi Cardiovascular: positive Regular rate & rhythm, No murmur and No gallop; negative Tachycardia or Bradycardia Abdomen: positive Non-tender, No organomegaly and No distention; negative Rebound, Hepatomegaly, Splenomegaly or Mass Back: positive Nml inspection; negative CVA tenderness (R) or CVA tenderness (L) Skin: positive Color nml, No rash and Warm Extremities: positive Non-tender, Full ROM and Nml appearance Neurologic/Psychiatric: positive Motor nml and Weakness; negative Disoriented to time Lab Results 11/22/24 07:53 11/22/24 07:53 Other Labs: Lab Results x24hrs 11/22/24 11/21/24 Range/Units 07:53 14:04 WBC 10.1 (4.8-10.8) x10^3/uL RBC 4.66 (4.20-5.40) 10^6/uL Hgb 11.9 L (12.0-16.0) g/dL Hct 37.5 (37.0-47.0) % MCV 80.5 L (81.0-99.0) fL MCH 25.5 L (27.0-31.0) pg MCHC 31.7 L (32.0-36.0) g/dL RDW 16.7 H (12.0-15.0) % Plt Count 489 H (130-450) 10^3/uL MPV 9.0 (7.9-10.8) fL Sodium 137 (135-145) mmol/L Potassium 3.1 L 3.6 (3.5-4.5) mmol/L Chloride 108 (101-111) mmol/L Carbon Dioxide 21 (21-32) mmol/L Anion Gap 8.0 (6-13) BUN 20 (6-20) mg/dL Creatinine 0.7 (0.6-1.3) mg/dL Estimated GFR (MDRD) 83 L (>89) Glucose 97 (74-104) mg/dL Calcium 9.2 (8.5-10.3) mg/dL Diagnostic Imaging Diagnostic Imaging Results: positive Final report reviewed Assessment/Plan Problem List (1) Acute metabolic encephalopathy: Impression: Patient with delayed speech, confusion. Could be attributed to urinary tract infection. Urine culture sensitivities came back for ESBL E. coli, not sensitive to Rocephin. Will start her on Macrobid as she does not need any IV antibiotics at this time. Per son when patient had C. difficile about 2 years ago, she had a similar presentation. CT head negative for any acute infarcts. MRI brain negative for any acute ischemic event. (2) UTI due to extended-spectrum beta lactamase (ESBL) producing Escherichia coli: Impression: Urine culture sensitivities came back for ESBL E. coli, not sensitive to Rocephin. Will start her on Macrobid as she does not need any IV antibiotics at this time. (3) Depression: Impression: Per son, patient takes Venlafaxine 37.5 mg daily. Will restart at this time. Qualifiers: Depression Type: unspecified Qualified Code(s): F32.A - Depression, unspecified (4) GERD (gastroesophageal reflux disease): Impression: Per son, patient takes Pepcid daily. Will restart at this time. Qualifiers: Esophagitis presence: without esophagitis Qualified Code(s): K21.9 - Gastro-esophageal reflux disease without esophagitis
--- NOTE | 2024-11-22 14:38 | Discharge Summary ---
"Discharge Summary Admit Date: 11/20/24 Discharge Date: 11/22/24 Discharging Provider: Dr. Jorge Auguste Primary Care Provider: Georges Stone MD Code Status: Attempt Resuscitation Discharge Facility Name: Home DIAGNOSES Admission Diagnoses: Acute metabolic encephalopathy Acute UTI Depression GERD Discharge Diagnoses with Status of Each Condition: Acute metabolic encephalopathyresolved. Patient initially presented with delayed speech, confusion. CT head was negative, MRI head was negative. Likely was due to metabolic derangements due to ESBL E. coli UTI. UTI due to ESBL producing E. coliurine culture sensitivities came back sensitive for Macrobid. Will discharge on 6 more days of antibiotics for a 7 day course. Depressioncontinue home medications. GERDcontinue home medications. HPI History of Present Illness: Patient is a 68-year-old female with a history of depression, GERD who presents for confusion. Patient is following commands, and is able to answer yes or no questions, but is taking a few minutes to answer. She is very slow to respond. As such, her son was spoken with. Baltazar Young, [phone], lives with her. Over the weekend, she stated that she was starting to have symptoms of a urinary tract infection. She stated that she was in a call her primary care provider and get antibiotics, but this was never done. Over the next few days, she began to feel little worse. Her son noticed that she was confused over the last couple days, and as such, decided to bring her in. He notes that she had C. difficile approximately 2 years ago, and had a similar mental status change at that time. In the emergency room, patient was vitally stable; her blood pressure was elevated in the 160s to 170s range, heart rate was 70s, she was breathing with a respiratory rate of 16, saturating 97% on room air. She was also afebrile. Lab work was reviewedshe had no leukocytosis. Her creatinine was within normal limits. Her glucose was mildly elevated. She also had a mild high anion gap of 16. Her calcium was mildly elevated at 10.6 as well UA was positive for WBCs, bacteria. Urine culture was sent. CT head showed no acute infarcts. IV fluids were given. She was started on Rocephin. MRI was ordered. She is admitted for further workup of altered mental status. CONSULTS | PROCEDURES Consultations: - Procedures: CT head, MRI brain, abdominal x-ray, urine culture HOSPITAL COURSE Hospital Course: Patient is a 68-year-old female with a history of depression and GERD who presented with altered mental status. She was very slow to respond, and did not respond to all inquiries. CT head initially was done which was negative, this was followed by MRI which also was negative for any acute strokes or bleeds. She was found to have a urinary tract infection. Urine culture today grew ESBL E. coli. She switched from Rocephin to Macrobid. She woke up today and is back at her baseline mentation. She is alert and oriented x 4. I also spoke with the son, who she lives with, and he will keep an eye on her. Will discharge her home with 6 more days of Macrobid to complete a 7-day course. ALLERGIES Allergies Allergy/AdvReac Type Severity Reaction Status Date / Time No Known Drug Allergies Allergy Verified 11/19/24 14:45 MEDICATIONS Ambulatory Orders Medication Instructions Recorded Confirmed lisinopril 5 mg tablet 5 mg PO DAILY hypertension #30 tabs 04/23/24 11/21/24 gabapentin 300 mg capsule 300 mg PO QPM 11/21/24 11/21/24 venlafaxine 37.5 mg 37.5 mg PO DAILY 11/21/24 11/21/24 capsule,extended release 24 hr nitrofurantoin 100 mg PO BID 6 days #12 caps 11/22/24 monohydrate/macrocrystals 100 mg capsule PHYSICAL EXAM AT DISCHARGE General Appearance: positive No acute distress and Alert; negative Anxious Eyes Bilateral: positive Normal inspection, EOMI and Other (Pupils remain mildly dilated, reactive to light) ENT: positive ENT inspection nml, Pharynx nml and No signs of dehydration Neck: positive Nml inspection, Thyroid nml and No JVD Respiratory: positive Chest non-tender, No respiratory distress and Breath sounds nml Cardiovascular: positive Regular rate & rhythm, No murmur and No gallop Peripheral Pulses: positive 2+ Abdomen: positive Non-tender, No organomegaly and No distention; negative Guarding, Rebound, Hepatomegaly, Splenomegaly or Mass Back: positive Nml inspection; negative CVA tenderness (R) or CVA tenderness (L) Skin: positive Color nml, No rash, Warm and Dry Extremities: positive Non-tender, Full ROM and Nml appearance Neurologic/Psychiatric: positive Oriented x3, Motor nml and Mood/affect nml; negative Facial droop or Slurred/abnml speech LABS 11/22/24 07:53 11/22/24 07:53 DIAGNOSTIC IMAGING Diagnostic Imaging Results: Final report reviewed QUALITY (Female Hip Fx Only) Was patient sent home on osteoporosis medication?: No FOLLOW UP Follow Up: Follow-up with primary care provider in 1 to 2 weeks. TIME SPENT Time Spent in Discharge (Minutes): 35 Discharge Plan Discharge Patient Disposition: Home, Self Care Condition: Stable Prescriptions: New nitrofurantoin monohyd/m-cryst 100 mg Capsule 100 mg PO BID 6 Days Qty: 12 0RF Continued lisinopril 5 MG tablet 5 mg PO DAILY Qty: 30 1RF venlafaxine 37.5 mg capsule,extended release 24hr 37.5 mg PO DAILY gabapentin 300 mg capsule 300 mg PO QPM Activity Restrictions: Activity as Tolerated Diet: Regular Health Concerns: You came in because you were having some confusion. You were found to have a urinary tract infection. We started you on antibiotics for this. In the meantime, we also ruled out other causes of your confusion. We got a CT scan of your head, as well as an MRI of your brainboth of these were negative, did not show any strokes or bleeds. It appears your confusion has resolved now that you are on appropriate antibiotics. You will need to complete 6 more days of oral antibiotics. I sent this to your pharmacy, [facility]. If you notice any fevers, chills, worsening confusion, any urinary symptoms, please return to the emergency room. We are glad you are feeling better, and are back to your normal self. Thank you for letting us take care of you! Print Language: Malaysian Patient Instructions: UTI, ED UTI Cystitis Female Stand Alone Forms: PCP List Follow-up Care: SAVITA HOGAN ARNP [Primary Care Provider] -"
== END 2024-11-22 16:25 | disposition home or self-care (01) | DRG 689 ==
LOC: MS3 14:29 → ED 14:29 → MS3 11-20 10:32
PROVIDERS: ADMIT Internal Medicine; ATTEND Internal Medicine

== ENCOUNTER 2024-12-12 15:46 | Inpatient (IN) ==
[2024-12-12 16:26] LABS: BASOPHILS % (AUTO) 0.1 %; HCT - HEMATOCRIT 37.1 % (37.0-47.0); HGB - HEMOGLOBIN 11.8 g/dL (12.0-16.0); LYMPHOCYTES # (AUTO) 1.9 10^3/uL (1.5-3.5); LYMPHOCYTES % (AUTO) 23.5 %; MEAN CORPUSCULAR HEMOGLOBIN 25.8 pg (27.0-31.0); MEAN CORPUSCULAR HGB CONC 31.8 g/dL (32.0-36.0); MEAN PLATELET VOLUME 8.9 fL (7.9-10.8); MONOCYTES # (AUTO) 0.3 10^3/uL (0.0-1.0); MONOCYTES % (AUTO) 3.5 %; NEUTROPHILS % (AUTO) 72.4 %; PLT - PLATELET COUNT 506 10^3/uL (130-450); RED BLOOD COUNT 4.58 10^6/uL (4.20-5.40); RED CELL DISTRIBUTION WIDTH 17.5 % (12.0-15.0); WHITE BLOOD COUNT 8.2 x10^3/uL (4.8-10.8)
[2024-12-12 16:45] LABS: ACETAMINOPHEN 0.1 ug/mL; ALBUMIN 4.4 g/dL (3.2-5.5); ALBUMIN/GLOBULIN RATIO 1.3 (1.0-2.2); ALKALINE PHOSPHATASE 103 IU/L (42-121); ALT ALANINE AMINOTRANSFERASE 9 IU/L (10-60); AST ASPARTATE AMINOTRANSFERASE 16 IU/L (10-42); BUN - BLOOD UREA NITROGEN 20 mg/dL (6-20); CALCIUM 9.9 mg/dL (8.5-10.3); CARBON DIOXIDE - CO2 23 mmol/L (21-32); CHLORIDE 107 mmol/L (101-111); CK- CREATINE KINASE 23 IU/L (30-223); CREATININE 0.7 mg/dL (0.6-1.3); ETOH - ETHANOL < 10.0 mg/dL; GFR - MDRD 83 (>89); GLUCOSE 117 mg/dL (74-104); MAGNESIUM 2.2 mg/dL (1.7-2.3); SODIUM 141 mmol/L (135-145); TOTAL PROTEIN 7.8 g/dL (6.4-8.9)
[2024-12-12 16:48] LABS: LIPASE < 10 U/L (11-82); SALICYLATE < 1.5 mg/dL
[2024-12-12 17:06] LABS: THYROID STIMULATING HORMONE 0.45 uIU/mL (0.34-5.60)
--- NOTE | 2024-12-12 17:10 | ED Physician Documentation ---
History of Present Illness Stated complaint Stated Complaint: AMS Chief complaint Chief Complaint: General History obtained from History obtained from: EMS Additonal information Additional information: 68-year-old female brought in by ambulance for altered mental status. Patient unable to give any history. The family states she was taking a medication from [facility] that she had ordered online. They gave the medication to EMS. Medication is gabapentin and tapentadol Apparently received Narcan with EMS that did improve her awakeness but is still altered no falls. No trauma. No reported illnesses Recently admitted to the hospital for an ESBL UTI [place] Coma Scale Assess Eye opening: Spontaneous Verbal response: Confused Motor response: Obeys Commands Total score: 14 Review of Systems Status of ROS: unobtainable due to mental status Meds/Allgy Home Medications Ambulatory Orders Medication Instructions Recorded Confirmed lisinopril 5 mg tablet 5 mg PO DAILY hypertension #30 tabs 04/23/24 11/21/24 gabapentin 300 mg capsule 300 mg PO QPM 11/21/24 11/21/24 venlafaxine 37.5 mg 37.5 mg PO DAILY 11/21/24 11/21/24 capsule,extended release 24 hr nitrofurantoin 100 mg PO BID 6 days #12 caps 11/22/24 monohydrate/macrocrystals 100 mg capsule Allergies Allergies Allergy/AdvReac Type Severity Reaction Status Date / Time No Known Drug Allergies Allergy Verified 12/12/24 15:57 PFSH Active Problems All Active Problems (Updated 12/12/24 @ 19:24 by James Ponce MD) Opiate abuse, continuous (Acute) Acute alteration in mental status (Acute) UTI due to extended-spectrum beta lactamase (ESBL) producing Escherichia coli (Acute) Depression (Acute) Social History Social History Smoking Status: Never smoker If you are a former smoker, when did you quit? (Date/Year): 2013 Do you dip or chew tobacco?: No Do you vape?: No Living arrangement: At home Living Condition: With family Relationship: POLST Patient has POLST: No POLST Status: Full Code (has advanced directive to be DNR if terminal or vegetative) Exam Constitutional normal general appearance and no apparent distress HENMT normocephalic, head/scalp atraumatic, TMs normal bilaterally and oral mucous membranes normal Eyes PERRL and EOMs intact bilaterally Neck/C-Spine trachea midline and supple Respiratory breath sounds equal bilaterally and normal respiratory effort Cardiovascular normal heart rate noted and regular rhythm noted 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 Results Vitals Vitals: Vital Signs - 24 hr 12/12/24 15:57 12/12/24 17:02 12/12/24 17:15 Temperature 36.8 C Temperature Source Tympanic Pulse Rate 104 H 104 H 104 H Respiratory Rate 22 20 20 Blood Pressure 149/102 H 115/86 115/86 O2 Saturation 99 99 100 O2 Source Room air Room air Room air Pain Intensity 0 0 0 12/12/24 17:30 12/12/24 18:00 12/12/24 18:15 Temperature 36.8 C 36.8 C 36.8 C Temperature Source Tympanic Tympanic Tympanic Pulse Rate 99 88 89 Respiratory Rate 20 16 16 Blood Pressure 115/86 116/82 112/80 O2 Saturation 100 100 98 O2 Source Room air Room air Room air Pain Intensity 0 0 0 12/12/24 18:30 Temperature 36.4 C L Temperature Source Axillary Pulse Rate 117 H Respiratory Rate 20 Blood Pressure 136/101 H O2 Saturation 100 O2 Source Room air Pain Intensity 4 Oxygen O2 Source Room air EKG (time done) 1620: EKG releavant findings:: EKG personally interpreted by author of this note. Relevant findings are: Rate: Other (105 bpm. Sinus tachycardia. Likely LVH. Normal [place] interval. No ST changes suggestive of ischemia. Normal QRS.) Labs Labs: Laboratory Tests 12/12/24 16:22 WBC 8.2 RBC 4.58 Hgb 11.8 L Hct 37.1 MCV 81.0 MCH 25.8 L MCHC 31.8 L RDW 17.5 H Plt Count 506 H MPV 8.9 Neut # (Auto) 6.0 Lymph # (Auto) 1.9 [place] # (Auto) 0.3 Eos # (Auto) 0.0 Baso # (Auto) 0.0 Absolute Nucleated RBC 0.00 Nucleated RBC % 0.0 Sodium 141 Potassium 4.0 Chloride 107 Carbon Dioxide 23 Anion Gap 11.0 BUN 20 Creatinine 0.7 Estimated GFR (MDRD) 83 L Glucose 117 H Calcium 9.9 Magnesium 2.2 Total Bilirubin 1.0 AST 16 ALT 9 L Alkaline Phosphatase 103 Total Creatine Kinase 23 L Total Protein 7.8 Albumin 4.4 Globulin 3.4 Albumin/Globulin Ratio 1.3 Lipase < 10 L TSH 0.45 Salicylates < 1.5 Acetaminophen 0.1 Ethyl Alcohol < 10.0 PD Medical Decision Making ED course Complexity details: reviewed old records and reviewed results ED course: Patient with altered mental status. Confused. Likely secondary to medication toxicity. Did seem to improve with Narcan via EMS. Given IV fluids. No significant lab abnormalities. She is improving slightly in the emergency department and is speaking more but is still confused and slow to respond to questions. At the time of signout, the patient is pending a urinalysis, tox screen and reassessment. Patient signed out to Dr. Goddard pending reevaluation. See his note for further care. The tapentadol tabs are 100 mg tabs, equal to approximately 20 mg of oxycodone. There are 18 missing. Unknown over what period of time she has had this medication. This document was made in part using voice recognition software. While efforts are made to proofread this document, sound alike and grammatical errors may occur. Discharge Plan Discharge Clinical Impression: Acute alteration in mental status, Opiate abuse, continuous Prescriptions: No Action lisinopril 5 MG tablet 5 mg PO DAILY Qty: 30 1RF venlafaxine 37.5 mg capsule,extended release 24hr 37.5 mg PO DAILY gabapentin 300 mg capsule 300 mg PO QPM nitrofurantoin monohyd/m-cryst 100 mg Capsule 100 mg PO BID 6 Days Qty: 12 0RF Print Language: Bahraini Stand Alone Forms: PCP List
[2024-12-12 20:51] LABS: BILIRUBIN,URINE NEGATIVE (NEGATIVE); GLUCOSE, URINE (UA) NEGATIVE (NEGATIVE); KETONES,URINE (UA) 15 mg/dL (NEGATIVE); LEUKOCYTE ESTERASE, URINE NEGATIVE (NEGATIVE); NITRITE,URINE NEGATIVE (NEGATIVE); OCCULT BLOOD,URINE TRACE-INTA (NEGATIVE); PROTEIN,URINE TRACE mg/dL (NEGATIVE); UROBILINOGEN,URINE 1 (NORMAL) E.U./dL (NORMAL)
[2024-12-12 20:54] LABS: CLARITY,URINE CLEAR (CLEAR)
[2024-12-12 21:02] LABS: AMPHETAMINE SCREEN,URINE NEGATIVE (NEGATIVE); BARBITURATE SCREEN,UR NEGATIVE (NEGATIVE); BENZODIAZEPINES SCREEN, URINE NEGATIVE (NEGATIVE); BUPRENORPHINE SCREEN, URINE NEGATIVE (NEGATIVE); COCAINE SCREEN URINE NEGATIVE (NEGATIVE); METHADONE SCREEN, URINE NEGATIVE (NEGATIVE); METHAMPHETAMINES SCREEN, URINE NEGATIVE (NEGATIVE); OPIATE SCREEN, URINE NEGATIVE (NEGATIVE); OXYCODONE SCREEN, URINE NEGATIVE (NEGATIVE); THC CANNABINOID SCREEN, URINE NEGATIVE (NEGATIVE); TRICYCLIC ANTIDEPRESSANT,URINE NEGATIVE (NEGATIVE)
--- NOTE | 2024-12-12 22:35 | ED Physician Documentation ---
ED Addendum Addendum Addendum: I received signout/turnover of care on this patient from Dr. Ponce; please see his note for complete H&P. In brief, patient was brought in by ambulance for AMS. Unremarkable blood tests, urinalysis. Undetectable serum ethanol level and UDS is negative. However, per sign-out, patient reportedly has been taking a medication she is obtained online that is an opiate equivalent (tapentadol). This seems the most likely cause of the altered mental status. At the time of turnover of care, the plan is to observe patient until such time that she is AAOx3 and can be reevaluated regarding appropriateness of disposition. At this time (23:14), I reevaluated patient. She is sleepy but awakens to gentle tactile (shoulder). She occasionally nods her head to my questions but answers none of them except for name; with repeated prompting, she eventually tells me her name is "Kathia". However, when I ask her full name, she just repeatedly answers "Kathia". When asked her where she is or what year it is, she simply nods and provides no answers. CTH, CTA head/neck undertaken and there are no concerning nor diagnostic findings on these studies. Unfortunately, throughout the remainder of my overnight shift, the patient's mental status did not change from my initial exam. Early in my shift, the patient was increasingly getting out of bed; bed alarm would go off, ED RN would redirect patient back into the bed. Patient apparently asked the ED RN for something to help her with sleep. I ordered IV Ativan. Before this could be given, the patient then removed her IV. Thus, she was given 1 mg Ativan IM. Care of patient turned over to oncoming ED physician (Dr. Miner) pending disposition. Note that there were not beds available at [facility] throughout my shift. Discharge Plan Discharge Clinical Impression: Acute alteration in mental status, Opiate abuse, continuous Prescriptions: No Action lisinopril 5 MG tablet 5 mg PO DAILY Qty: 30 1RF venlafaxine 37.5 mg capsule,extended release 24hr 37.5 mg PO DAILY gabapentin 300 mg capsule 300 mg PO QPM nitrofurantoin monohyd/m-cryst 100 mg Capsule 100 mg PO BID 6 Days Qty: 12 0RF Print Language: Sinhala Stand Alone Forms: PCP List
[2024-12-12] MEDS ORDERED: iohexoL-300 100 ML VIAL ONE (23:21)
[2024-12-13] MEDS: iohexoL-300 100 ML VIAL IVP ONE (00:04)
--- NOTE | 2024-12-13 00:08 | CT Report ---
PROCEDURE: CT Head WO INDICATIONS: AMS TECHNIQUE: Noncontrast 4.5 mm thick angled axial sections acquired from the foramen magnum to the vertex. For r adiation dose reduction, the following was used: automated exposure control, adjustment of mA and/or kV according to patient size. COMPARISON: MRI brain without contrast 11/20/2024, CT head without contrast 11/19/2024 FINDINGS: Image quality: Excellent. CSF spaces: Basal cisterns are patent. No extra-axial fluid collections. Ventricles are normal in size and shape. Brain: No midline shift. No intracranial masses or hemorrhage. [place]-white matter interface is norm al. Skull and face: Calvarium and visualized facial bones are intact, without suspicious lesions. Sinuses: Visualized sinuses and mastoids are clear. IMPRESSION: No acute intracranial pathology. Reviewed by: Chago James MD on 12/13/2024 12:07 AM PST Approved by: Chago James MD on 12/13/2024 12:07 AM PST Station ID: [id number]
--- NOTE | 2024-12-13 00:12 | CT Report ---
PROCEDURE: CT Angio Head/Neck INDICATIONS: AMS TECHNIQUE: After the administration of intravenous contrast, 1 mm thick sections acquired from the aortic arch t hrough the [place]. 3-dimensional qrhaxmb-[id number]-lmyhktyfrd (MIP) and/or volume renderin g reformats were acquired of the central intracranial vasculature and neck separately. For radiation dose reduction, the following was used: automated exposure control, adjustment of mA and/or kV acco rding to patient size. CONTRAST: 100 ML OMNI 300 COMPARISON: None. FINDINGS: Image quality: Diagnostic. HEAD CT ANGIOGRAPHY: Anterior circulation: Intracranial internal carotid arteries are normal in size and flow. The flow within the paired anterior cerebral arteries is normal and symmetric. The flow within the middle cer ebral arteries is normal and symmetric. The anterior communicating artery is seen. No aneurysms are seen. Posterior circulation: Visualized portions of the vertebral arteries demonstrate normal caliber, and join to form a normal appearing basilar artery. Flow within the posterior cerebral arteries is norm al and symmetric. No aneurysms are seen. NECK CT ANGIOGRAPHY: Carotid system: The great vessels demonstrate a conventional anatomy as they arise from the aortic a rch. The origins of the common carotid arteries appear patent. The common carotid arteries demonstr ate normal caliber and courses. The bifurcation regions are both widely patent. The internal caroti d arteries demonstrate normal calibers and courses. Posterior circulation: The origins of the vertebral arteries both appear widely patent. The more simmons perior extracranial portions of both vertebral arteries also demonstrate normal courses and calibers. They join to form a normal appearing basilar artery. Soft tissues: Visualized neck soft tissues demonstrate no suspicious abnormalities. Bones: No suspicious bony lesions. Visualized cervical spine appears normally aligned. IMPRESSION: No large vessel occlusion, dissection or aneurysm in the visualized head and neck arterial vasculatur e. The estimate of stenosis included in the report of the imaging study was calculated using the NASCET method Reviewed by: Chago James MD on 12/13/2024 12:11 AM PST Approved by: Chago James MD on 12/13/2024 12:11 AM PST Station ID: [id number]
[2024-12-13] MEDS: LORazepam 2 MG/ML VIAL IVP STA (03:07)
--- NOTE | 2024-12-13 18:20 | ED Physician Documentation ---
ED Addendum Addendum Addendum: Kathia Young is a 68-year-old female who presents to the emergency department with altered mental status after taking Nucynta. She was unable to answer questions appropriately on her initial evaluation and she has a prolonged recovery but slowly she begins to talk more and she acknowledges that she likely took too much of the Nucynta. Her recovery has been slow and she remains in the emergency department for further metabolism at shift change. She appears dry and she is administered oral fluid as she has pulled her IV out and refused a second IV. Discharge Plan Discharge Clinical Impression: Acute alteration in mental status, Opiate abuse, continuous Prescriptions: No Action lisinopril 5 MG tablet 5 mg PO DAILY Qty: 30 1RF venlafaxine 37.5 mg capsule,extended release 24hr 37.5 mg PO DAILY gabapentin 300 mg capsule 300 mg PO QPM nitrofurantoin monohyd/m-cryst 100 mg Capsule 100 mg PO BID 6 Days Qty: 12 0RF Print Language: Arabic Stand Alone Forms: PCP List
[2024-12-13] MEDS: SODIUM CHLORIDE 0.9% 1,000 ML IV STA (20:57)
--- NOTE | 2024-12-14 12:03 | ED Physician Documentation ---
ED Addendum Addendum Addendum: I reevaluated the patient this morning she has not been in the emergency department for approximately 42 hours. The patient knows her name but cannot tell me her date of , the year or where she is. Does not know why she is here. Still appears significantly altered. Labs are redrawn. Given that she has not improved over what would be an expected length of time for a toxicology ingestion from the tapentadol, discussed the case with the hospitalist, Dr. English who accepts. A head CT was performed along with an angio head and neck on 12 13 which did not show acute abnormalities. This document was made in part using voice recognition software. While efforts are made to proofread this document, sound alike and grammatical errors may occur. Discharge Plan Discharge Patient Disposition: 67 [facility] DC/Xfer Condition: Stable Clinical Impression: Acute alteration in mental status, Opiate abuse, continuous Prescriptions: No Action lisinopril 5 MG tablet 5 mg PO DAILY Qty: 30 1RF venlafaxine 37.5 mg capsule,extended release 24hr 37.5 mg PO DAILY gabapentin 300 mg capsule 300 mg PO QPM nitrofurantoin monohyd/m-cryst 100 mg Capsule 100 mg PO BID 6 Days Qty: 12 0RF Print Language: Macedonian Stand Alone Forms: PCP List
[2024-12-14 12:22] LABS: HCT - HEMATOCRIT 36.7 % (37.0-47.0); HGB - HEMOGLOBIN 11.7 g/dL (12.0-16.0); LYMPHOCYTES # (AUTO) 2.4 10^3/uL (1.5-3.5); LYMPHOCYTES % (AUTO) 33.2 %; MEAN CORPUSCULAR HEMOGLOBIN 26.1 pg (27.0-31.0); MEAN CORPUSCULAR HGB CONC 31.9 g/dL (32.0-36.0); MEAN CORPUSCULAR VOLUME 81.9 fL (81.0-99.0); MEAN PLATELET VOLUME 9.1 fL (7.9-10.8); MONOCYTES # (AUTO) 0.6 10^3/uL (0.0-1.0); MONOCYTES % (AUTO) 8.9 %; NEUTROPHILS # (AUTO) 4.1 10^3/uL (1.5-6.6); NEUTROPHILS % (AUTO) 57.6 %; PLT - PLATELET COUNT 482 10^3/uL (130-450); RED BLOOD COUNT 4.48 10^6/uL (4.20-5.40); WHITE BLOOD COUNT 7.1 x10^3/uL (4.8-10.8)
[2024-12-14 12:38] LABS: ALBUMIN 4.1 g/dL (3.2-5.5); ALBUMIN/GLOBULIN RATIO 1.2 (1.0-2.2); BILIRUBIN,TOTAL 1.1 mg/dL (0.2-1.0); CALCIUM 9.4 mg/dL (8.5-10.3); CREATININE 0.7 mg/dL (0.6-1.3); POTASSIUM 3.3 mmol/L (3.5-4.5); TOTAL PROTEIN 7.5 g/dL (6.4-8.9)
[2024-12-14] MEDS ORDERED: SODIUM CHLORIDE FLUSH 0.9% 10 ML SYRINGE IVP PRN (12:44)
[2024-12-14] MEDS ORDERED: ONDANSETRON ODT 4 MG TABLET TL PRN (12:44)
[2024-12-14] MEDS ORDERED: ONDANSETRON 4 MG/2 ML VIAL IVP PRN (12:44)
[2024-12-14] MEDS ORDERED: ACETAMINOPHEN 325 MG TABLET PO PRN (12:44)
--- NOTE | 2024-12-14 12:55 | HISTORY & PHYSICAL EXAMINATION ---
History of Present Illness Admitted From Admitted From:: Emergency Department History Obtained From Records Reviewed: ER documentation History obtained from: ER documentation 12/12-12/14 Exam Limitations: Patient AMS History of Present Illness HPI Comment/Other: Patient is a 68 year old female with history of c.diff, GERD, anxiety, depression, substance abuse that presents with altered mental status. Patient is unable to give a history due to altered mental status.Patient history acquired via phone call with patient's son, who lives with her. He states that 3 days ago, she was having trouble sleeping and stated she did not feel well. She had episodes of vomiting and diarrhea. Later that day, he found her sitting beside the bed, able to get on the bed, but unable to tell him her name, so he called EMS. He found one package of unprescribed gabapentin, multiple packages of tapentadol, an opiate equivalent she obtained from online, which she has a history of abusing. She has been hospitalized previously for use tapentadol, and has associated vomiting and diarrhea with use. Son states it takes her about 3-5 days to recover after being hospitalized for drug use, and feels that it has taken her longer to recover each time. Her last hospitalization for drug use was in April of 2024, after which son discussed cessation with her. He believes she restarted illicit drug use in 08/2024. He notes that she has history of anxiety, depression, and has lost her spouse, mother, and dog in the last couple years and believes she is coping with drugs. At baseline she does ADLs independently, but he does IADLs for her. She was given Narcan by EMS 12/12/24 which seemed to improve mental status. Per ER notes, mental status appears to wax and wane as she had a period yesterday when she acknowledged her use of tapentadol . She was given a dose of Ativan yesterday in ER. She was admitted one month ago, 11/20/24 for a UTI with associated AMS, which in retrospect may have been due to drug use. MRI negative 11/20/24. ER workup including UA, CT head, CT angio head/neck are all negative. Mild microcytic anemia, mild hypokalemia on most recent labs. WBC WNL. On exam, patient is able to follow commands. She knows the year not the month, her first name but not her last name, she knows she is in a hospital but does not know the town or state. She does not know which town she lives in or her birthday. She knows that she lives with her son Baltazar. She is able to read and tell the time. Ny Wiley is her PCP, son is DPOA. Per son, she is DNR, DNI. Meds/Allgy Home Medications Ambulatory Orders Medication Instructions Recorded Confirmed gabapentin 300 mg capsule 300 mg PO QPM 11/21/24 12/14/24 venlafaxine 37.5 mg 37.5 mg PO DAILY 11/21/24 12/14/24 capsule,extended release 24 hr naproxen sodium 220 mg tablet 220 mg PO DAILY PRN pain 12/14/24 12/14/24 (Aleve) omeprazole 20 mg capsule,delayed 20 mg PO DAILY PRN heartburn 12/14/24 12/14/24 release Allergies Allergies Allergy/AdvReac Type Severity Reaction Status Date / Time No Known Drug Allergies Allergy Verified 12/12/24 15:57 PFS Active Problems All Active Problems (Updated 12/14/24 @ 18:47 by Casi English MD) Hypokalemia (Acute) Opiate abuse, continuous (Acute) Acute alteration in mental status (Acute) UTI due to extended-spectrum beta lactamase (ESBL) producing Escherichia coli (Acute) Depression (Acute) Medical History Medical History Coffee ground emesis w episode of obtundation due to benzo OD and nucynta. To get get EGD in [place] and ? did Hepatitis C Kidney stones Osteoarthritis causing lower back pain Depression with anxiety OD 11/2022, OD 04/2024 w opioid Tapentadol. Alcohol abuse abuse in teens, sober by 2013, but and went back to abuse 2022. also took husbands temazepam causing obtundation. Surgical History Surgical History (Updated 12/14/24 @ 18:44 by Casi English MD) S/P PAULO-BSO H/O arthroscopic knee surgery L knee Social History Social History Smoking Status: Unknown if ever smoked If you are a former smoker, when did you quit? (Date/Year): 2013 Do you dip or chew tobacco?: No Do you vape?: No Living arrangement: At home Living Condition: Alone and With family Relationship: Substance Use: opiods/painkillers POLST Patient has POLST: No POLST Status: DNR Review of Systems Status of ROS: unobtainable due to medical condition Eyes Denies: Blurry vision Cardiovascular Denies: chest pain Gastrointestinal Denies: Abdominal pain Neurological Denies: Headache Exam Constitutional abnormal body habitus (cachectic) HENMT normocephalic and head/scalp atraumatic Eyes PERRL, EOMs intact bilaterally and conjunctivae normal Neck/C-Spine visual inspection normal and trachea midline Respiratory breath sounds equal bilaterally and normal respiratory effort Cardiovascular normal heart rate noted, regular rhythm noted, gallop noted, rub noted and murmur noted Extremities normal to inspection, normal to palpation and no tenderness Neurology sales and marketing engineer II-XII intact and speech abnormality noted (slow) Psychiatry mental status abnormal and orientation abnormal (oriented to year, hospital setting, first name only) Skin skin color normal Conclusion/Plan Problem List (1) Acute alteration in mental status: Plan: * Acute AMS likely secondary to tapentadol opiate use. * Patient oriented to year, first name, being in a hospital but can give no other details. * Slow but clear speech * Has not returned to baseline after 48 hours in ER * Patient has history of AMS related to tapentadol abuse, usually takes her 3-5 days for mental status to return to baseline. * Urine drug screen negative * UA negative, CT head negative, CTA head neck negative, MRI 11/20/24 negative * Continue to monitor mental status, pending evaluation from OT * Consider future transfer to SNF given multiple episodes of AMS (2) Opiate abuse, continuous: Plan: * Patient has history of tapentadol abuse with associated AMS, vomiting, and diarrhea per son * Urine drug screen negative * Patient oriented to year, first name, being in a hospital but can give no other details. * Slow but clear speech * Await return of normal mental status (3) Hypokalemia: Plan: * Mild, 3.3 on last lab * Like due to multiple episodes of vomiting and diarrhea likely secondary to opiate abuse * Zofran 4mg ordered PRN * Continue to trend potassium Plan DNR, DNI. Pietro Ledesma is DPOA Lab Results Lab results reviewed: Yes 12/14/24 12:13 12/14/24 12:13 Diagnostic Imaging Results Diagnostic Imaging Results: positive Final report reviewed Core Measures Anticipated LOS I expect patient to be DC'd or transferred within 96 hours.: Yes DVT/VTE - Prophylaxis VTE/DVT Device ordered at admit?: Yes
--- NOTE | 2024-12-14 14:30 | PHARMACY PROGRESS NOTE ---
Best Possible Medication History Admit Date and Time: 12/14/24 1204 Home Medications Medication Instructions Recorded Confirmed Type gabapentin 300 mg capsule 300 mg PO QPM 11/21/24 12/14/24 History venlafaxine 37.5 mg 37.5 mg PO DAILY 11/21/24 12/14/24 History capsule,extended release 24 hr naproxen sodium 220 mg tablet 220 mg PO DAILY PRN pain 12/14/24 12/14/24 History (Aleve) omeprazole 20 mg capsule,delayed 20 mg PO DAILY PRN heartburn 12/14/24 12/14/24 History release Processed by: Pharmacy Medications reviewed in ED?: No Medication History completed: Yes Patient Interview: Pt unable to participate Secondary Source(s): Other family member (Son) and Insurance records (Venlafaxine last filled for 90 day supply on 07/31/24, still has bottle at home with some in it per son.) [facility] Statement: As the person ultimately responsible for medication therapy, providers are able to order a medication from an existing home medication list in [facility] via the "Reconcile Routine" prior to Confirmation of that medication by windows server support technician. Such practice is discouraged except when the physician, in their clinical judgment, deems that a medical need exists for a medication without regard to previous use.
[2024-12-14] MEDS: SODIUM CHLORIDE 0.9% 1,000 ML IV SCH (16:42)
[2024-12-14] MEDS: SODIUM CHLORIDE FLUSH 0.9% 10 ML SYRINGE IVP SCH (16:42)
[2024-12-15] MEDS: oxyCODONE 5 MG TABLET PO PRN (00:10)
[2024-12-15 05:39] LABS: HCT - HEMATOCRIT 34.8 % (37.0-47.0); HGB - HEMOGLOBIN 10.9 g/dL (12.0-16.0); LYMPHOCYTES # (AUTO) 2.9 10^3/uL (1.5-3.5); LYMPHOCYTES % (AUTO) 39.4 %; MEAN CORPUSCULAR HEMOGLOBIN 25.6 pg (27.0-31.0); MEAN CORPUSCULAR HGB CONC 31.3 g/dL (32.0-36.0); MEAN CORPUSCULAR VOLUME 81.9 fL (81.0-99.0); MONOCYTES # (AUTO) 0.8 10^3/uL (0.0-1.0); MONOCYTES % (AUTO) 10.5 %; NEUTROPHILS # (AUTO) 3.6 10^3/uL (1.5-6.6); NEUTROPHILS % (AUTO) 49.8 %; PLT - PLATELET COUNT 467 10^3/uL (130-450); RED BLOOD COUNT 4.25 10^6/uL (4.20-5.40); RED CELL DISTRIBUTION WIDTH 17.7 % (12.0-15.0); WHITE BLOOD COUNT 7.2 x10^3/uL (4.8-10.8)
[2024-12-15 05:53] LABS: CALCIUM 8.5 mg/dL (8.5-10.3); CREATININE 0.6 mg/dL (0.6-1.3); POTASSIUM 2.8 mmol/L (3.5-4.5)
[2024-12-15] MEDS: ENOXAPARIN 40 MG/0.4 ML SYRINGE SUBQ SCH (08:44)
--- NOTE | 2024-12-15 09:28 | PROVIDER PROGRESS NOTE ---
Subjective Subjective Subjective: Patient is a little more alert today. I did wake her up, and she was very drowsy but able to respond. She denies any fevers or chills. She is able to answer yes or no questions faster. Current Medications Current Medications Current Medications: Current Medications Generic Name Dose Route Start Last Admin Trade Name Freq PRN Reason Stop Dose Admin Acetaminophen 650 mg 12/14/24 12:44 Acetaminophen 325 Mg Tablet PO Q4HR PRN Pain 1 to 4, or Fever Enoxaparin Sodium 40 mg 12/15/24 09:00 12/15/24 08:44 Enoxaparin 40 Mg/0.4 Ml Syringe SUBQ 40 mg DAILY JAZMIN Administration Sodium Chloride 1,000 mls @ 100 mls/hr 12/14/24 13:00 12/15/24 02:40 Normal Saline 0.9% IV 100 mls/hr .Q10H JAZMIN Administration Ondansetron HCl 4 mg 12/14/24 12:44 Ondansetron Odt 4 Mg Tablet TL Q6HR PRN Nausea / Vomiting Ondansetron HCl 4 mg 12/14/24 12:44 Ondansetron 4 Mg/2 Ml Vial IVP Q6HR PRN Nausea / Vomiting Oxycodone HCl 5 mg 12/14/24 12:44 12/15/24 00:10 Oxycodone 5 Mg Tablet PO 5 mg Q4HR PRN Administration Pain 5 to 7 Sodium Chloride 10 ml 12/14/24 12:44 Sodium Chloride Flush 0.9% 10 Ml Syringe IVP PRN PRN NEEDED PER PROVIDER ORDERS Sodium Chloride 10 ml 12/14/24 17:00 12/15/24 08:44 Sodium Chloride Flush 0.9% 10 Ml Syringe IVP 10 ml 0100,0900,1700 JAZMIN Administration Objective Vital Signs/Intake & Output Reviewed Vital Signs: Yes Vital Signs: Vital Signs x48h Temp Pulse Pulse Resp BP Pulse Ox 12/15/24 08:26 97.7 F 70 16 124/82 98 12/15/24 05:00 97.7 F 67 18 130/87 98 Intake & Output: Intake & Output 12/12/24 12/14/24 12/14/24 12/15/24 23:59 00:59 23:59 23:59 Intake Total 50 / 50 1097 / 1097 Output Total 250 / 250 Balance -200 / -200 1097 / 1097 Weight (kg) 65.771 kg 58 kg Objective General Appearance: positive No acute distress, Alert and Lethargic; negative Severe distress or Anxious Eyes Bilateral: positive Normal inspection, PERRL and EOMI ENT: positive ENT inspection nml, Pharynx nml and No signs of dehydration Neck: positive Nml inspection, Thyroid nml and No JVD Respiratory: positive Chest non-tender and No respiratory distress; negative Wheezes, Rales or Rhonchi Cardiovascular: positive Regular rate & rhythm, No murmur and No gallop; negative Tachycardia or Bradycardia Abdomen: positive Non-tender, No organomegaly and No distention; negative Rebound, Hepatomegaly, Splenomegaly or Mass Back: positive Nml inspection; negative CVA tenderness (R) or CVA tenderness (L) Skin: positive Color nml, No rash and Warm Extremities: positive Non-tender, Full ROM and Nml appearance Neurologic/Psychiatric: positive Motor nml and Weakness; negative Disoriented to time Lab Results 12/15/24 05:22 12/15/24 05:22 Other Labs: Lab Results x24hrs 12/15/24 12/14/24 Range/Units 05:22 12:13 WBC 7.2 7.1 (4.8-10.8) x10^3/uL RBC 4.25 4.48 (4.20-5.40) 10^6/uL Hgb 10.9 L 11.7 L (12.0-16.0) g/dL Hct 34.8 L 36.7 L (37.0-47.0) % MCV 81.9 81.9 (81.0-99.0) fL MCH 25.6 L 26.1 L (27.0-31.0) pg MCHC 31.3 L 31.9 L (32.0-36.0) g/dL RDW 17.7 H 18.0 H (12.0-15.0) % Plt Count 467 H 482 H (130-450) 10^3/uL MPV 9.0 9.1 (7.9-10.8) fL Neut # (Auto) 3.6 4.1 (1.5-6.6) 10^3/uL Lymph # (Auto) 2.9 2.4 (1.5-3.5) 10^3/uL [place] # (Auto) 0.8 0.6 (0.0-1.0) 10^3/uL Eos # (Auto) 0.0 0.0 (0.0-0.7) 10^3/uL Baso # (Auto) 0.0 0.0 (0.0-0.1) 10^3/uL Absolute Nucleated RBC 0.00 0.00 x10^3/uL Nucleated RBC % 0.0 0.0 /100WBC Sodium 139 140 (135-145) mmol/L Potassium 2.8 L 3.3 L (3.5-4.5) mmol/L Chloride 112 H 111 (101-111) mmol/L Carbon Dioxide 18 L 19 L (21-32) mmol/L Anion Gap 9.0 10.0 (6-13) BUN 18 19 (6-20) mg/dL Creatinine 0.6 0.7 (0.6-1.3) mg/dL Estimated GFR (MDRD) 100 83 L (>89) Glucose 87 97 (74-104) mg/dL Calcium 8.5 9.4 (8.5-10.3) mg/dL Total Bilirubin 1.1 H (0.2-1.0) mg/dL AST 16 (10-42) IU/L ALT 8 L (10-60) IU/L Alkaline Phosphatase 91 (42-121) IU/L Total Protein 7.5 (6.4-8.9) g/dL Albumin 4.1 (3.2-5.5) g/dL Globulin 3.4 (2.1-4.2) g/dL Albumin/Globulin Ratio 1.2 (1.0-2.2) Lipase 19 (11-82) U/L Diagnostic Imaging Diagnostic Imaging Results: positive Final report reviewed Assessment/Plan Problem List (1) Acute metabolic encephalopathy: Impression: Patient with delayed speech, confusion. Likely due to accidental vs. intentional overdose/polypharmacy with tapentadol and gabapentin use. CT head negative for any acute infarcts. MRI brain negative for any acute ischemic event on last admission. When patient is more awake and medically clear, will need evaluation by SW or Telepsych. (2) Opiate abuse, continuous: Impression: Patient has history of tapentadol abuse with associated AMS, vomiting, and diarrhea per son. Urine drug screen negative. (3) Hypokalemia: Impression: Due to decreased P.O. intake due to above. Repleted, continue to trend. (4) Depression: Impression: Per son, on last admission, patient takes Venlafaxine 37.5 mg daily. However, has not been filled in many months. Will hold at this time. Qualifiers: Depression Type: unspecified Qualified Code(s): F32.A - Depression, unspecified (5) GERD (gastroesophageal reflux disease): Impression: Per son, patient takes Pepcid daily. Will restart at this time. Qualifiers: Esophagitis presence: without esophagitis Qualified Code(s): K21.9 - Gastro-esophageal reflux disease without esophagitis
[2024-12-15] MEDS: POTASSIUM CHLOR 10 MEQ/100 ML 10 MEQ/100 ML BAG IV SCH (10:04)
[2024-12-15] MEDS: POTASSIUM CHLORIDE 20 MEQ TABLET PO ONE ×2 (10:16→17:21)
[2024-12-15] MEDS ORDERED: ZINC OXIDE 20% OINT 30 GM TUBE TOP PRN (19:27)
[2024-12-16 06:18] LABS: BASOPHILS % (AUTO) 0.1 %; HCT - HEMATOCRIT 34.6 % (37.0-47.0); HGB - HEMOGLOBIN 11.1 g/dL (12.0-16.0); LYMPHOCYTES # (AUTO) 2.7 10^3/uL (1.5-3.5); LYMPHOCYTES % (AUTO) 37.3 %; MEAN CORPUSCULAR HEMOGLOBIN 25.8 pg (27.0-31.0); MEAN CORPUSCULAR HGB CONC 32.1 g/dL (32.0-36.0); MEAN CORPUSCULAR VOLUME 80.5 fL (81.0-99.0); MEAN PLATELET VOLUME 8.9 fL (7.9-10.8); MONOCYTES # (AUTO) 0.7 10^3/uL (0.0-1.0); MONOCYTES % (AUTO) 9.8 %; NEUTROPHILS # (AUTO) 3.8 10^3/uL (1.5-6.6); NEUTROPHILS % (AUTO) 52.4 %; PLT - PLATELET COUNT 471 10^3/uL (130-450); RED CELL DISTRIBUTION WIDTH 17.8 % (12.0-15.0); WHITE BLOOD COUNT 7.2 x10^3/uL (4.8-10.8)
[2024-12-16 06:34] LABS: CREATININE 0.7 mg/dL (0.6-1.3); POTASSIUM 3.4 mmol/L (3.5-4.5)
[2024-12-16] MEDS: POTASSIUM CHLORIDE 20 MEQ TABLET PO ONE (09:13)
--- NOTE | 2024-12-16 14:06 | TELEPSYCH PHYS NOTE ---
[facility] Telepsych Consult Consult Date: 12/16/24 Name of Referring Provider:: [employer] Mdm Architect Reason for Consult: AMS Suicide Risk Sreening (ASQ Tool) In the past few weeks, have you wished you were ?: No In the past few weeks, have you felt that you or your family would be better off if you were ?: No In the past week, have you been having thoughts about killing yourself?: No Have you ever tried to kill yourself?: No Assessment Language: Vietnamese Costumer Required: No Cultural, Alevism or Spiritual Preferences: Not mentioned Notes: Unfortunate female has a multiple year history of psychiatric illness with depression and anxiety. She has history of alcohol abuse. Severe grief reaction with her 's and return to alcohol abuse as well as substance abuse. Her substance of choice appears to be Nucynta. She has been hospitalized in November 2022 for an overdose with Nucynta and benzodiazepine. Again hospitalized in April 2024 with overdose and tapentadol. Now comes back in again with probable overuse of Nucynta. With his previous admissions the patient would take 24 to 48 hours to wake up and then she would be sent home. She has not been in the ER for 2 days. She was in the ER December 12. Was after her son found her incoherent. She has been in the ER with no beds available until today. Patient is now admitted to the hospital as we await her recovery from what ever substance that she overdosed on. Social work will be consulted. Evaluated for suicidal ideation and possible need for inpatient psych. 12/15/24 11:38 - Social Work [facility] by [facility]: [id number] : [id number] Patient Age: 68 SW met with patient at bedside to assess needs due to concerns for continued overdose on medications. As the patient is not medically cleared SW completed brief assessment to determine safery in the hospital, full MHE will be completed once patient is medically cleared. The patient reports feeling safe in the hospital and strongly denies all SI/HI/AVH. Patient denies any known unmet needs at this time. SW will follow up to complete an MHE once patient is medically cleared. Provider updated. HPI Comment/Other: Patient is a 68 year old female with history of c.diff, GERD, anxiety, d epression, substance abuse that presents with altered mental status. Patient is unable to give a history due to altered mental status.Patient history acquired via phone call with patient's son, who lives with her. He states that 3 days ago, she was having trouble sleeping and stated she did not feel well. She had episodes of vomiting and diarrhea. Later that day, he found her sitting beside the bed, able to get on the bed, but unable to tell him her name, so he called EMS. He found one package of unprescribed gabapentin, multiple packages of tapentadol, an opiate equivalent she obtained from online, which she has a history of abusing. She has been hospitalized previously for use tapentadol, and has associated vomiting and diarrhea with use. Son states it takes her about 3-5 days to fabiola shawn after being hospitalized for drug use, and feels that it has taken her longer to recover each time. Her last hospitalization for drug use was in April of 2024, after which son discussed cessation with her. He believes she restarted illicit drug use in 08/2024. He notes that she has history of anxiety, depression, and has lost her spouse, mother, and dog in the last couple years and believes she is coping with drugs. At baseline she does ADLs independently, but he does IADLs for her. She was given Narcan by EMS 12/12/24 which seemed to improve mental status. Per ER notes, mental status appears to wax and wane as she had a period yesterday when she acknowledged her use of tapentadol . She was given a dose of Ativan yesterday in ER. She was admitted one month ago, 11/20/24 for a UTI with associated AMS, which in retrospect may have been due to drug use. MRI negative 11/20/24. ER workup including UA, CT head, CT angio head/neck are all negative. Mild microcytic anemia, mild hypokalemia on most recent labs. WBC WNL. On exam, patient is able to follow commands. She knows the year not the month, her first name but not her last name, she knows she is in a hospital but does not know the town or state. She does not know which town she lives in or her birthday. She knows that she lives with her son Baltazar. She is able to read and tell the time. Ny Wiley is her PCP, son is DPOA. Per son, she is DNR, DNI. Chief Complaint: Altered Mental Status History of Present Illness: Patient doesn't know reason for visit, but asked about reason for hospital admit says "Apparently I had taken some gabapentin and so I'm in here". She can say that it must have been an OD. But she has no memory of OD or of taking gabapentin at all lately, not a daily med. Denies much memory at all prior to admit. Can't say much about what meds she took at all prior to admit. She denies being on any daily prescribed medications. Including gabapentin. Asked where she might have gotten it, says she might have got it online. She does not see a doctor or have an online prescription for it. She just orders it. It's just in her search history. Can't say what website. Only gabapentin, that's all she orders she says. It comes in a labelled box. Asked how many pills she takes a day in general, she can't really remember anymore, because she doesn't think she's taken it lately. She denies every hearing of Nucynta or ever ordering any pain medication online ever. She denies ever ordering any online benzodiazepine ever, but does know what benzos are. She denies any suicidal thoughts lately or in recent memory. Says her son it too important for her. She can say it's probably a situation where she took some, forgot, took more, etc. Yet says prior to that she hasn't taken any lately in recent memory. She is not tracking perfectly well but there does seem to be some minimizations as well. Though not entirely evasive, there are a lot of questions she appears to try to answer genuinely. No alcohol or street drugs. Quit drinking in 2014. Went to rehab in 2014, only time. Suicide Ideation - Homicide Ideation - Self Harm: Denies, none reported Psychiatric History - Treatment History: She was to a psychiatrist she says. She laughs. She has seen psych as a patient as well, long ago, nothing recent. Denies any suicide attempts except when she was getting sober. PCP has treated for depression in the past, she thinks lexapro. Community Resources Accessed: ED Family Psych History/ History of suicide: None she knows of. But lots of substance issues "big time in my family", on both sides. Medication & Allergies Ambulatory Orders Medication Instructions Recorded Confirmed gabapentin 300 mg capsule 300 mg PO QPM 11/21/24 12/14/24 venlafaxine 37.5 mg 37.5 mg PO DAILY 11/21/24 12/14/24 capsule,extended release 24 hr naproxen sodium 220 mg tablet 220 mg PO DAILY PRN pain 12/14/24 12/14/24 (Aleve) omeprazole 20 mg capsule,delayed 20 mg PO DAILY PRN heartburn 12/14/24 12/14/24 release Allergies Allergy/AdvReac Type Severity Reaction Status Date / Time No Known Drug Allergies Allergy Verified 12/12/24 15:57 Drug & Alcohol History Does patient have Drug/ETOH history or addictive behavior?: Yes Use Issues: Other (See HPI) Trauma Does the patient have a history of trauma, abuse, neglect or explotation?: Yes Personal Information History or present tendencies for violence (Notes): None noted Services History: She was in [employer], a [place]. 6 years. She is [facility] eligible. Legal Charges or Investigations (Notes): Denies Environment & Living Situation - Social, Peer-Group (Note): At home Environment & Living Situation - Social, Peer-Group (Notes): Lives with her son, shared home they own together. 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 Has inheritance from , investments, etc. Collateral - Interdisciplinary Input: Reviewed per ED notes Medical History Psychiatric: reports Depression and Anxiety Neurological: reports None Eyes, Ears, Nose, Throat: reports Other Cardiovascular: reports None Respiratory: reports None Gastrointestinal: reports GERD and Other Urinary: reports Kidney stones HOUSING MANAGER: reports Other Musculoskeletal: reports Osteoarthritis and Chronic back pain Surgical History Orthopedic: reports Arthroscopic surgery /HOUSING MANAGER: reports Hysterectomy and Oophrectomy Family & Social History Family History Comment/Other: smoker. quit years ago. She was about 2013 alcohol abuse, quit 2013, lives with son. Worked until 2005 when she and moved here. Was in [employer], Living Situation: Alone and With family Social History Notes: Mom still alive but dementia in RETIREMENT Dad of heart failure Siblings: younger brother (halthy_ and older sister (stroke) Son is healthy Childhood History: na Mental Status Exam Appearance and Attire: Appropriate Attitude and Behavior: Cooperative Speech: WNl Affect and Mood: Neutral, congruent Association and Thought Process: Disjointed at times, but not incoherent Thought Content: No SI or HI, no delusional content Perception: Not overtly attending Sensorium, memory and orientation: Alert, oriented to situation, self Intellectual - Cognitive functioning: Normal range Insight and Judgement: Impaired Emotional and Behavioral Functioning: Deteriorated from estimated baseline Ability to Self-Care: Deteriorated from estimated baseline Personal Goals Short-term Goals: Recovery Risk/Protective Factors Risk Factors: Substance intoxication or withdrawal Protective Factors / Internal: Identifies reasons for living Protective Factors / External: Responsibility to children Plan Impression/Risk Assessment: Unspecified Substance Use Disorder Treatment - Therapy Recommendations: This is a very pleasant 68F with history of online substance use/abuse/dependence per records, admitted after being found down with suspected tapentadol overdose. There is no clear evidence of suicidality, patient denies such, and has no history of such either. She is not tracking 100% cognitively, but is not profoundly confused or delirious on interview. She probably needs another day or two of recovery. Although, without having any real idea what substances she has actually been ingesting (considering many online Rx drugs ordered without Rx come from foriegn countries/unofficial sources), it's very hard to predict what withdrawal risks may be coming. The best we can do is compare to past episodes I imagine, unless the actual substances can be located and sent for identification. Currently I'm not finding clear cause for psychiatric hospitalization. Substance abuse treatment clearly seems to be the most pressing need. She does appear cognitively intact enough at baseline, to participate, I have no immediate concerns about dementia/etc. Patient says she is willing to get outpatient substance abuse treatment, but she again is minimizaing, polite but comes up with reasons she will fix things on her own, all while saying at times she has no problem, but when asked directly does actually admit yes she could use help in that regard. Her training background is a barrier I believe to her accepting and admitted the extent of her need for intervention. That being said, I don't believe court ordered drug treatment is an option in [place], so all we can do is provide full eval and offer all available resources. She does have resources to attend likely any program she chooses, it's a matter of her willingness to engage. RECS: Chemical Dependency Consult, if available, for ASAM. Referrals based on result of such. Pharmacological Recommendations: No change from psychiatric side Problem List (1) Acute metabolic encephalopathy: (2) Opiate abuse, continuous: (3) Hypokalemia: (4) Depression: Qualifiers: Depression Type: unspecified Qualified Code(s): F32.A - Depression, unspecified (5) GERD (gastroesophageal reflux disease): Qualifiers: Esophagitis presence: without esophagitis Qualified Code(s): K21.9 - Gastro-esophageal reflux disease without esophagitis Time Spent & Provider Location Telepsych consultation conducted via videoconferencing: Yes List names and roles of persons who participated in consult: Marti Cooper MD Telepsych Provider Location: [place] Time Spent (Minutes): [address] [place] [address] Active Problems All Active Problems (Updated 12/14/24 @ 18:47 by Casi English MD) Hypokalemia (Acute) Opiate abuse, continuous (Acute) Acute alteration in mental status (Acute) UTI due to extended-spectrum beta lactamase (ESBL) producing Escherichia coli (Acute) Depression (Acute) Medical History Medical History Coffee ground emesis w episode of obtundation due to benzo OD and nucynta. To get get EGD in [place] and ? did Hepatitis C Kidney stones Osteoarthritis causing lower back pain Depression with anxiety OD 11/2022, OD 04/2024 w opioid Tapentadol. Alcohol abuse abuse in teens, sober by 2013, but and went back to abuse 2022. also took husbands temazepam causing obtundation. Surgical History Surgical History (Updated 12/14/24 @ 18:44 by Casi English MD) S/P PAULO-BSO H/O arthroscopic knee surgery L knee Social History Social History Smoking Status: Unknown if ever smoked If you are a former smoker, when did you quit? (Date/Year): 2013 Do you dip or chew tobacco?: No Do you vape?: No Living arrangement: At home Living Condition: Alone and With family Relationship: Substance Use: opiods/painkillers POLST Patient has POLST: No POLST Status: DNR
--- NOTE | 2024-12-16 15:25 | Discharge Summary ---
"Discharge Summary Admit Date: 12/14/24 Discharge Date: 12/16/24 Discharging Provider: Dr. Jorge Auguste Primary Care Provider: None Code Status: Attempt Resuscitation Discharge Facility Name: Home DIAGNOSES Admission Diagnoses: Acute alteration in mental status Opiate abuse, continuous Hypokalemia Discharge Diagnoses with Status of Each Condition: Acute metabolic encephalopathylikely secondary to accidental overdose with tapentadol and gabapentin. CT head negative, MRI brain done at last admission was negative as well. Telepsych evaluation completedrecommend substance abuse counseling. Resources provided. Opiate abusecontinue counseling on cessation. Hypokalemiaresolved, likely due to decreased p.o. intake, nausea and vomiting prior to admission. Depressionpatient heavily advised to follow-up with primary care provider, psychiatrist. Patient states she has psychologist in [place]. She states that she sees them monthly. GERDpatient not currently taking any medications for this. HPI History of Present Illness: Per Dr. English: Patient is a 68 year old female with history of c.diff, GERD, anxiety, depression, substance abuse that presents with altered mental status. Patient is unable to give a history due to altered mental status.Patient history acquired via phone call with patient's son, who lives with her. He states that 3 days ago, she was having trouble sleeping and stated she did not feel well. She had episodes of vomiting and diarrhea. Later that day, he found her sitting beside the bed, able to get on the bed, but unable to tell him her name, so he called EMS. He found one package of unprescribed gabapentin, multiple packages of tapentadol, an opiate equivalent she obtained from online, which she has a history of abusing. She has been hospitalized previously for use tapentadol, and has associated vomiting and diarrhea with use. Son states it takes her about 3-5 days to recover after being hospitalized for drug use, and feels that it has taken her longer to recover each time. Her last hospitalization for drug use was in April of 2024, after which son discussed cessation with her. He believes she restarted illicit drug use in 08/2024. He notes that she has history of anxiety, depression, and has lost her spouse, mother, and dog in the last couple years and believes she is coping with drugs. At baseline she does ADLs independently, but he does IADLs for her. She was given Narcan by EMS 3/8/25 which seemed to improve mental status. Per ER notes, mental status appears to wax and wane as she had a period yesterday when she acknowledged her use of tapentadol . She was given a dose of Ativan yesterday in ER. She was admitted one month ago, 11/20/24 for a UTI with associated AMS, which in retrospect may have been due to drug use. MRI negative 11/20/24. ER workup including UA, CT head, CT angio head/neck are all negative. Mild microcytic anemia, mild hypokalemia on most recent labs. WBC WNL. On exam, patient is able to follow commands. She knows the year not the month, her first name but not her last name, she knows she is in a hospital but does not know the town or state. She does not know which town she lives in or her birthday. She knows that she lives with her son Baltazar. She is able to read and tell the time. Ny Wiley is her PCP, son is DPOA. Per son, she is DNR, DNI. CONSULTS | PROCEDURES Consultations: Telepsych Procedures: CT head, CT Angiography HOSPITAL COURSE Hospital Course: Patient is a 68-year-old female with a history of depression who presents with altered mental status. Per son, patient was having trouble sleeping, did not feel well and she had multiple episodes of vomiting and diarrhea. Son found multiple packages of tapentadol, and an opiate equivalent she received from [place], as well as unprescribed gabapentin. Previous hospitalization visits were reviewed, and she does have a history of this. She was given Narcan, which did help wake her up a little bit. Over the course of the next 2 days, she continued to be more awake. This morning she was fully alert, conversive. Telepsych evaluation was completed; patient does not have any active suicidal or homicidal ideation, and is not a candidate for inpatient psych. She will need extensive substance abuse rehab on discharge. Resources were provided to her. She was also advised extensively to follow-up with a primary care provider, she has not seen one in years. After receiving permission from her, her son was spoken with as well, and the above was explained to him. She is medically cleared, and as Telepsych cleared her as well, she was deemed suitable for discharge home. I advised the son to throw away the medications that were at her bedside. She will need close follow-up with primary care provider and psychiatrist. ALLERGIES Allergies Allergy/AdvReac Type Severity Reaction Status Date / Time No Known Drug Allergies Allergy Verified 12/12/24 15:57 PHYSICAL EXAM AT DISCHARGE General Appearance: positive No acute distress and Alert; negative Anxious Eyes Bilateral: positive Normal inspection, PERRL and EOMI ENT: positive ENT inspection nml, Pharynx nml and No signs of dehydration Neck: positive Nml inspection, Thyroid nml and No JVD Respiratory: positive Chest non-tender, No respiratory distress and Breath sounds nml; negative Wheezes, Rales or Rhonchi Cardiovascular: positive Regular rate & rhythm, No murmur and No gallop; negative JVD present, Systolic murmur or Diastolic murmur Peripheral Pulses: positive 2+ Abdomen: positive Non-tender; negative Guarding, Rebound, Hepatomegaly, Splenomegaly or Mass Back: positive Nml inspection; negative CVA tenderness (R) or CVA tenderness (L) Skin: positive Color nml, No rash, Warm and Dry Extremities: positive Non-tender, Full ROM and Nml appearance Neurologic/Psychiatric: positive Oriented x3 and Depressed mood/affect (no active homicidal ideation or suicidal ideation) LABS 12/16/24 06:01 12/16/24 06:01 DIAGNOSTIC IMAGING Diagnostic Imaging Results: Final report reviewed FOLLOW UP Follow Up: Follow up with primary care provider. Follow up with psychiatrist. Follow up with substance abuse rehab resources provided. TIME SPENT Time Spent in Discharge (Minutes): 35 Discharge Plan Discharge Patient Disposition: Home, Self Care Condition: Stable Prescriptions: Discontinued venlafaxine 37.5 mg capsule,extended release 24hr 37.5 mg PO DAILY gabapentin 300 mg capsule 300 mg PO QPM omeprazole 20 mg capsule,delayed release(DR/EC) 20 mg PO DAILY PRN (Reason: heartburn) naproxen sodium [Aleve] 220 mg tablet 220 mg PO DAILY PRN (Reason: pain) Activity Restrictions: Activity as Tolerated Diet: Regular Health Concerns: You came in because you were found to be confused and obtunded. We are concerned that the medications that you have at home have opioids in them. We were also worried that you took too many pills on purpose. We had you speak with the telepsychiatrist, they recommend outpatient substance abuse treatment for opioid use. Our social media strategist has provided you resources for this. I also spoke with your son about the importance of following up with these services. We spoke extensively about cautious use of any supplements or medications, especially those ordered online, and not monitored very closely. You have not seen a primary care provider at this time, I will give you a list of PCPs in the area. If you are having nerve pain, and need gabapentin, they will be able to prescribe this to you in a controlled manner, and follow-up with you closely. We are glad you are feeling better, thank you for letting us take care of you. Print Language: Mongolian Patient Instructions: ED Narcotic Abuse Stand Alone Forms: PCP List Follow-up Care: [place] WILEY ARNP [Primary Care Provider] -"
[2024-12-16 15:55] VITALS: BP 107/71; TEMP 97.5; O2SAT 100
== END 2024-12-16 17:15 | disposition home or self-care (01) | DRG 917 ==
LOC: MS2 15:46 → ED 15:46 → MS2 12-14 12:28
PROVIDERS: ADMIT Specialist; ATTEND Internal Medicine
DX: E87.6 Hypokalemia; G92.8 Other toxic encephalopathy; Z87.891 Personal history of nicotine dependence; Y92.009 Unspecified place in unspecified non-institutional (private) residence as the place of occurrence of the external cause; T40.2X1A Poisoning by other opioids, accidental (unintentional), initial encounter; D50.9 Iron deficiency anemia, unspecified; R11.2 Nausea with vomiting, unspecified; T42.6X1A Poisoning by other antiepileptic and sedative-hypnotic drugs, accidental (unintentional), initial encounter; R41.82 Altered mental status, unspecified; K21.9 Gastro-esophageal reflux disease without esophagitis; F41.8 Other specified anxiety disorders; F41.9 Anxiety disorder, unspecified; F32.A Depression, unspecified; R19.7 Diarrhea, unspecified; Z66 Do not resuscitate; F11.10 Opioid abuse, uncomplicated